=== PATIENT | male | born 1950 | race Caucasian/White ===

== ENCOUNTER 2024-12-06 09:29 | Outpatient (CLI) | payer OTHER, SELFPAY ==
--- NOTE | ~2024-12-06 | XR_ITS ---
XR abdomen/kub 1V Ordering provider: Anish Andrew MD History: . BI kidney stones, BACK/ABDOMEN PAIN X 3+ MONTHS . Comparison: November 10, 2024 FINDINGS: BOWEL: Nonobstructive bowel gas pattern. ORGANOMEGALY: None. SIGNIFICANT PATHOLOGIC CALCIFICATIONS: Left kidney stones. The largest measures 2.4 cm. Stone at the level of the right lumbosacral area is also highly suggestive measuring 2.7 cm. Faint calcification i n the right kidney area is not excluded. OTHER: No free air is seen under the diaphragm. Bilateral hip arthroplasty. Pubic symphysitis. Bilate ral sacroiliitis. IMPRESSION: NO ACUTE ABDOMINAL FINDINGS. Left kidney stones. Highly suggestive right kidney stones with possible stone in the ureter at the level of L5-S1. No change from previous examination. Reviewed, dictated and finalized at location A.
--- OUTSIDE RECORDS SUMMARY | 2024-12-06 10:16 | XMS_ITS | Clinical Summary ---
Author Organization [facility] Address [address] 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 This disclosure is being madepursuant to the Care Everywhere program and may not contain all information available regarding this patient. Last updated 18.[facility] Social History Tobacco Use Types Packs/Day Years Used Date Smoking Tobacco: Never Assessed Sex and Gender Information Value Date Recorded Sex Assigned at Not on file Legal Sex Male 4:56 PM CDT Gender Identity Not on file Sexual Orientation Not on file Plan of Treatment Health Maintenance Due Date Last Done Comments HEPATITIS C SCREENING 04/05/1966 DTAP/TDAP/TD VACCINES (1 - Tdap) 1967 PNEUMOCOCCAL VACCINE 50+ (1 of 1 - PCV) 1998 ZOSTER VACCINE (1 of 2) 1998 Respiratory Syncytial Virus (RSV) Vaccine Pt: or over 60 yrs (1 - 1-dose 75+ series) 2023 COVID-19 VACCINE ( - 2023-2 5 season) 2024 DEPRESSION SCREENING 08/09/2024 MEDICARE AWV CALENDAR YEAR 2024 INFLUENZA VACCINE (Season Ended) 2025 HEPATITIS B VACCINE Aged Out No longe r eligible based on patient's age to complete this topic HIB VACCINE Aged Out No longer eligi ble based on patient's age to complete this topic HPV VACCINE Aged Out No longer eligi ble based on patient's age to complete this topic MENINGOCOCCAL (Group B) VACC INE SHARED DECISION-MAKING Aged Out No longer eligibl e based on patient's age to complete this topic MENINGOCOCCAL GROUPS A/C/Y/W VACCINE Aged Out No longer eligible b ased on patient's age to complete this topic Insurance MEDICARE [employer] MEDICARE ADV
--- OUTSIDE RECORDS SUMMARY | 2024-12-06 10:16 | XMS_ITS | Clinical Summary ---
Author Organization [facility] Address [address] [place] [address] Care Team Providers Care Director Investment Banking Name Role Phone Neto Schaefer MD Unavailable Poncho Troy MD Unavailable Jose Kilgore PA-C Primary Care Provider [phone] Allergies No known active allergies Medications aspirin EC (ASPIRIN EC) 81 MG tablet Take 1 tablet (81 mg total) by mouth daily. 04/20/20 13 Active DAILY MULTIPLE VITAMINS Tab Take 1 tablet by mouth daily. 04/20/20 13 Active metFORMIN 500 MG tablet Take 2 tablets (1,000 mg total) by mouth 2 (two) times daily. 08/29/19 16 Active Cholecalciferol 50 MCG (2000 UT) Tab Take 1 tablet by mouth daily. 07/26/20 14 Active gabapentin 300 MG capsule Take 1 capsule (300 mg total) by mouth 3 (three) times daily. 04/03/20 16 Active Cyanocobalamin (VITAMIN B-12) 2000 MCG Tab Take 100 mcg by mouth daily. 04/03/20 16 Active [place]-3 Fatty Acids (OMEGA-3 FISH OIL) 1200 MG Cap Take 1,200 mg by mouth daily. 04/03/20 16 Active HYDROCHLOROTHIA ZIDE 12.5 MG tablet TAKE 1 TABLET BY MOUTH DAILY 90 tablet 1 11/05/19 19 Active Qdxq-Mcxzj-HUV- [place]wellia-Vit D (GLUCOSAMINE CHONDROITIN + D3 OR) Take 2 tablets by mouth daily. Active clindamycin 300 MG capsule For dentist appt.'s due to bilat hip replacements 11/07/19 Active fenofibrate 160 MG tablet Take 1 tablet (160 mg total) by mouth daily. 90 tablet 3 01/08/20 23 Active amLODIPine (NORVASC) 10 MG tablet Take 1 tablet (10 mg total) by mouth daily. 90 tablet 3 01/08/20 23 Active FARXIGA 10 MG tablet Take 1 tablet (10 mg total) by mouth daily. 08/23/19 25 Active lisinopril (PRINIVIL) 20 MG tabletIndicatio ns:Essential hypertension TAKE 1 TABLET DAILY 90 tablet 1 11/09/19 25 Active warfarin (COUMADIN) 5 MG tabletIndicatio ns:Paroxysmal atrial fibrillation (CMS/HCC HHS/HCC) NEW DOSE: Take 1/2 tablet (2.5mg total) by mouth on Tuesdays, then take 1 tablet (5mg total) all the rest. 90 tablet 11/09/19 25 Active metoprolol tartrate (LOPRESSOR) 50 MG tabletIndicatio ns:Essential hypertension Take 1 tablet (50 mg total) by mouth 2 (two) times daily. Take with 25mg tablet to equal 75mg twice a day 180 tablet 1 11/09/19 25 Active metoprolol tartrate (LOPRESSOR) 25 MG tabletIndicatio ns:Essential hypertension TAKE 1 TABLET TWICE A DAY. TAKE WITH 50 MG TO EQUAL 75 MG 180 tablet 1 11/09/19 25 Active lisinopril (PRINIVIL) 20 MG tabletIndicatio ns:Essential hypertension Take 1 tablet (20 mg total) by mouth daily. 90 tablet 08/31/19 25 2024 Discontinued metoprolol tartrate (LOPRESSOR) 25 MG tabletIndicatio ns:Essential hypertension Take 1 tablet (25 mg total) by mouth 2 (two) times daily. TAKE WITH 50MG TO EQUAL 75MG 180 tablet 08/31/19 25 2024 Discontinued metoprolol tartrate (LOPRESSOR) 50 MG tabletIndicatio ns:Essential hypertension Take 1 tablet (50 mg total) by mouth 2 (two) times daily. 180 tablet 08/31/19 25 2024 Discontinued warfarin (JANTOVEN) 5 MG tabletIndicatio ns:Paroxysmal atrial fibrillation ([facility]) Take 1 tablet (5 mg total) by mouth daily. 90 tablet 08/31/19 25 2024 Discontinued Active Problems Problem Noted Date Diagnosed Date Diverticulosis 01/15/2022 Rectal polyp 01/15/2022 Internal hemorrhoid 01/15/2022 Skin tags, anus or rectum 01/15/2022 Essential hypertension 09/09/2017 PVC (premature ventricular contraction) 09/03/19 17 Dyslipidemia 09/03/2016 Coronary artery calcification seen on CT scan Paroxysmal atrial fibrillation ([facility] HHS/HCC) Obstructive sleep apnea chandra stephenie with continuous positive airway pressure (CPAP) Diabetes mellitus ([facility]) Resolved Problems Problem Noted Date Diagnosed Date Resolved Date Coronary artery disease invo lving stebbins coronary artery of stebbins heart without angina pectoris 09/03/2016 09/07/2017 S/P ablation of atrial fibrillation 04/03/2016 09/07/2017 PAF (paroxysmal atrial fibri llation) ([facility] HHS/HCC) 01/22/2016 09/07/2017 CAD (coronary artery disease) 09/07/2017 Encounters Date Type Department Care Team Description 12/01/2024 11:05 AM CDT - 12/01/2024 11:59 PM CDT Hospital Encounter [facility] [address] [place] [address] Neto Schaefer MD Discharge Disposition: Home or Self Care (Routine Discharge) 12/01/2024 Anti-Coag Telephone Call [facility], [address] [address] Vibha Anna RN Anticoagulation (protime) 12/01/2024 Travel 11/10/2024 3:09 PM CDT - 11/10/2024 11:59 PM CDT Hospital [place] [address] [place] [address] Jose Kilgore PA-C Discharge Disposition: Home or Self Care (Routine Discharge) 11/10/2024 Travel 11/02/2024 8:35 AM CDT - 11/02/2024 11:59 PM CDT Hospital Encounter [facility] [address] [place] [address] Neto Schaefer MD Discharge Disposition: Home or Self Care (Routine Discharge) 11/02/2024 Anti-Coag Telephone Call [facility], [address] [address] [place] [address] Vibha Anna RN Anticoagulation (protime) 11/02/2024 Travel 10/13/2024 11:50 AM INTEGRATED PEST MANAGEMENT TECHNICIAN - 10/13/2024 11:59 PM INTEGRATED PEST MANAGEMENT TECHNICIAN Hospital Encounter [address] [address] Neto Schaefer MD Discharge Disposition: Home or Self Care (Routine Discharge) 10/13/2024 Anti-Coag Telephone Call [facility], [address] [address] Vibha Anna RN Anticoagulation (protime) 10/13/2024 Travel 09/28/2024 8:55 AM INTEGRATED PEST MANAGEMENT TECHNICIAN - 09/28/2024 11:59 PM INTEGRATED PEST MANAGEMENT TECHNICIAN Hospital Encounter [address] [address] Neto Schaefer MD Discharge Disposition: Home or Self Care (Routine Discharge) 09/28/2024 Anti-Coag Telephone Call [facility], [place] [address] [place] [address] Vibha Anna RN Anticoagulation (protime) 09/28/2024 Travel from Last 3 Months Immunizations Immunization Administration Dates Next Due PFIZER COVID-19 (ORIGINAL FORMULATION, PURPLE CAP) mRNA, LNP-S, PF, 30 MCG/0.3 ML DOSE 11/26/2021,06/28/2021,08/16/2020,2019 Family History Medical History Relation Comments No premature coronary artery disease. 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 Not on file Not on file Not on file Last Filed Vital Signs Vital Sign Reading Time Taken Comments Blood Pressure 130/76 08/31/2024 2:46 PM INTEGRATED PEST MANAGEMENT TECHNICIAN Pulse 85 08/31/2024 2:46 PM INTEGRATED PEST MANAGEMENT TECHNICIAN Temperature 36.7 C (98.1 F) 02/10/2022 3:31 PM CDT Respiratory Rate 16 01/15/2022 9:10 AM CDT Oxygen Saturation 98% 08/31/2024 2:46 PM INTEGRATED PEST MANAGEMENT TECHNICIAN Inhaled Oxygen Concentration - - Weight 117.9 kg (260 lb) 08/31/2024 2:46 PM INTEGRATED PEST MANAGEMENT TECHNICIAN Height 188 cm (6' 2 ) 08/31/2024 2:46 PM INTEGRATED PEST MANAGEMENT TECHNICIAN Body Mass Index 33.38 08/31/2024 2:46 PM INTEGRATED PEST MANAGEMENT TECHNICIAN Plan of Treatment Upcoming Encounters Date Type Department Care Team (Late st Contact Info) Description 03/08/2025 11:00 AM CDT Office Visit [facility]-[address] [phone] Michelle Knox, ANP-[facility]. [id number] [place], [place] [id number] Health Maintenance Due Date Last Done Comments ASCVD Statin 1950 Diabetes: Retinopathy Eye Exam 1966 Hepatitis C 1966 DTaP, Tdap and Td Vaccines (1 - Tdap) 1967 Annual Medicare Wellness Visit 2013 Zoster Vaccines (2 of 3) 09/04/2014 07/10/2014 RSV Immunization or 60+ Years (1 - 1-dose 75+ series) 2023 COVID-19 Vaccine ( season) 2024 11/26/2021, 06/28/2021, 08/16/2020, Additional history exists Hemoglobin A1C 01/18/2025 07/20/2024, 06/11, 08/20/2022, Additional history exists Kidney Health Evaluation 07/20/2025 07/20/2024 Lipid Panel 07/20/2025 07/20/2024, 06/11, 08/22/2021, Additional history exists Pneumococcal Vaccine: 50+ Years Completed 05/07/2020, 05/04/2013 Colorectal Cancer Screening Colonoscopy (10 Years) Discontinued 01/15/2022, 01/15/2022 AAA SCREENING Completed 11/10/2024, 07/10, 10/31/2018, Additional history exists Meningococcal B Vaccine Aged Out No l onger eligible based on patient's age to complete this topic Meningococcal Vaccine Aged Out No alber ton eligible based on patient's age to complete this topic RSV Immunizations Under 20 Months Aged Out No longer eligible based on patient's age to complete this topic Procedures Procedure Name Priority Date/Time Associated Diagnosis Comments PROTHROMBIN TIME, FINGERSTICK Routine 12/01/2024 11:09 AM CDT Paroxysmal atrial fibrillation ([facility]/HCC HHS/HCC) long term care phlebotomist (current) use of anticoagulants CT ABD+PEL WO CON Routine 11/10/2024 4:1 4 PM CDT Hematuria, unspecified PROTHROMBIN TIME, FINGERSTICK Routine 11/02/2024 8:41 AM CDT Paroxysmal atrial fibrillation (CMS/HCC HHS/HCC) long term care phlebotomist (current) use of anticoagulants PROTHROMBIN TIME, FINGERSTICK Routine 10/13/2024 11:51 AM INTEGRATED PEST MANAGEMENT TECHNICIAN Paroxysmal atrial fibrillation (CMS/HCC HHS/HCC) long term care phlebotomist (current) use of anticoagulants PROTHROMBIN TIME, FINGERSTICK Routine 09/28/2024 9:01 AM INTEGRATED PEST MANAGEMENT TECHNICIAN Paroxysmal atrial fibrillation (CMS/HCC HHS/HCC) skilled nursing (current) use of anticoagulants LIPID PANEL Routine 07/20/2024 9:06 AM INTEGRATED PEST MANAGEMENT TECHNICIAN Hyperlipemia Type 2 diabetes mellitus without complications (CMS/HCC HHS/HCC) Hypertension Encounter for screening for malignant neoplasm of prostate HEMOGLOBIN, GLYCOSYLATED Routine 07/20/2024 9:06 AM INTEGRATED PEST MANAGEMENT TECHNICIAN Hyperlipemia Type 2 diabetes mellitus without complications (CMS/HCC HHS/HCC) Hypertension Encounter for screening for malignant neoplasm of prostate COLONOSCOPY Routine 01/15/2022 6:27 AM CDT from Last 3 Months or Most Recently Relevant to Health Maintenance Results * (ABNORMAL) PROTIME/INR, FINGERSTICK (12/01/2024 11:09 AM CDT) Only the most recent of4 resultswithin the time period is included. PROTIME WHOLE BLOOD 29.9(H) 12.0 - 14.5 SEC 12/01/2024 11:11 AM CDT [facility] INR WHOLE BLOOD 2.5(H) 0.9 - 1.1 11:11 AM CDT [facility] Comment: Recommended INR Therapeutic Goals: 2.0-3.0 Routine Therapy 2.5-3.5 Mechanical Prosthetic Valves (High Risk) TESTING PERFORMED ON POINT OF CARE VALDEZ COAGUCHECK ANALYZER. NOTE: Heparin and Low molecular weight heparins can affect results at various INR levels. If patient is currently on these medications, an alternate method of coagulation testing is strongly recommended. 12/01/2024 11:0 9 AM CDT us Neto Schaefer MD LABORATORY Final Result [facility] [address] [place] [address], * CT ABD+PEL WO CON (11/10/2024 4:14 PM CDT) Anatomical Region Laterality Modality Abdomen Computed Tomogra phy 11/12/2024 12:2 0 PM CDT Addenda Addendum by Nick Nathan MD on 11/12/2024 12:47 PM CDT [facility] [address] [place] [address] Addendum: The renal cyst described in impression point #3 could be further characterized with a renal ultrasound. Referred By: JOSE KILGORE Interpreted By: Nick Nathan MD, 11/12/2024 12:41 PM Impressions 11/12/2024 12:32 PM CDT Impression: 1. A large 1.8 cm ovoid stone is seen within the mid right ureter resulting in mild to moderate hydronephrosis. 2. Multiple nonobstructing stones are seen within the left kidney, measuring up to 1.8 cm. 3. Bilateral renal cysts as described. 4. Other chronic and nonemergent findings as above. Referred By: JOSE KILGORE Interpreted By: Nick Nathan MD, 11/12/2024 12:20 PM Narrative 11/12/2024 12:32 PM CDT [facility] [address] [place] [address] Examination: CT abdomen and pelvis without IV contrast. Clinical Information: Hematuria. Back pain. Comparison: CT 08/04/2019. Technique: IV contrast: None Oral contrast: None. Technical comments: Standard technique. Dose reduction: This CT exam was performed using one or more of the following dose reduction techniques: Automated exposure control, adjustment of the mA and/or kV according to patient size, and/or use of iterative reconstruction technique. Findings: LOWER CHEST The visualized heart appears normal in size. Subpleural reticulation and small pleural calcifications are redemonstrated. No pleural effusion. UPPER ABDOMEN Liver and bile ducts: Normal in size and contour. No biliary dilatation. Gallbladder: Surgically absent. Pancreas: Negative. Spleen: Negative. RETROPERITONEUM Adrenals: Negative. Kidneys: A large 1.8 cm ovoid stone is present within the mid right ureter. There is associated mild to moderate hydronephrosis. No left ureteral stones identified. Multiple nonobstructing stones are seen within the mid to lower left kidney, measuring up to 1.8 cm. A prominent parapelvic left renal cyst is identified measuring 4.3 cm, increased from 2.8 cm. This is well circumscribed and water density and favored benign. A 1.6 cm exophytic water density cyst is seen involving the lower pole the right kidney, appearing new from prior although favored to represent a simple cyst. Additional ill-defined hypodense cortically based cysts are seen involving the right kidney, poorly characterized without contrast. Lymph nodes: No lymphadenopathy in the abdomen or pelvis. BOWEL AND PERITONEUM Bowel: Normal in caliber and wall thickness. Free air or fluid: None. VASCULATURE Atherosclerotic vascular calcification of the abdominal aorta without aneurysm. PELVIS Partially obscured by artifact related to the bilateral hip arthroplasties. Within limitations, no definite stones are seen within the unenhanced urinary bladder. BONES/SOFT TISSUES Moderate multilevel spondylosis. Bilateral hip arthroplasties. No acute osseous abnormality is identified. Procedure Note Nick Nathan MD - 11/12/2024 [facility] [address] [place] [address] Examination: CT abdomen and pelvis without IV contrast. Clinical Information: Hematuria. Back pain. Comparison: CT 08/04/2019. Technique: IV contrast: None Oral contrast: None. Technical comments: Standard technique. Dose reduction: This CT exam was performed using one or more of thefollowing dose reduction techniques: Automated exposure control,adjustment of the mA and/or kV according to patient size, and/or use ofiterative reconstruction technique. Findings: LOWER CHEST The visualized heart appears normal in size. Subpleural reticulation andsmall pleural calcifications are redemonstrated. No pleural effusion. UPPER ABDOMEN Liver and bile ducts: Normal in size and contour. No biliary dilatation. Gallbladder: Surgically absent. Pancreas: Negative. Spleen: Negative. RETROPERITONEUM Adrenals: Negative. Kidneys: A large 1.8 cm ovoid stone is present within the mid rightureter. There is associated mild to moderate hydronephrosis. No leftureteral stones identified. Multiple nonobstructing stones are seen withinthe mid to lower left kidney, measuring up to 1.8 cm. A prominentparapelvic left renal cyst is identified measuring 4.3 cm, increased from2.8 cm. This is well circumscribed and water density and favored benign. A1.6 cm exophytic water density cyst is seen involving the lower pole theright kidney, appearing new from prior although favored to represent asimple cyst. Additional ill-defined hypodense cortically based cysts areseen involving the right kidney, poorly characterized without contrast. Lymph nodes: No lymphadenopathy in the abdomen or pelvis. BOWEL AND PERITONEUM Bowel: Normal in caliber and wall thickness. Free air or fluid: None. VASCULATURE Atherosclerotic vascular calcification of the abdominal aorta withoutaneurysm. PELVIS Partially obscured by artifact related to the bilateral hiparthroplasties. Within limitations, no definite stones are seen within theunenhanced urinary bladder. BONES/SOFT TISSUES Moderate multilevel spondylosis. Bilateral hip arthroplasties. No acuteosseous abnormality is identified. Impression: 1. A large 1.8 cm ovoid stone is seen within the mid right ureterresulting in mild to moderate hydronephrosis. 2. Multiple nonobstructing stones are seen within the left kidney,measuring up to 1.8 cm. 3. Bilateral renal cysts as described. 4. Other chronic and nonemergent findings as above. Referred By: JOSE KILGORE Interpreted By: Nick Nathan MD, 11/12/2024 12:20 PM us Jose Kilgore PA-C CT Edited Res ult - Final * (ABNORMAL) HEMOGLOBIN, GLYCOSYLATED (07/20/2024 9:06 AM INTEGRATED PEST MANAGEMENT TECHNICIAN) HGB A1C 5.9(H) <5.7 % 07/20/2024 4:58 PM INTEGRATED PEST MANAGEMENT TECHNICIAN [facility] Comment: ADA GUIDELINES 2010 5.7 TO 6.4% INCREASED RISK OF DIABETES > OR = 6.5% CONSISTENT WITH DIABETES ESTIMATED AVG GLUCOSE 123 mg/dL 07/20/2024 4:58 PM INTEGRATED PEST MANAGEMENT TECHNICIAN [facility] 07/20/2024 9:06 AM INTEGRATED PEST MANAGEMENT TECHNICIAN us Yovani Mendoza MD LABORATORY Final Res ult [facility] [address] [place] [address], [place] [phone] * (ABNORMAL) LIPID PANEL (07/20/2024 9:06 AM INTEGRATED PEST MANAGEMENT TECHNICIAN) CHOLESTEROL 158 <200 MG/DL 07/20/2024 11:[address] [facility] TRIGLYCERIDES 223(H) <150 MG/DL 07/20/2024 11:[address] [facility] HDL 39(L) >40.0 MG/DL 07/20/2024 11:[address] [facility] LDL (CALCULATED) 74 <100 MG/DL 07/20/2024 11:[address] [facility] NON HDL CHOLESTEROL 119 <130 MG/DL 07/20/2024 11:[address] [facility] Comment: NOTE: WHEN THE TRIGLYCERIDES ARE >200 mg/dL, NON HDL C IS A SECONDARY TARGET OF THERAPY, WITH A GOAL 30 mg/dL HIGHER THAN THE IDENTIFIED LDL C GOAL. CHOL/HDL RATIO 4.1 0.0 - 4.5 07/20/2024 11:[address] [facility] VLDL CALCULATION 45 5 - 55 MG/DL 07/20/2024 11:[address] [facility] LIPID INTERPRETATION 07/20/2024 11:[address] [facility] Comment: NIH CONCENSUS REPORT RECOMMENDATIONS: ADULT CHILD LOW RISK: CHOLESTEROL <200 <170 TRIGLYCERIDE <150 --- HDL >=60 --- LDL <100 <110 BORDERLINE: CHOLESTEROL 200-239 170-199 TRIGLYCERIDE 150-199 --- HDL 40-59 --- LDL 100-159 110-129 HIGH RISK: CHOLESTEROL >=240 >=200 TRIGLYCERIDE >=200 --- HDL <40 --- LDL >=160 >=130 07/20/2024 9:06 AM [facility] Yovani Mendoza MD LABORATORY Final Res ult [facility] [address] [place] [address], from Last 3 Months or Most Recently Relevant to Health Maintenance Insurance [employer] Advance Directives Documents on File Type Date Recorded Patient Party Plan Selling Distributor Expl anation Advance Directives and Living Will 08/04/2019 4:12 PM 10/23/18 POWER OF PRESS ROOM SUPERVISOR Advance Directives and Living Will 09/19/2018 12:00 AM POWER OF PRESS ROOM SUPERVISOR FO R HEALTH CARE Advance Directives and Living Will 08/03/2018 12:00 AM POWER OF PRESS ROOM SUPERVISOR FO R HEALTH CARE Advance Directives and Living Will 06/21/2018 12:00 AM POWER OF PRESS ROOM SUPERVISOR FO R HEALTH CARE Advance Directives and Living Will 06/21/2018 12:00 AM POWER OF PRESS ROOM SUPERVISOR FO R HEALTH CARE Advance Directives and Living Will 04/08/2018 12:00 AM POWER OF PRESS ROOM SUPERVISOR FO R HEALTH CARE Advance Directives and Living Will 04/08/2018 12:00 AM POWER OF PRESS ROOM SUPERVISOR FO R HEALTH CARE Advance Directives and Living Will 03/22/2018 12:00 AM POWER OF PRESS ROOM SUPERVISOR FO R HEALTH CARE Advance Directives and Living Will 03/22/2018 12:00 AM POWER OF PRESS ROOM SUPERVISOR FO R HEALTH CARE Advance Directives and Living Will 02/01/2018 12:00 AM POWER OF PRESS ROOM SUPERVISOR FO R HEALTH CARE Advance Directives and Living Will 02/01/2018 12:00 AM POWER OF PRESS ROOM SUPERVISOR FO R HEALTH CARE Advance Directives and Living Will 12/14/2017 12:00 AM POWER OF PRESS ROOM SUPERVISOR FO R HEALTH CARE Advance Directives and Living Will 12/14/2017 12:00 AM POWER OF PRESS ROOM SUPERVISOR FO R HEALTH CARE Advance Directives and Living Will 09/13/2017 12:00 AM POWER OF PRESS ROOM SUPERVISOR FO R HEALTH CARE Advance Directives and Living Will 09/13/2017 12:00 AM POWER OF PRESS ROOM SUPERVISOR FO R HEALTH CARE Advance Directives and Living Will 08/03/2017 12:00 AM POWER OF PRESS ROOM SUPERVISOR FO R HEALTH CARE Advance Directives and Living Will 08/03/2017 12:00 AM POWER OF PRESS ROOM SUPERVISOR FO R HEALTH CARE Advance Directives and Living Will 06/22/2017 12:00 AM POWER OF PRESS ROOM SUPERVISOR FO R HEALTH CARE Advance Directives and Living Will 06/22/2017 12:00 AM POWER OF PRESS ROOM SUPERVISOR FO R HEALTH CARE Advance Directives and Living Will 03/23/2017 12:00 AM POWER OF PRESS ROOM SUPERVISOR FO R HEALTH CARE Advance Directives and Living Will 03/23/2017 12:00 AM POWER OF PRESS ROOM SUPERVISOR FO R HEALTH CARE Advance Directives and Living Will 02/02/2017 12:00 AM POWER OF PRESS ROOM SUPERVISOR FO R HEALTH CARE Advance Directives and Living Will 02/02/2017 12:00 AM POWER OF PRESS ROOM SUPERVISOR FO R HEALTH CARE Advance Directives and Living Will 12/14/2016 12:00 AM POWER OF PRESS ROOM SUPERVISOR FO R HEALTH CARE Advance Directives and Living Will 12/14/2016 12:00 AM POWER OF PRESS ROOM SUPERVISOR FO R HEALTH CARE Advance Directives and Living Will 09/08/2016 12:00 AM POWER OF PRESS ROOM SUPERVISOR FO R HEALTH CARE Advance Directives and Living Will 09/08/2016 12:00 AM POWER OF PRESS ROOM SUPERVISOR FO R HEALTH CARE Advance Directives and Living Will 07/27/2016 12:00 AM POWER OF PRESS ROOM SUPERVISOR FO R HEALTH CARE Advance Directives and Living Will 07/27/2016 12:00 AM POWER OF PRESS ROOM SUPERVISOR FO R HEALTH CARE Advance Directives and Living Will 07/27/2016 12:00 AM POWER OF PRESS ROOM SUPERVISOR FO R HEALTH CARE Advance Directives and Living Will 07/27/2016 12:00 AM POWER OF PRESS ROOM SUPERVISOR FO R HEALTH CARE Advance Directives and Living Will 06/15/2016 12:00 AM POWER OF PRESS ROOM SUPERVISOR FO R HEALTH CARE Advance Directives and Living Will 06/15/2016 12:00 AM POWER OF PRESS ROOM SUPERVISOR FO R HEALTH CARE Advance Directives and Living Will 06/05/2016 12:00 AM POWER OF PRESS ROOM SUPERVISOR FO R HEALTH CARE Advance Directives and Living Will 06/05/2016 12:00 AM POWER OF PRESS ROOM SUPERVISOR FO R HEALTH CARE Care Teams Director Investment Banking Relationship Specialty Start Date End Date Jose Kilgore, PAJlC [address] [place], [place] [id number] [place] [address] PCP - General 08/28/24 Neto Schaefer MD [facility]. [address] [address] [place] [employer] Applications Development Analyst CARDIOVASCULAR DISEASE 02/21/16 Poncho Troy MD [facility]. [address] [address] Applications Development Analyst CARDIOVASCULAR DISEASE 03/09/16
--- OUTSIDE RECORDS SUMMARY | 2024-12-06 10:16 | XMS_ITS | Encounter Summary ---
Author Organization [facility] Address [address] [facility] [address] Care Team Providers Care Shellfish Checker Name Role Phone Unavailable Primary Care Provider Unavailabl e Encounter Details Date Type Department Care Team (Late st Contact Info) Description 12/06/2020 Lab Requisition [facility] DermPath Lab [address] [facility] [place] [phone] Neo Tang MD [address] [address] Social History Tobacco Use Types Packs/Day Years Used Date Smoking Tobacco: Never Assessed Sex and Gender Information Value Date Recorded Sex Assigned at Not on file Legal Sex Male 4:56 PM CDT Gender Identity Not on file Sexual Orientation Not on file documented as of this encounter Plan of Treatment Not on file documented as of this encounter Procedures Procedure Name Priority Date/Time Associated Diagnosis Comments DERMATOPATHOLOGY Routine 12/05/2020 12:0 0 AM CDT documented in this encounter Results * DERMATOPATHOLOGY (12/05/2020 12:00 AM CDT) Case Report Dermatopathology Report Case: [id number] Authorizing Provider: Neo Tang MD Collected: 12/05/2020 12:00 AM Ordering Location: [facility] DermPath Lab Received: 12/06/2020 06:12 AM Pathologist: Debra De León MD Specimens: A) - Skin, left dorsal hand B) - Skin, left postauricular hairline 1:45 PM CDT DERMATOPATHOLOGY LABORATORY Final Diagnosis Specimen A. 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 Path# [id number]. B: SCCA vs AK. Path# [id number]. 1:45 PM T DERMATOPATHOLOGY LABORATORY Gross Description Specimen A: Received is one formalin filled container labeled with the patient's name and designated left dorsal hand. The specimen consists of a shave biopsy measuring [id number]. Jar 0. Specimen B: Received is one formalin filled container labeled with the patient's name and designated left postauricular hairline. The specimen consists of a shave biopsy measuring [id number]. Jar 0. 1:45 PM T DERMATOPATHOLOGY LABORATORY Microscopic Description Specimen A. SKIN, left dorsal hand: The epidermis shows parakeratosis, full thickness disorderly maturation of keratinocytes, mitoses at different levels, and dyskeratotic cells. Specimen B. SKIN, left postauricular hairline: Sections show skin with irregularly shaped nests of keratinocytes with evidence of cornification. In some nests, there is loss of cohesion between the neoplastic cells, as well as individual dyskeratotic cells that lack intercellular bridges. 1:45 PM T DERMATOPATHOLOGY LABORATORY Disclaimer An external and internal positive and negative controls are appropriate for the histochemical, immunohistochemical and immunofluorescence stain(s) in this case (if any), except where stated explicitly. The performance characteristics of the stain(s) cited in this report were developed and its performance characteristic determined by the Dermatopathology Laboratory at [facility], directed by Dr. Violetta Daniel. These tests need not be, and therefore are not, approved by the [place] Food and Drug Administration. The tests are used for clinical purposes. Billing Codes Specimen Charges Stain Charges 42279 90040 1 1 1 1:45 PM CDT DERMATOPATHOLOGY LABORATORY Embedded Images 1:45 PM CDT DERMATOPATHOLOGY LABORATORY Pathology/Cytology TISSUE SPECIMEN FROM SKIN / Unknown 12/05/2020 12/06/2020 6:12 AM CDT Miscellaneous samples (specimen) TISSUE SPECIMEN FROM SKIN / Unknown 12/05/2020 12/06/2020 6:12 AM CDT us Noe Tang MD LAB - PATHOLOGY/CYTOLOGY ORDER ESTRELLA Final Result DERMATOPATHOLOGY LABORATORY [facility] - Department of Dermatology [facility] Medicine [address] [place] [address], [address]rd [address] [phone] documented in this encounter Visit Diagnoses Not on filedocumented in this encounter
--- OUTSIDE RECORDS SUMMARY | 2024-12-06 10:16 | XMS_ITS | Encounter Summary ---
Author Organization [facility] Address [address] [place] [address] Care Team Providers Care Development Professional Name Role Phone Neto Schaefer MD Unavailable Goyo Beavers MD Primary Care Provider [phone] Poncho Troy MD Unavailable Yovani Mendoza MD Primary Care Provider + [phone] Janee NathC Primary Care Provider [phone] Encounter Details Date Type Department Care Team (Late st Contact Info) Description 08/23/[address] [facility] [address] [place] [phone] Michelle Knox, ANP-BC [id number] [place] [address] Test results ordered by primary Goyo Beavers MD Social History Tobacco Use Types Packs/Day Years Used Date Smoking Tobacco: Former Cigarettes Q uit: 2010 Smokeless Tobacco: Never Alcohol Use Standard Drinks/Week Comments No 0 (1 standard drink = 0.6 oz pur e alcohol) Sex and Gender Information Value Date Recorded Sex Assigned at Male 08/22/2024 10:32 AM LABORER WHARF Legal Sex Male 11:40 PM CDT Gender Identity Not on file Sexual Orientation Not on file 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 No / Unsure 08/22/2021 9:15 AM LABORER WHARF documented as of this encounter Plan of Treatment Upcoming Encounters Date Type Department Care Team (Late st Contact Info) Description 03/08/2025 11:00 AM CDT Office Visit [facility] [address] [place] [phone] Michelle Knox, ANP-BC [address] [address] documented as of this encounter Visit Diagnoses Not on filedocumented in this encounter Care Teams Development Professional Relationship Specialty Start Date End Date Goyo Beavers MD [address] [address] PCP - General INTERNAL MEDICINE 03/09/16 07/08/22 Yovani Mendoza MD [address] [place] [address] PCP - General FAMILY PRACTICE 07/09/22 08/27/24 Janee Nath PA-C [address] [place] [address] PCP - General 08/28/24 Neto Schaefer MD [facility] [address] [place], [place] [address] Will Extrusion Press Supervisor CARDIOVASCULAR DISEASE 02/21/16 Poncho Troy MD Three [facility]. [address] [address] EP Extrusion Press Supervisor CARDIOVASCULAR DISEASE 03/09/16 documented as of this encounter
--- OUTSIDE RECORDS SUMMARY | 2024-12-06 10:16 | XMS_ITS | Encounter Summary ---
Author Organization [facility] Address [address] [facility] [place] [address] Care Team Providers Care Body Shop Technician Name Role Phone Unavailable Primary Care Provider Unavailabl e Encounter Details Date Type Department Care Team (Late st Contact Info) Description 08/30/2020 Lab Requisition [facility] DermPath Lab [address] [facility] [place] [phone] Neo Tang MD [address] [place] [address] Social History Tobacco Use Types [...] Priority Date/Time Associated Diagnosis Comments DERMATOPATHOLOGY Routine 08/29/2020 3:27 AM LEATHER STRETCHER documented in this encounter Results * DERMATOPATHOLOGY (08/29/2020 3:27 AM LEATHER STRETCHER) Case Report Dermatopathology Report Case: [id number] Authorizing Provider: Neo Tang MD Collected: 08/29/2020 03:27 AM Ordering Location: [facility] DermPath Lab Received: 08/30/2020 07:26 AM Pathologist: Constanza Castro MD Specimens: A) - Skin, frontal scalp B) - Skin, crown 1:20 PM LEATHER STRETCHER DERMATOPATHOLOGY LABORATORY Final Diagnosis Specimen A. SKIN, frontal scalp: HYPERPLASTIC (HYPERTROPHIC) ACTINIC KERATOSIS, LICHENOID (L57.0)= OVERLYING CUTANEOUS HORN (L85.8) Specimen B. SKIN, crown: HYPERPLASTIC (HYPERTROPHIC) ACTINIC KERATOSIS, LICHENOID (L57.0) OVERLYING CUTANEOUS HORN (L85.8) 1:20 PM [facility] DERMATOPATHOLOGY LABORATORY Clinical History A: SCCA vs AK. Path# [id number]. B: SCCA vs AK. Path# [id number]. 1:20 PM [facility] DERMATOPATHOLOGY LABORATORY Gross Description Specimen A: Received is one formalin filled container labeled with the patient's name and designated frontal scalp. The specimen consists of a shave biopsy measuring [id number]. Jar 0+. Specimen B: Received is one formalin filled container labeled with the patient's name and designated crown. The specimen consists of a shave biopsy measuring 35m31l7sw, bisected. Jar 0+. 1:20 PM [facility] DERMATOPATHOLOGY LABORATORY Microscopic Description Specimen A. SKIN, frontal scalp: There is hyperkeratosis alternating with parakeratosis. There is epidermal hyperplasia with disorderly maturation of keratinocytes with nuclear pleomorphism confined to the lower half of the epidermis. The dermis shows a band-like, chronic inflammatory infiltrate with occasional apoptotic keratinocytes and some basal vacuolar alteration. There is a column of marked compact hyperkeratosis. Specimen B. SKIN, crown: There is hyperkeratosis alternating with parakeratosis. There is epidermal hyperplasia with disorderly maturation of keratinocytes with nuclear pleomorphism confined to the lower half of the epidermis. The dermis shows a band-like, chronic inflammatory infiltrate with occasional apoptotic keratinocytes and some basal vacuolar alteration. There is a column of marked compact hyperkeratosis. 1:20 PM [facility] DERMATOPATHOLOGY LABORATORY Disclaimer An external and internal positive and negative controls are appropriate for the histochemical, immunohistochemical and immunofluorescence stain(s) in this case (if any), except where stated explicitly. The performance characteristics of the stain(s) cited in this report were developed and its performance characteristic determined by the Dermatopathology Laboratory at [facility], directed by Dr. Violetta Daniel. These tests need not be, and therefore are not, approved by the [place] Food and Drug Administration. The tests are used for clinical purposes. Billing Codes Specimen Charges Stain Charges 08640 25910 1 1 1 1:20 PM [facility] DERMATOPATHOLOGY LABORATORY Embedded Images 1:20 PM [facility] DERMATOPATHOLOGY LABORATORY Pathology/Cytology TISSUE SPECIMEN FROM SKIN / Unknown 08/29/2020 3:27 AM LEATHER STRETCHER 08/30/2020 7:26 AM LEATHER STRETCHER Miscellaneous samples (specimen) TISSUE SPECIMEN FROM SKIN / Unknown 08/29/2020 3:27 AM LEATHER STRETCHER 08/30/2020 7:26 AM LEATHER STRETCHER us Neo Tang MD LAB - PATHOLOGY/CYTOLOGY ORDER ESTRELLA Final Result DERMATOPATHOLOGY LABORATORY [facility] - Department of Dermatology [facility] [address] [place] [address], [address] Floor [address] [phone] documented in this encounter Visit Diagnoses Not on filedocumented in this encounter
--- OUTSIDE RECORDS SUMMARY | 2024-12-06 10:16 | XMS_ITS | Encounter Summary ---
Author Organization [facility] Address [address] [place] [address] Care Team Providers Care Auto Parts Counter Person Name Role Phone Neto Schaefer MD Unavailable Goyo Beavers MD Primary Care Provider [phone] Poncho Troy MD Unavailable Bakari Olson MD Primary Care Provider [phone] Yovani Mendoza MD Primary Care Provider [phone] Janee Nath PA-C Primary Care Provider + [phone] Encounter Details Date Type Department Care Team (Late st Contact Info) Description 02/21/2016 Abstract [facility] AT [address] [address] Janeth Cook MA Social History Tobacco Use Types Packs/Day Years Used Date Smoking Tobacco: Former Sex and Gender Information Value Date Recorded Sex Assigned at Male 08/22/2024 10:32 AM DIGITAL MARKETING INTERN Legal Sex Male 11:40 PM CDT Gender Identity Not on file Sexual Orientation Not on file documented as of this encounter Plan of Treatment Upcoming Encounters Date Type Department Care Team (Late st Contact Info) Description 03/08/2025 11:00 AM CDT Office Visit [facility] [phone] Michelel Knox, ANP-BC Three [facility]. [facility] [address] [place], [place] [id number] documented as of this encounter Procedures Procedure Name Priority Date/Time Associated Diagnosis Comments PROTIME (OUTSIDE LAB) Routine 12/07/2017 CBC (OUTSIDE LAB) Routine 12/07/2017 COMPREHENSIVE METABOLIC PANEL Routine 12/07/2017 LIPID PANEL Routine 12/07/2017 HEMOGLOBIN, GLYCOSYLATED Routine 12/07/2017 PROTIME (OUTSIDE LAB) Routine 11/04/2017 PROTIME (OUTSIDE LAB) Routine 10/04/2017 PROTIME (OUTSIDE LAB) Routine 08/30/2017 PROTIME (OUTSIDE LAB) Routine 06/29/2017 PROTIME (OUTSIDE LAB) Routine 05/28/2017 PROTIME (OUTSIDE LAB) Routine 04/19/2017 PROTIME (OUTSIDE LAB) Routine 03/22/2017 PROTIME (OUTSIDE LAB) Routine 02/16/2017 PROTIME (OUTSIDE LAB) Routine 01/18/2017 PROTIME (OUTSIDE LAB) Routine 12/21/2016 CBC (OUTSIDE LAB) Routine 12/21/2016 PROTIME (OUTSIDE LAB) Routine 10/19/2016 PROTIME (OUTSIDE LAB) Routine 09/14/2016 CBC (OUTSIDE LAB) Routine 09/04/2016 BASIC METABOLIC PANEL Routine 09/04/2016 LIPID PANEL Routine 09/04/2016 PROTIME (OUTSIDE LAB) Routine 08/24/2016 PROTIME (OUTSIDE LAB) Routine 07/21/2016 PROTIME (OUTSIDE LAB) Routine 06/13/2016 PROTIME (OUTSIDE LAB) Routine 05/07/2016 PROTIME (OUTSIDE LAB) Routine 04/06/2016 PROTIME (OUTSIDE LAB) Routine 03/09/2016 PROTIME (OUTSIDE LAB) Routine 02/20/2016 documented in this encounter Results * HEMOGLOBIN, GLYCOSYLATED (12/07/2017) HGB A1C 6.4 12/07/2017 us Doc [facility] Abstract LABORATORY Final Result * LIPID PANEL (12/07/2017) CHOLESTEROL 188 HDL 33 TRIGLYCERIDES 421 12/07/2017 us Doc [facility] LABORATORY Final Result * COMPREHENSIVE METABOLIC PANEL (12/07/2017) SODIUM S/P/B 141 POTASSIUM S/P/B 4.5 CO2 24 CHLORIDE S/P/B 100 GLUCOSE 121 mg/dL CALCIUM S/P/B 10 BUN 21 CREATININE S/P/B 1.17 0.7 - 1.3 EGFR AFR. AMER. 73 EGFR NON-AFR. AMER. 63 <=90 ALKALINE PHOSPHATASE S/P/B 51 ALT 31 AST 31 BILIRUBIN TOTAL S/P/B 0.4 ALBUMIN S/P/B 4.6 3.5 - 5.0 TOTAL PROTEIN S/P/B 7.0 GLOBULIN 2.4 12/07/2017 us Doc [facility] LABORAT[facility] Edited Resul t - Final * CBC (OUTSIDE LAB) (12/07/2017) WBC 6.2 HGB 15.6 HCT 45.4 PLT 253 12/07/2017 us Doc [facility] Abstract LAB-OUTSIDE/ABSTRACTED Final Result * PROTIME (OUTSIDE LAB) (12/07/2017) PROTIME 21.6 INR 2.2 12/07/2017 us Doc [facility] Abstract LAB-OUTSIDE/ABSTRACTED Final Result * PROTIME (OUTSIDE LAB) (11/04/2017) PROTIME 21 INR 2.1 11/04/2017 us Doc [facility] Abstract LAB-OUTSIDE/ABSTRACTED Final Result * PROTIME (OUTSIDE LAB) (10/04/2017) PROTIME 30.5 INR 3.2 10/04/2017 us Doc [facility] Abstract LAB-OUTSIDE/ABSTRACTED Final Result * PROTIME (OUTSIDE LAB) (08/30/2017) PROTIME 29.8 INR 3.1 08/30/2017 us Doc [facility] Abstract LAB-OUTSIDE/ABSTRACTED Final Result * PROTIME (OUTSIDE LAB) (06/29/2017) PROTIME 22.6 INR 2.3 06/29/2017 us Doc [facility] Abstract LAB-OUTSIDE/ABSTRACTED Final Result * PROTIME (OUTSIDE LAB) (05/28/2017) PROTIME 25.9 INR 2.7 05/28/2017 us Doc [facility] Abstract LAB-OUTSIDE/ABSTRACTED Final Result * PROTIME (OUTSIDE LAB) (04/19/2017) PROTIME 23.7 INR 2.4 04/19/2017 us Doc [facility] Abstract LAB-OUTSIDE/ABSTRACTED Final Result * PROTIME (OUTSIDE LAB) (03/22/2017) PROTIME 28.5 INR 2.8 03/22/2017 us Doc [facility] Abstract LAB-OUTSIDE/ABSTRACTED Final Result * PROTIME (OUTSIDE LAB) (02/16/2017) PROTIME 34.3 INR 3.4 02/16/2017 us Doc [facility] Abstract LAB-OUTSIDE/ABSTRACTED Final Result * PROTIME (OUTSIDE LAB) (01/18/2017) PROTIME 32.2 INR 3.2 01/18/2017 us Doc [facility] Abstract LAB-OUTSIDE/ABSTRACTED Final Result * CBC (OUTSIDE LAB) (12/21/2016) WBC 5.8 HGB 14.9 HCT 45 PLT 235 12/21/2016 us Doc [facility] Abstract LAB-OUTSIDE/ABSTRACTED Final Result * PROTIME (OUTSIDE LAB) (12/21/2016) PROTIME 29.7 INR 2.9 12/21/2016 us Doc [facility] Abstract LAB-OUTSIDE/ABSTRACTED Final Result * PROTIME (OUTSIDE LAB) (10/19/2016) Pathologist [facility] PROTIME 29.4 INR 2.9 10/19/2016 us Doc [facility] Abstract LAB-OUTSIDE/ABSTRACTED Final Result * PROTIME (OUTSIDE LAB) (09/14/2016) Pathologist [facility] PROTIME 23.6 INR 2.3 09/14/2016 us Doc [facility] Abstract LAB-OUTSIDE/ABSTRACTED Final Result * LIPID PANEL (09/04/2016) Pathologist [facility] CHOLESTEROL 209 HDL 35 TRIGLYCERIDES 503 09/04/2016 us Doc [facility] LABORATORY Final Result * BASIC METABOLIC PANEL (09/04/2016) Pathologist [facility] SODIUM S/P/B 141 POTASSIUM S/P/B 4.6 CO2 22 CHLORIDE S/P/B 99 GLUCOSE 129 CALCIUM S/P/B 10 BUN 18 CREATININE S/P/B 1.22 EGFR AFR. AMER. 7- EGFR NON-AFR. AMER. 61 09/04/2016 us Doc [facility] LABORATORY Edited Resul t - Final * CBC (OUTSIDE LAB) (09/04/2016) Pathologist [facility] WBC 7.0 HGB 16.0 HCT 46.8 PLT 262 09/04/2016 us Doc [facility] Abstract LAB-OUTSIDE/ABSTRACTED Final Result * PROTIME (OUTSIDE LAB) (08/24/2016) PROTIME 32.4 INR 3.2 08/24/2016 Doc [facility] Abstract LAB-OUTSIDE/ABSTRACTED Final Result * PROTIME (OUTSIDE LAB) (07/21/2016) PROTIME 28.6 INR 2.8 07/21/2016 Doc [facility] Abstract LAB-OUTSIDE/ABSTRACTED Final Result * PROTIME (OUTSIDE LAB) (06/13/2016) PROTIME 20.0 INR 2.0 06/13/2016 Doc [facility] Abstract LAB-OUTSIDE/ABSTRACTED Final Result * PROTIME (OUTSIDE LAB) (05/07/2016) PROTIME 25.3 INR 2.5 05/07/2016 Doc [facility] Abstract LAB-OUTSIDE/ABSTRACTED Final Result * PROTIME (OUTSIDE LAB) (04/06/2016) PROTIME 23.5 INR 2.3 04/06/2016 Result Alfie Schaefer MD LAB-OUTSIDE/ABSTRACTED Final Res ult * PROTIME (OUTSIDE LAB) (03/09/2016) PROTIME 27.6 INR 2.7 03/09/2016 Result Alfie Schaefer MD LAB-OUTSIDE/ABSTRACTED Edited Re sult - Final * PROTIME (OUTSIDE LAB) (02/20/2016) PROTIME 37.6 INR 3.6 02/20/2016 Result Alfie Schaefer MD LAB-OUTSIDE/ABSTRACTED Final Res ult documented in this encounter Visit Diagnoses Not on filedocumented in this encounter Care Teams Auto Parts Counter Person Relationship Specialty Start Date End Date Goyo Beavers MD [place] [facility] [address] [place] [address] PCP - General INTERNAL MEDICINE 03/09/16 07/08/22 [place] [address] [address] [facility] [address] [place] [address] PCP - General 04/19/14 03/08/16 Yovani Mendoza MD [facility] [place] [address] PCP - General FAMILY PRACTICE 07/09/22 08/27/24 Janee Nath PA-C [address] [place] [address] [address] [place] [address] PCP - General 08/28/24 Neto Schaefer MD [address] [address] [place] [address] [place] [employer] Stone Quarry Supervisor CARDIOVASCULAR DISEASE 02/21/16 Poncho Troy MD [address] [place] [address] [place], [place] [address] EP Dimension Stone Quarry Supervisor CARDIOVASCULAR DISEASE 03/09/16 documented as of this encounter
--- OUTSIDE RECORDS SUMMARY | 2024-12-06 10:16 | XMS_ITS | Encounter Summary ---
Author Organization [facility] Address [address] [place] [address] Care Team Providers Care Bench Worker Hollow Handle Name Role Phone Neto Schaefer MD Unavailable Goyo Beavers MD Primary Care Provider [phone] Poncho Troy MD Unavailable Yovani Mendoza MD Primary Care Provider [phone] Janee Nath-C Primary Care Provider [phone] Encounter Details Date Type Department Care Team (Late st Contact Info) Description 09/03/2021 [employer] Sc[employer] Message [facility] [address] [place] [phone] Michelle Knox, ANP-BC [facility]. [address] [place] [address] Switched Pharmacy to [facility] [employer] [facility] Social History Tobacco Use Types Packs/Day Years Used Date Smoking Tobacco: Former Cigarettes Q uit: 2010 Smokeless Tobacco: Never Alcohol Use Standard Drinks/Week Comments No 0 (1 standard drink = 0.6 oz pur e alcohol) Sex and Gender Information Value Date Recorded Sex Assigned at Male 08/22/2024 10:32 AM SWEET GOODS MACHINE OPERATOR Legal Sex Male 11:40 PM CDT Gender [...] COVID-19? No / Unsure 08/22/2021 9:15 AM SWEET GOODS MACHINE OPERATOR documented as of this encounter Plan of Treatment Upcoming Encounters Date Type Department Care Team (Late st Contact Info) Description 03/08/2025 11:00 AM CDT Office Visit [facility] [address] [place] [phone] Michelle Knox, ANP-BC [address] [address] documented as of this encounter Visit Diagnoses Not on filedocumented in this encounter Care Teams Bench Worker Hollow Handle Relationship Specialty Start Date End Date Goyo Beavers MD [address] [address] PCP - General INTERNAL MEDICINE 03/09/16 07/08/22 Yovani Mendoza MD [address] [place] [address] PCP - General FAMILY PRACTICE 07/09/22 08/27/24 Janee Nath PA-C [address] [place] [address] PCP - General 08/28/24 Neto Schaefer MD [facility] [address] [place], [place] [address] Will Adult Daycare Coordinator CARDIOVASCULAR DISEASE 02/21/16 Poncho Troy MD Three [facility]. [address] [address] EP Adult Daycare Coordinator CARDIOVASCULAR DISEASE 03/09/16 documented as of this encounter
--- OUTSIDE RECORDS SUMMARY | 2024-12-06 10:16 | XMS_ITS | Encounter Summary ---
Author Organization [facility] Address [address] [place] [address] Care Team Providers Care Carpentry Professional Name Role Phone Neto Schaefer MD Unavailable Goyo Beavers MD Primary Care Provider [phone] Poncho Troy MD Unavailable Yovani Mendoza MD Primary Care Provider [phone] Janee Nath PA-C Primary Care Provider [phone] Encounter Details Date Type Department Care Team (Late st Contact Info) Description 04/22/2018 Abstract [facility] at [address] [address] Janeth Cook MA Social History Tobacco Use Types Packs/Day Years Used Date Smoking Tobacco: Former Cigarettes Q uit: 2010 Smokeless Tobacco: Never Alcohol Use Standard Drinks/Week Comments No 0 (1 standard drink = 0.6 oz pur e alcohol) Sex and Gender Information Value Date Recorded Sex Assigned at Male 08/22/2024 10:32 AM INSPECTOR HEATING AND REFRIGERATION Legal Sex Male 11:40 PM CDT Gender Identity Not on file Sexual Orientation Not on file 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 [place] [address] documented as of this encounter Procedures Procedure Name Priority Date/Time Associated Diagnosis Comments PROTIME (OUTSIDE LAB) Routine 10/04/2019 PROTIME (OUTSIDE LAB) Routine 03/21/2019 PROTIME (OUTSIDE LAB) Routine 12/20/2018 PROTIME (OUTSIDE LAB) Routine 10/18/2018 PROTIME (OUTSIDE LAB) Routine 09/20/2018 PROTIME (OUTSIDE LAB) Routine 08/16/2018 PROTHROMBIN TIME, VENOUS Routine 07/25/2018 PROTIME (OUTSIDE LAB) Routine 04/21/2018 documented in this encounter Results * PROTIME (OUTSIDE LAB) (10/04/2019) PROTIME 23.6 INR 2.4 10/04/2019 us Doc [facility] Abstract LAB-OUTSIDE/ABSTRACTED Final Result * PROTIME (OUTSIDE LAB) (03/21/2019) PROTIME 23.5 INR 2.3 03/21/2019 us [facility] Abstract LAB-OUTSIDE/ABSTRACTED Final Result * PROTIME (OUTSIDE LAB) (12/20/2018) PROTIME 26.3 INR 2.6 12/20/2018 us Doc [facility] Abstract LAB-OUTSIDE/ABSTRACTED Final Result * PROTIME (OUTSIDE LAB) (10/18/2018) PROTIME 23.8 INR 2.4 10/18/2018 us Doc [facility] LAB-OUTSIDE/ABSTRACTED Final Result * PROTIME (OUTSIDE LAB) (09/20/2018) PROTIME 22.2 INR 2.2 09/20/2018 us Doc [facility] LAB-OUTSIDE/ABSTRACTED Final Result * PROTIME (OUTSIDE LAB) (08/16/2018) PROTIME 25.8 INR 2.6 08/16/2018 us Doc [facility] LAB-OUTSIDE/ABSTRACTED Final Result * PROTIME/INR, VENOUS (07/25/2018) PROTIME WHOLE BLOOD 30.5 INR WHOLE BLOOD 3.10 07/25/2018 us [facility] Abstract LABORATORY Final Result * PROTIME (OUTSIDE LAB) (04/21/2018) PROTIME 24.9 INR 2.5 04/21/2018 us [facility] Abstract LAB-OUTSIDE/ABSTRACTED Final Result documented in this encounter Visit Diagnoses Not on filedocumented in this encounter Care Teams Carpentry Professional Relationship Specialty Start Date End Date Goyo Beavers MD [address] [address] PCP - General INTERNAL MEDICINE 03/09/16 07/08/22 Yovani Mendoza MD [address] [place] [address] [phone] PCP - General FAMILY PRACTICE 07/09/22 08/27/24 Janee Nath PA-C [address] [place] [address] [id number] PCP - General 08/28/24 Neto Schaef[facility] MD [facility] [address] [phone] [place] Bondactor Machine Operator CARDIOVASCULAR DISEASE 02/21/16 Poncho Troy MD [facility] [address] [id number] EP Bondactor Machine Operator CARDIOVASCULAR DISEASE 03/09/16 documented as of this encounter
--- OUTSIDE RECORDS SUMMARY | 2024-12-06 10:16 | XMS_ITS | Encounter Summary ---
Author Organization [facility] Address [address] [facility] [place] [address] Care Team Providers Care Java Scala Developer Name Role Phone Unavailable Primary Care Provider Unavailabl e Encounter Details Date Type Department Care Team (Late st Contact Info) Description 05/10/2023 Lab Requisition [facility] - DermPath Lab [address] [facility] [place] [phone] Neo Tang MD [address] [address] Social History Tobacco Use Types [...] Priority Date/Time Associated Diagnosis Comments DERMATOPATHOLOGY Routine 05/10/2023 12:0 0 AM CDT documented in this encounter Results * DERMATOPATHOLOGY (05/10/2023 12:00 AM CDT) Case Report Dermatopathology Report Case: [id number] Authorizing Provider: Neo Tang MD Collected: 05/10/2023 12:00 AM Ordering Location: [facility] DermPath Lab Received: 05/10/2023 04:27 PM Pathologist: Marian Dalal MD Specimen: Skin, left forearm 12:59 PM CDT DERMATOPATHOLOGY LABORATORY Final Diagnosis Specimen A. SKIN, left forearm: BENIGN VERRUCOUS KERATOSIS, INFLAMED (L82.1) 12:59 PM CDT DERMATOPATHOLOGY LABORATORY Clinical History SCCA vs AK. Path# [id number] 12:59 PM CDT DERMATOPATHOLOGY LABORATORY Gross Description Specimen A: Received is one formalin filled container labeled with the patient's name and designated left forearm. The specimen consists of a shave biopsy measuring 10x8x3 mm. Jar 0. 12:59 PM CDT DERMATOPATHOLOGY LABORATORY Microscopic Description Specimen A. SKIN, left forearm: Sections show hyperkeratosis, papillomatosis, hypergranulosis, and acanthosis. Inflammatory cells are present within the dermis. These histological findings can be seen in a verruca vulgaris or a seborrheic keratosis. 12:59 PM CDT DERMATOPATHOLOGY LABORATORY Disclaimer An external and internal positive and negative controls are appropriate for the histochemical, immunohistochemical and immunofluorescence stain(s) in this case (if any), except where stated explicitly. The performance characteristics of the stain(s) cited in this report were developed and its performance characteristic determined by the Dermatopathology Laboratory at [facility], directed by Dr. Violetta Daniel. These tests need not be, and therefore are not, approved by the [place] Food and Drug Administration. The tests are used for clinical purposes. Billing Codes Specimen Charges Stain Charges 34573 1 12:59 PM CDT DERMATOPATHOLOGY LABORATORY Embedded Images 12:59 PM CDT DERMATOPATHOLOGY LABORATORY Pathology/Cytolog y TISSUE SPECIMEN FROM SKIN / Unknown 05/10/2023 05/10/2023 4:27 PM CDT us Neo Tang MD LAB - PATHOLOGY/CYTOLOGY ORDER ESTRELLA Final Result DERMATOPATHOLOGY LABORATORY [facility] - Department of Dermatology [address] [place] [address], [facility] [phone] documented in this encounter Visit Diagnoses Not on filedocumented in this encounter
--- OUTSIDE RECORDS SUMMARY | 2024-12-06 10:16 | XMS_ITS | Encounter Summary ---
Author Organization [facility] Address [address] [place] [address] Care Team Providers Care Ornamental Ironworker Helper Name Role Phone Unavailable Primary Care Provider Unavailabl e Encounter Details Date Type Department Care Team (Late st Contact Info) Description 05/15/2021 Lab Requisition [facility] DermPath Lab [address] [facility] [place] [phone] Neo Tang MD [address] [place] [address] Social History Tobacco Use Types [...] Priority Date/Time Associated Diagnosis Comments DERMATOPATHOLOGY Routine 05/14/2021 12:0 0 AM CDT documented in this encounter Results * DERMATOPATHOLOGY (05/14/2021 12:00 AM CDT) Case Report Dermatopathology Report Case: [id number] Authorizing Provider: Neo Tang MD Collected: 05/14/2021 12:00 AM Ordering Location: [facility] DermPath Lab Received: 05/15/2021 08:04 AM Pathologist: Debra De León MD Specimen: Skin, ant neck 3:16 PM CDT DERMATOPATHOLOGY LABORATORY Final Diagnosis Specimen A. 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 Path # [id number]. 3:16 PM CDT DERMATOPATHOLOGY LABORATORY Gross Description Specimen A: Received is one formalin filled container labeled with the patient's name and designated ant neck. The specimen consists of a shave biopsy measuring 6v7y0bz. Jar 0. 3:16 PM CDT DERMATOPATHOLOGY LABORATORY Microscopic Description Specimen A. SKIN, ant neck: Within the dermis, there is a well-circumscribed aggregate of spindle shaped cells with hints of organization into fascicles and clefts between these fascicles . 3:16 PM CDT DERMATOPATHOLOGY LABORATORY Disclaimer An external and internal positive and negative controls are appropriate for the histochemical, immunohistochemical and immunofluorescence stain(s) in this case (if any), except where stated explicitly. The performance characteristics of the stain(s) cited in this report were developed and its performance characteristic determined by the Dermatopathology Laboratory at [facility], directed by Dr. Violetta Daniel. These tests need not be, and therefore are not, approved by the [place] Food and Drug Administration. The tests are used for clinical purposes. Billing Codes Specimen Charges Stain Charges 91024 1 3:16 PM CDT DERMATOPATHOLOGY LABORATORY Embedded Images 3:16 PM CDT DERMATOPATHOLOGY LABORATORY Pathology/Cytolog y TISSUE SPECIMEN FROM SKIN / Unknown 05/14/2021 05/15/2021 8:04 AM CDT Neo Tang MD LAB - PATHOLOGY/CYTOLOGY ORDER ESTRELLA Final Result DERMATOPATHOLOGY LABORATORY [facility] - Department of Dermatology [address]rd [place] [address], [facility] [phone] documented in this encounter Visit Diagnoses Not on filedocumented in this encounter
--- OUTSIDE RECORDS SUMMARY | 2024-12-06 10:16 | XMS_ITS | Encounter Summary ---
Author Organization [facility] Address [address] [facility] [place] [address] Care Team Providers Care Vacuum Truck Driver Name Role Phone Unavailable Primary Care Provider Unavailabl e Encounter Details Date Type Department Care Team (Late st Contact Info) Description 04/11/2020 Lab Requisition [facility] DermPath Lab [address] [facility], [place] [phone] Neo Tang MD [address] [place] [address] Social History Tobacco Use Types [...] Priority Date/Time Associated Diagnosis Comments DERMATOPATHOLOGY Routine 04/10/2020 12:0 0 AM CDT documented in this encounter Results * DERMATOPATHOLOGY (04/10/2020 12:00 AM CDT) Case Report Dermatopathology Report Case: [id number] Authorizing Provider: Neo Tang MD Collected: 04/10/2020 12:00 AM Ordering Location: [facility] DermPath Lab Received: 04/11/2020 06:52 AM Pathologist: Debra De León MD Specimen: Skin, right lower leg 0 1:18 PM CDT DERMATOPATHOLOGY LABORATORY Final Diagnosis Specimen A. 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 Path # [id number]. 0 1:18 PM CDT DERMATOPATHOLOGY LABORATORY Gross Description Specimen A: Received is one formalin filled container labeled with the patient's name and designated right lower leg. The specimen consists of a shave biopsy measuring 6u9x1hc. Jar 0. 0 1:18 PM CDT DERMATOPATHOLOGY LABORATORY Microscopic Description Specimen A. SKIN, right lower leg: The epidermis shows parakeratosis, full thickness disorderly maturation of keratinocytes, mitoses at different levels, and dyskeratotic cells. 0 1:18 PM CDT DERMATOPATHOLOGY LABORATORY Disclaimer An external and internal positive and negative controls are appropriate for the histochemical, immunohistochemical and immunofluorescence stain(s) in this case (if any), except where stated explicitly. The performance characteristics of the stain(s) cited in this report were developed and its performance characteristic determined by the Dermatopathology Laboratory at [facility], directed by Dr. Violetta Daniel. These tests need not be, and therefore are not, approved by the [place] Food and Drug Administration. The tests are used for clinical purposes. Billing Codes Specimen Charges Stain Charges 84113 1 0 1:18 PM CDT DERMATOPATHOLOGY LABORATORY Embedded Images 0 1:18 PM CDT DERMATOPATHOLOGY LABORATORY Pathology/Cytolog y TISSUE SPECIMEN FROM SKIN / Unknown 04/10/2020 04/11/2020 6:52 AM CDT Neo Tang MD LAB - PATHOLOGY/CYTOLOGY ORDER ESTRELLA Final Result DERMATOPATHOLOGY LABORATORY [facility] - Department of Dermatology [address] [phone] documented in this encounter Visit Diagnoses Not on filedocumented in this encounter
--- OUTSIDE RECORDS SUMMARY | 2024-12-06 10:16 | XMS_ITS | Encounter Summary ---
Author Organization [facility] Address [address] [place] [address] Care Team Providers Care Clerical Warehouse Worker Name Role Phone Neto Schaefer MD Unavailable Goyo Beavers MD Primary Care Provider [phone] Poncho Troy MD Unavailable Yovani Mendoza MD Primary Care Provider [phone] Janee Nath PA-C Primary Care Provider [phone] Encounter Details Date Type Department Care Team (Late st Contact Info) Description 11/23/2018 Abstract [facility] at [address] [address] Janeth Cook MA Social History Tobacco Use Types Packs/Day Years Used Date Smoking Tobacco: Former Cigarettes Q uit: 2010 Smokeless Tobacco: Never Alcohol Use Standard Drinks/Week Comments No 0 (1 standard drink = 0.6 oz pur e alcohol) Sex and Gender Information Value Date Recorded Sex Assigned at Male 08/22/2024 10:32 AM 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 [place] [address] documented as of this encounter Procedures Procedure Name Priority Date/Time Associated Diagnosis Comments PROTIME (OUTSIDE LAB) Routine 11/01/2019 PROTIME (OUTSIDE LAB) Routine 08/29/2019 COMPREHENSIVE METABOLIC PANEL Routine 07/27/2019 HEMOGLOBIN, GLYCOSYLATED Routine 07/27/2019 LIPID PANEL Routine 07/17/2019 PROTIME (OUTSIDE LAB) Routine 05/22/2019 PROTIME (OUTSIDE LAB) Routine 02/14/2019 PROTIME (OUTSIDE LAB) Routine 01/17/2019 PROTIME (OUTSIDE LAB) Routine 11/22/2018 documented in this encounter Results * PROTIME (OUTSIDE LAB) (11/01/2019) PROTIME 31.1 INR 3.3 11/01/2019 us Doc [facility] Abstract LAB-OUTSIDE/ABSTRACTED Final Result * PROTIME (OUTSIDE LAB) (08/29/2019) PROTIME 28.7 INR 3.0 08/29/2019 us Doc [facility] Abstract LAB-OUTSIDE/ABSTRACTED Final Result * HEMOGLOBIN, GLYCOSYLATED (07/27/2019) Pathologist [facility] HGB A1C 6.0 4.8 - 5.6 07/27/2019 us Doc [facility] Abstract LABORATORY Final Result * COMPREHENSIVE METABOLIC PANEL (07/27/2019) [facility] SODIUM S/P/B 141 134 - 144 POTASSIUM S/P/B 4.2 3.5 - 5.2 CO2 24 20 - 29 CHLORIDE S/P/B 101 96 - 106 GLUCOSE 119 65 - 99 mg/dL CALCIUM S/P/B 9.8 8.6 - 10.2 BUN 15 8 - 27 CREATININE S/P/B 1.15 0.7 - 1.3 EGFR AFR. AMER. 74 EGFR NON-AFR. AMER. 64 <=90 ALKALINE PHOSPHATASE S/P/B 44 39 - -117 ALT 29 0 - 44 AST 31 0 - 40 BILIRUBIN TOTAL S/P/B 0.6 0.0 - 1.2 ALBUMIN S/P/B 4.6 3.5 - 5.0 TOTAL PROTEIN S/P/B 6.9 6.0 - 8.5 GLOBULIN 2.3 1.5 - 4.5 07/27/2019 us Doc [facility] Abstract LABORATORY Final Result * LIPID PANEL (07/17/2019) [facility] CHOLESTEROL 190 100 - 199 HDL 35 >39 TRIGLYCERIDES 383 0 - 149 LDL (CALCULATED) 78 0 - 99 07/17/2019 us Doc [facility] Abstract LABORATORY Final Result * PROTIME (OUTSIDE LAB) (05/22/2019) Pathologist [facility] PROTIME 26.6 INR 2.8 05/22/2019 us Doc [facility] Abstract LAB-OUTSIDE/ABSTRACTED Final Result * PROTIME (OUTSIDE LAB) (02/14/2019) Pathologist [facility] PROTIME 20.9 INR 2.1 02/14/2019 us Doc [facility] Abstract LAB-OUTSIDE/ABSTRACTED Final Result * PROTIME (OUTSIDE LAB) (01/17/2019) PROTIME 30.5 INR 3.1 01/17/2019 us Doc [facility] Abstract LAB-OUTSIDE/ABSTRACTED Final Result * PROTIME (OUTSIDE LAB) (11/22/2018) PROTIME 21.4 INR 2.1 11/22/2018 us Doc [facility] Abstract LAB-OUTSIDE/ABSTRACTED Final Result documented in this encounter Visit Diagnoses Not on filedocumented in this encounter Care Teams Clerical Warehouse Worker Relationship Specialty Start Date End Date Goyo Beavers MD [facility]. [address] [address] PCP - General INTERNAL MEDICINE 03/09/16 07/08/22 Yovani Mendoza MD [address] [place] [address] PCP - General FAMILY PRACTICE 07/09/22 08/27/24 Janee Nath PA-C [address] [place] [address] PCP - General 08/28/24 Neto Schaefer MD [facility]. [address] [address] [place] Pharmaceutical Salesperson CARDIOVASCULAR DISEASE 02/21/16 Poncho Troy MD [facility]. [place] [id number] [place] [address] EP Pharmaceutical Salesperson CARDIOVASCULAR DISEASE 03/09/16 documented as of this encounter
== END 2024-12-06 09:30 | disposition home or self-care (01) ==
PROVIDERS: PCP Physician Assistant Medical; Visit Provider Urology
DX: N20.0 Calculus of kidney (principal)
CPT/HCPCS: 74018

== ENCOUNTER 2024-12-14 10:41 | Outpatient (CLI) | payer OTHER, SELFPAY ==
--- NOTE | 2024-12-14 10:49 | ECG_ITS ---
Test Date: 2024-12-14 11:02:50 Measurements Intervals [facility] Rate: 76 P: 0 WI: 0 QRS: -14 QRSD: 97 T: 26 QT: 371 QTc: 420 Interpretive Statements ATRIAL FIBRILLATION ABNORMAL RHYTHM ECG No previous ECG available for comparison Electronically Signed On 12-14-2024 14:11:32 CDT by Stacy Hollis
--- OUTSIDE RECORDS SUMMARY | 2024-12-14 10:55 | XMS_ITS | Encounter Summary ---
Author Organization [facility] Address [address] [facility] [place] [address] Care Team Providers Care Music Writer Name Role Phone Unavailable Primary Care Provider Unavailabl e Encounter Details Date Type Department Care Team (Late st Contact Info) Description 05/15/2021 Lab Requisition [facility] DermPath Lab [address] [facility], [place] [phone] Neo Tang MD [address] [place] [place] [address] Social History Tobacco Use Types [...] AM CDT) Case Report Dermatopathology Report Case: [id number] Authorizing Provider: Neo Tang MD Collected: 05/14/2021 12:00 AM Ordering Location: [facility] DermPath Lab Received: 05/15/2021 08:04 AM Pathologist: Debra De León MD Specimen: Skin, ant neck 3:16 PM CDT DERMATOPATHOLOGY LABORATORY Final Diagnosis Specimen A. 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 Path # [id number]. 3:16 PM CDT DERMATOPATHOLOGY LABORATORY Gross Description Specimen A: Received is one formalin filled container labeled with the patient's name and designated ant neck. The specimen consists of a shave biopsy measuring [id number]. Jar 0. 3:16 PM CDT DERMATOPATHOLOGY LABORATORY [...] characteristic determined by the Dermatopathology Laboratory at [facility], directed by Dr. Violetta Daniel. These tests need not be, and therefore are not, approved by the [place] Food and Drug Administration. The tests are used for clinical purposes. Billing Codes Specimen Charges Stain Charges 97142 1 3:16 PM CDT DERMATOPATHOLOGY LABORATORY Embedded Images 3:16 PM CDT DERMATOPATHOLOGY LABORATORY Pathology/Cytolog y TISSUE SPECIMEN FROM SKIN / Unknown 05/14/2021 05/15/2021 8:04 AM CDT Neo Tang MD LAB - PATHOLOGY/CYTOLOGY ORDER ESTRELLA Final Result DERMATOPATHOLOGY LABORATORY [facility] - Department of Dermatology [address] [place] [address], [facility] [phone] documented in this encounter Visit Diagnoses Not on filedocumented in this encounter
--- OUTSIDE RECORDS SUMMARY | 2024-12-14 10:55 | XMS_ITS | Encounter Summary ---
Author Organization [facility] Address [address] [facility] [place] [address] Care Team Providers Care Bakery Supervisor Name Role Phone Unavailable Primary Care Provider Unavailabl e Encounter Details Date Type Department Care Team (Late st Contact Info) Description 04/11/2020 Lab Requisition [facility] D[facility] Lab [address] [facility] [place] [id number] Neo Tang MD [address] [facility] [place] [address] Social History Tobacco Use Types [...] AM CDT) Case Report Dermatopathology Report Case: [id number] Authorizing Provider: Neo Tang MD Collected: 04/10/2020 12:00 AM Ordering Location: [facility] DermPath Lab Received: 04/11/2020 06:52 AM Pathologist: Debra De León MD Specimen: Skin, right lower leg 0 1:18 PM CDT DERMATOPATHOLOGY LABORATORY Final Diagnosis Specimen A. 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 Path # [id number]. 0 1:18 PM CDT DERMATOPATHOLOGY LABORATORY Gross Description Specimen A: Received is one formalin filled container labeled with the patient's name and designated right lower leg. The specimen consists of a shave biopsy measuring [id number]. Jar 0. 0 1:18 PM CDT DERMATOPATHOLOGY [...] characteristic determined by the Dermatopathology Laboratory at [facility], directed by Dr. Violetta Daniel. These tests need not be, and therefore are not, approved by the [place] Food and Drug Administration. The tests are used for clinical purposes. Billing Codes Specimen Charges Stain Charges 66790 1 0 1:18 PM CDT DERMATOPATHOLOGY LABORATORY Embedded Images 0 1:18 PM CDT DERMATOPATHOLOGY LABORATORY Pathology/Cytolog y TISSUE SPECIMEN FROM SKIN / Unknown 04/10/2020 04/11/2020 6:52 AM CDT Neo Tang MD LAB - PATHOLOGY/CYTOLOGY ORDER ESTRELLA Final Result DERMATOPATHOLOGY LABORATORY [facility] - Department of Dermatology [address], [address] [phone] documented in this encounter Visit Diagnoses Not on filedocumented in this encounter
--- OUTSIDE RECORDS SUMMARY | 2024-12-14 10:55 | XMS_ITS | Clinical Summary ---
Author Organization [facility] Address [address] [place] [address] Care Team Providers Care Linoleum Installer Name Role Phone Neto Schaefer MD Unavailable Poncho Troy MD Unavailable Jose Kilgore PA-C Primary Care Provider [phone] Allergies No known active allergies Medications aspirin EC (ASPIRIN EC) 81 MG tablet Take 1 tablet (81 mg total) by mouth daily. 3 Active DAILY MULTIPLE VITAMINS Tab Take 1 tablet by mouth daily. 3 Active metFORMIN 500 MG tablet Take 2 tablets (1,000 mg total) by mouth 2 (two) times daily. 6 Active Cholecalciferol 50 MCG (2000 UT) Tab Take 1 tablet by mouth daily. 4 Active gabapentin 300 MG capsule Take 1 capsule (300 mg total) by mouth 3 (three) times daily. 6 Active Cyanocobalamin (VITAMIN B-12) 2000 MCG Tab Take 100 mcg by mouth daily. 6 Active Revere-3 Fatty Acids (OMEGA-3 FISH OIL) 1200 MG Cap Take 1,200 mg by mouth daily. 6 Active HYDROCHLOROTHIAZ MICHAEL 12.5 MG tablet TAKE 1 TABLET BY MOUTH DAILY 90 tablet 1 9 Active Cvek-Ytyip-WXQ-B oswellia-Vit D (GLUCOSAMINE CHONDROITIN + D3 OR) Take 2 tablets by mouth daily. Active clindamycin 300 MG capsule For dentist appt.'s due to bilat hip replacements 2 Active fenofibrate 160 MG tablet Take 1 tablet (160 mg total) by mouth daily. 90 tablet 3 3 Active amLODIPine (NORVASC) 10 MG tablet Take 1 tablet (10 mg total) by mouth daily. 90 tablet 3 3 Active FARXIGA 10 MG tablet Take 1 tablet (10 mg total) by mouth daily. 5 Active lisinopril (PRINIVIL) 20 MG tabletIndication s:Essential hypertension TAKE 1 TABLET DAILY 90 tablet 1 5 Active warfarin (COUMADIN) 5 MG tabletIndication s:Paroxysmal atrial fibrillation ([facility] HHS/HCC) NEW DOSE: Take 1/2 tablet (2.5mg total) by mouth on Tuesdays, then take 1 tablet (5mg total) all the rest. 90 tablet 5 Active metoprolol tartrate (LOPRESSOR) 50 MG tabletIndication s:Essential hypertension Take 1 tablet (50 mg total) by mouth 2 (two) times daily. Take with 25mg tablet to equal 75mg twice a day 180 tablet 1 5 Active metoprolol tartrate (LOPRESSOR) 25 MG tabletIndication s:Essential hypertension TAKE 1 TABLET TWICE A DAY. TAKE WITH 50 MG TO EQUAL 75 MG 180 tablet 1 5 Active Active Problems Problem Noted Date Diagnosed Date Diverticulosis 01/15/2022 Rectal polyp 01/15/2022 Internal hemorrhoid 01/15/2022 Skin tags, anus or rectum 01/15/2022 Essential hypertension 09/09/2017 PVC (premature ventricular contraction) 09/03/19 17 Dyslipidemia 09/03/2016 Coronary artery calcification seen on CT scan Paroxysmal atrial fibrillation ([facility]/HCC HHS/HCC) Obstructive sleep apnea chandra stephenie with continuous positive airway pressure (CPAP) Diabetes mellitus ([facility] HHS/HCC) Resolved Problems Problem Noted Date Diagnosed Date Resolved Date Coronary artery disease invo lving [place] coronary artery of [place] heart without angina pectoris 09/03/2016 09/07/2017 S/P ablation of atrial fibrillation 04/03/2016 09/07/2017 PAF (paroxysmal atrial fibri llation) ([facility]) 01/22/2016 09/07/2017 CAD (coronary artery disease) 09/07/2017 Encounters Date Type Department Care Team Description 12/01/2024 11:05 AM CDT - 12/01/2024 11:59 PM CDT Hospital Encounter [address] [address] Neto Schaefer MD Discharge Disposition: Home or Self Care (Routine Discharge) 12/01/2024 Anti-Coag Telephone Call [facility], [facility] [address] [place] [address] Vibha Anna, RN Anticoagulation (protime) 12/01/2024 Travel 11/10/2024 3:09 PM CDT - 11/10/2024 11:59 PM CDT Hospital Encounter [facility] [address] [place] [address] Jose Kilgore PA-C Discharge Disposition: Home or Self Care (Routine Discharge) 11/10/2024 Travel 11/02/2024 8:35 AM CDT - 11/02/2024 11:59 PM CDT Hospital Encounter [address] [address] Neto Schaefer MD Discharge Disposition: Home or Self Care (Routine Discharge) 11/02/2024 Anti-Coag Telephone Call [facility], [facility] [address] [place] [address] Vibha Anna RN Anticoagulation (protime) 11/02/2024 Travel 10/13/2024 11:50 AM DIRECTOR OF DEVELOPMENT - 10/13/2024 11:59 PM DIRECTOR OF DEVELOPMENT Hospital Encounter [facility] [address] [place] [address] Neto Schaefer MD Discharge Disposition: Home or Self Care (Routine Discharge) 10/13/2024 Anti-Coag Telephone Call [facility], [facility] [address] [place] [address] Vibha Anna RN Anticoagulation (protime) 10/13/2024 Travel 09/28/2024 8:55 AM DIRECTOR OF DEVELOPMENT - 09/28/2024 11:59 PM DIRECTOR OF DEVELOPMENT Hospital Encounter [facility] [address] [place] [address] Neto Schaefer MD Discharge Disposition: Home or Self Care (Routine Discharge) 09/28/2024 Anti-Coag Telephone Call [facility], [facility] [address] [place] [address] Vibha Anna RN Anticoagulation (protime) 09/28/2024 Travel from Last 3 Months Immunizations Immunization Administration Dates Next Due PFIZER COVID-19 (ORIGINAL FORMULATION, PURPLE CAP) mRNA, LNP-S, PF, 30 MCG/0.3 ML DOSE 11/26/2021,06/28/2021,08/16/2020,2019 Family History Medical History Relation Comments No premature coronary artery disease. Other Relation Status Comments Other Social History Tobacco Use Types Packs/Day Years Used Date Smoking Tobacco: Former Cigarettes Q uit: 2011 Smokeless Tobacco: Never Tobacco Cessation:Counseling Given: Not Answered Alcohol Use Standard Drinks/Week Comments No 0 (1 standard drink = 0.6 oz pur e alcohol) Sex and Gender Information Value Date Recorded Sex Assigned at Male 08/22/2024 10:32 AM DIRECTOR OF DEVELOPMENT Legal Sex Male 11:40 PM CDT Gender Identity Not on file Sexual Orientation Not on file Occupation Industry Job Start Date Job End Date Worked in a [employer] Not on file Not on file Not on file Last Filed Vital Signs Vital Sign Reading Time Taken Comments Blood Pressure 130/76 08/31/2024 2:46 PM DIRECTOR OF DEVELOPMENT Pulse 85 08/31/2024 2:46 PM DIRECTOR OF DEVELOPMENT Temperature 36.7 C (98.1 F) 02/10/2022 3:31 PM CDT Respiratory Rate 16 01/15/2022 9:10 AM CDT Oxygen Saturation 98% 08/31/2024 2:46 PM DIRECTOR OF DEVELOPMENT Inhaled Oxygen Concentration - - Weight 117.9 kg (260 lb) 08/31/2024 2:46 PM DIRECTOR OF DEVELOPMENT Height 188 cm (6' 2 ) 08/31/2024 2:46 PM DIRECTOR OF DEVELOPMENT Body Mass Index 33.38 08/31/2024 2:46 PM DIRECTOR OF DEVELOPMENT Plan of Treatment Upcoming Encounters Date Type Department Care Team (Late st Contact Info) Description 03/08/2025 11:00 AM CDT Office Visit [facility] [address] [place] [address] Michelle Knox, ANP- [address] [place] [place] [address] Health Maintenance Due Date Last Done Comments [...] 12/01/2024 11:09 AM CDT Paroxysmal atrial fibrillation (CMS/HCC HHS/HCC) long-term (current) use of anticoagulants CT ABD+PEL WO CON Routine 11/10/2024 4:1 4 PM CDT Hematuria, unspecified PROTHROMBIN TIME, FINGERSTICK Routine 11/02/2024 8:41 AM CDT Paroxysmal atrial fibrillation (CMS/HCC HHS/HCC) long-term (current) use of anticoagulants PROTHROMBIN TIME, FINGERSTICK Routine 10/13/2024 11:51 AM DIRECTOR OF DEVELOPMENT Paroxysmal atrial fibrillation (CMS/HCC HHS/HCC) long-term (current) use of anticoagulants PROTHROMBIN TIME, FINGERSTICK Routine 09/28/2024 9:01 AM DIRECTOR OF DEVELOPMENT Paroxysmal atrial fibrillation (CMS/HCC HHS/HCC) long-term (current) use of anticoagulants LIPID PANEL Routine 07/20/2024 9:06 AM DIRECTOR OF DEVELOPMENT Hyperlipemia Type 2 diabetes mellitus without complications (CMS/HCC HHS/HCC) Hypertension Encounter for screening for malignant neoplasm of prostate HEMOGLOBIN, GLYCOSYLATED Routine 07/20/2024 9:06 AM DIRECTOR OF DEVELOPMENT Hyperlipemia Type 2 diabetes mellitus without complications [...] - 14.5 SEC 12/01/2024 11:11 AM CDT [facility] INR WHOLE BLOOD 2.5(H) 0.9 - 1.1 11:11 AM CDT [facility] Comment: Recommended INR Therapeutic Goals: [...] us Neto Schaefer MD LABORATORY Final Result [facility] [address] [place] [address], * CT ABD+PEL WO CON (11/10/2024 4:14 PM CDT) Anatomical Region Laterality Modality Abdomen Computed Tomogra phy 11/12/2024 12:2 0 PM CDT Addenda Addendum by Nick Nathan MD on 11/12/2024 12:47 PM CDT [facility] [address] [facility] [place] [address] Addendum: The renal cyst described in impression [...] 12:20 PM Narrative 11/12/2024 12:32 PM CDT [facility] [address] [address] [place] [id number] Examination: CT abdomen and pelvis without IV [...] Procedure Note Nick Nathan MD - 11/12/2024 [facility] [address] [place] [address] Examination: CT abdomen and pelvis without IV [...] * (ABNORMAL) HEMOGLOBIN, GLYCOSYLATED (07/20/2024 9:06 AM DIRECTOR OF DEVELOPMENT) HGB A1C 5.9(H) <5.7 % 07/20/2024 4:58 PM DIRECTOR OF DEVELOPMENT [facility] Comment: ADA GUIDELINES 2010 5.7 TO 6.4% INCREASED RISK OF DIABETES > OR = 6.5% CONSISTENT WITH DIABETES ESTIMATED AVG GLUCOSE 123 mg/dL 07/20/2024 4:58 PM DIRECTOR OF DEVELOPMENT [facility] 07/20/2024 9:06 AM DIRECTOR OF DEVELOPMENT us Yovani Mendoza MD LABORATORY Final Res ult [facility] [address] [place] [address], * (ABNORMAL) LIPID PANEL (07/20/2024 9:06 AM DIRECTOR OF DEVELOPMENT) CHOLESTEROL 158 <200 MG/DL 07/20/2024 11:21 AM DIRECTOR OF DEVELOPMENT [facility] TRIGLYCERIDES 223(H) <150 MG/DL 07/20/2024 11:21 AM [facility] HDL 39(L) >40.0 MG/DL 07/20/2024 11:21 AM [facility] LDL (CALCULATED) 74 <100 MG/DL 07/20/2024 11:21 AM DIRECTOR OF DEVELOPMENT [facility] NON HDL CHOLESTEROL 119 <130 MG/DL 07/20/2024 11:21 AM [facility] Comment: NOTE: WHEN THE TRIGLYCERIDES ARE >200 mg/dL, NON HDL C IS A SECONDARY TARGET OF THERAPY, WITH A GOAL 30 mg/dL HIGHER THAN THE IDENTIFIED LDL C GOAL. CHOL/HDL RATIO 4.1 0.0 - 4.5 07/20/2024 11:21 AM [facility] VLDL CALCULATION 45 5 - 55 MG/DL 07/20/2024 11:21 AM [facility] LIPID INTERPRETATION 07/20/2024 11:21 AM [facility] Comment: NIH CONCENSUS REPORT RECOMMENDATIONS: ADULT CHILD LOW RISK: CHOLESTEROL <200 <170 TRIGLYCERIDE <150 --- HDL >=60 --- LDL <100 <110 BORDERLINE: CHOLESTEROL 200-239 170-199 TRIGLYCERIDE 150-199 --- HDL 40-59 --- LDL 100-159 110-129 HIGH RISK: CHOLESTEROL >=240 >=200 TRIGLYCERIDE >=200 --- HDL <40 --- LDL >=160 >=130 07/20/2024 9:06 AM DIRECTOR OF DEVELOPMENT Yovani Mendoza MD LABORATORY Final Res ult [facility] [address] [place] [address], [place] [phone] from Last 3 Months or Most Recently Relevant to Health Maintenance Insurance [employer] Advance Directives Documents on File Type Date Recorded Patient Digital Archivist Expl anation Advance Directives and Living Will 08/04/2019 4:12 PM 10/23/18 POWER OF EXHAUST EQUIPMENT OPERATOR Advance Directives and Living Will 09/19/2018 12:00 AM POWER OF EXHAUST EQUIPMENT OPERATOR FO R HEALTH CARE Advance Directives and Living Will 08/03/2018 12:00 AM POWER OF EXHAUST EQUIPMENT OPERATOR FO R HEALTH CARE Advance Directives and Living Will 06/21/2018 12:00 AM POWER OF EXHAUST EQUIPMENT OPERATOR FO R HEALTH CARE Advance Directives and Living Will 06/21/2018 12:00 AM POWER OF EXHAUST EQUIPMENT OPERATOR FO R HEALTH CARE Advance Directives and Living Will 04/08/2018 12:00 AM POWER OF EXHAUST EQUIPMENT OPERATOR FO R HEALTH CARE Advance Directives and Living Will 04/08/2018 12:00 AM POWER OF EXHAUST EQUIPMENT OPERATOR FO R HEALTH CARE Advance Directives and Living Will 03/22/2018 12:00 AM POWER OF EXHAUST EQUIPMENT OPERATOR FO R HEALTH CARE Advance Directives and Living Will 03/22/2018 12:00 AM POWER OF EXHAUST EQUIPMENT OPERATOR FO R HEALTH CARE Advance Directives and Living Will 02/01/2018 12:00 AM POWER OF EXHAUST EQUIPMENT OPERATOR FO R HEALTH CARE Advance Directives and Living Will 02/01/2018 12:00 AM POWER OF EXHAUST EQUIPMENT OPERATOR FO R HEALTH CARE Advance Directives and Living Will 12/14/2017 12:00 AM POWER OF EXHAUST EQUIPMENT OPERATOR FO R HEALTH CARE Advance Directives and Living Will 12/14/2017 12:00 AM POWER OF EXHAUST EQUIPMENT OPERATOR FO R HEALTH CARE Advance Directives and Living Will 09/13/2017 12:00 AM POWER OF EXHAUST EQUIPMENT OPERATOR FO R HEALTH CARE Advance Directives and Living Will 09/13/2017 12:00 AM POWER OF EXHAUST EQUIPMENT OPERATOR FO R HEALTH CARE Advance Directives and Living Will 08/03/2017 12:00 AM POWER OF EXHAUST EQUIPMENT OPERATOR FO R HEALTH CARE Advance Directives and Living Will 08/03/2017 12:00 AM POWER OF EXHAUST EQUIPMENT OPERATOR FO R HEALTH CARE Advance Directives and Living Will 06/22/2017 12:00 AM POWER OF EXHAUST EQUIPMENT OPERATOR FO R HEALTH CARE Advance Directives and Living Will 06/22/2017 12:00 AM POWER OF EXHAUST EQUIPMENT OPERATOR FO R HEALTH CARE Advance Directives and Living Will 03/23/2017 12:00 AM POWER OF EXHAUST EQUIPMENT OPERATOR FO R HEALTH CARE Advance Directives and Living Will 03/23/2017 12:00 AM POWER OF EXHAUST EQUIPMENT OPERATOR FO R HEALTH CARE Advance Directives and Living Will 02/02/2017 12:00 AM POWER OF EXHAUST EQUIPMENT OPERATOR FO R HEALTH CARE Advance Directives and Living Will 02/02/2017 12:00 AM POWER OF EXHAUST EQUIPMENT OPERATOR FO R HEALTH CARE Advance Directives and Living Will 12/14/2016 12:00 AM POWER OF EXHAUST EQUIPMENT OPERATOR FO R HEALTH CARE Advance Directives and Living Will 12/14/2016 12:00 AM POWER OF EXHAUST EQUIPMENT OPERATOR FO R HEALTH CARE Advance Directives and Living Will 09/08/2016 12:00 AM POWER OF EXHAUST EQUIPMENT OPERATOR FO R HEALTH CARE Advance Directives and Living Will 09/08/2016 12:00 AM POWER OF EXHAUST EQUIPMENT OPERATOR FO R HEALTH CARE Advance Directives and Living Will 07/27/2016 12:00 AM POWER OF EXHAUST EQUIPMENT OPERATOR FO R HEALTH CARE Advance Directives and Living Will 07/27/2016 12:00 AM POWER OF EXHAUST EQUIPMENT OPERATOR FO R HEALTH CARE Advance Directives and Living Will 07/27/2016 12:00 AM POWER OF EXHAUST EQUIPMENT OPERATOR FO R HEALTH CARE Advance Directives and Living Will 07/27/2016 12:00 AM POWER OF EXHAUST EQUIPMENT OPERATOR FO R HEALTH CARE Advance Directives and Living Will 06/15/2016 12:00 AM POWER OF EXHAUST EQUIPMENT OPERATOR FO R HEALTH CARE Advance Directives and Living Will 06/15/2016 12:00 AM POWER OF EXHAUST EQUIPMENT OPERATOR FO R HEALTH CARE Advance Directives and Living Will 06/05/2016 12:00 AM POWER OF EXHAUST EQUIPMENT OPERATOR FO R HEALTH CARE Advance Directives and Living Will 06/05/2016 12:00 AM POWER OF EXHAUST EQUIPMENT OPERATOR FO R HEALTH CARE Care Teams Linoleum Installer Relationship Specialty Start Date End Date Jose Kilgore PA-C [address] [place], [place] [address] [place] [address] PCP - General 08/28/24 Neto Schaefer MD [id number] [place] [address] [place] Revenue Specialist CARDIOVASCULAR DISEASE 02/21/16 Poncho Troy MD [facility]. [facility] [address] [place], [place] [id number] Revenue Specialist CARDIOVASCULAR DISEASE 03/09/16
--- OUTSIDE RECORDS SUMMARY | 2024-12-14 10:55 | XMS_ITS | Encounter Summary ---
Author Organization [facility] Address [address] [place] [address] Care Team Providers Care Milking Worker Name Role Phone Neto Schaefer MD Unavailable Goyo Beavers MD Primary Care Provider [phone] Poncho Troy MD Unavailable Bakari Olson MD Primary Care Provider [phone] Yovani Mendoza MD Primary Care Provider [phone] Janee Nath PA-C Primary Care Provider + [phone] Encounter Details Date Type Department Care Team (Late st Contact Info) Description 02/21/2016 Abstract [facility] AT [address] [address] Janeth Cook MA Social History Tobacco Use Types Packs/Day Years Used Date Smoking Tobacco: Former Sex and Gender Information Value Date Recorded Sex Assigned at Male 08/22/2024 10:32 AM DIRECTOR AUTOMOTIVE Legal Sex Male 11:40 PM CDT Gender Identity Not on file Sexual Orientation Not on file documented as of this encounter Plan of Treatment Upcoming Encounters Date Type Department Care Team (Late st Contact Info) Description 03/08/2025 11:00 AM CDT Office Visit [facility] [phone] Michelle Knox, ANP-BC Three [facility]. [facility] [address] [place], [place] [phone] documented as of this encounter Procedures Procedure [...] Result * PROTIME (OUTSIDE LAB) (10/19/2016) Pathologist [facility] PROTIME 29.4 INR 2.9 10/19/2016 us Doc [facility] Abstract LAB-OUTSIDE/ABSTRACTED Final Result * PROTIME (OUTSIDE LAB) (09/14/2016) Pathologist [facility] PROTIME 23.6 INR 2.3 09/14/2016 us Doc [facility] Abstract LAB-OUTSIDE/ABSTRACTED Final Result * LIPID PANEL (09/04/2016) Pathologist [facility] CHOLESTEROL 209 HDL 35 TRIGLYCERIDES 503 09/04/2016 us Doc [facility] Abstract LABORATORY Final Result * BASIC METABOLIC PANEL (09/04/2016) Pathologist [facility] SODIUM S/P/B 141 POTASSIUM S/P/B 4.6 CO2 22 CHLORIDE S/P/B 99 GLUCOSE 129 CALCIUM S/P/B 10 BUN 18 CREATININE S/P/B 1.22 EGFR AFR. AMER. 7- EGFR NON-AFR. AMER. 61 09/04/2016 us Doc [facility] LABORATORY Edited Resul t - Final * CBC (OUTSIDE LAB) (09/04/2016) Pathologist [facility] WBC 7.0 HGB 16.0 HCT 46.8 PLT [...] on filedocumented in this encounter Care Teams Milking Worker Relationship Specialty Start Date End Date Goyo Beavers MD [facility] [address] [place] [address] PCP - General INTERNAL MEDICINE 03/09/16 07/08/22 [place] [address] [address] [facility] [address] [place] [address] PCP - General 04/19/14 03/08/16 Yovani Mendoza MD [facility] [place] [address] PCP - General FAMILY PRACTICE 07/09/22 08/27/24 Janee Nath PA-C [address] [place] [address] [address] [place] [address] PCP - General 08/28/24 Neto Schaefer MD [address] [place] [address] [place] [address] [place] Water Purifier Operator CARDIOVASCULAR DISEASE 02/21/16 Poncho Troy MD [address] [place] [address] [place], [place] [phone] [place] Water Purifier Operator CARDIOVASCULAR DISEASE 03/09/16 documented as of this encounter
--- OUTSIDE RECORDS SUMMARY | 2024-12-14 10:55 | XMS_ITS | Encounter Summary ---
Author Organization [facility] Address [address] [place] [address] Care Team Providers Care Internet Application Developer Name Role Phone Neto Schaefer MD Unavailable Goyo Beavers MD Primary Care Provider [phone] Poncho Troy MD Unavailable Yovani Mendoza MD Primary Care Provider [phone] Janee Nath PA-C Primary Care Provider [phone] Encounter Details Date Type Department Care Team (Late st Contact Info) Description 04/22/2018 Abstract [facility] at [address] [address] Janeth Cook MA Social History Tobacco Use Types Packs/Day Years Used Date Smoking Tobacco: Former Cigarettes Q uit: 2010 Smokeless Tobacco: Never Alcohol Use Standard Drinks/Week Comments No 0 (1 standard drink = 0.6 oz pur e alcohol) Sex and Gender Information Value Date Recorded Sex Assigned at Male 08/22/2024 10:32 AM SPINNERET PERSON Legal Sex Male 11:40 PM CDT Gender Identity Not on file Sexual Orientation Not on file 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 [place] [address] [place] [address] documented as of this encounter Procedures Procedure [...] on filedocumented in this encounter Care Teams Internet Application Developer Relationship Specialty Start Date End Date Goyo Beavers MD [address] [address] PCP - General INTERNAL MEDICINE 03/09/16 07/08/22 Yovani Mendoza MD [address] [place] [phone] PCP - General FAMILY PRACTICE 07/09/22 08/27/24 Janee Nath PA-C [address] [place] [phone] PCP - General 08/28/24 [facility] [address] [id number] [place] Department Clinician CARDIOVASCULAR DISEASE 02/21/16 [facility] [address] [id number] [place] Department Clinician CARDIOVASCULAR DISEASE 03/09/16 documented as of this encounter
--- OUTSIDE RECORDS SUMMARY | 2024-12-14 10:55 | XMS_ITS | Encounter Summary ---
Author Organization [facility] Address [address] [place] [address] Care Team Providers Care Form Raiser Name Role Phone Unavailable Primary Care Provider Unavailabl e Encounter Details Date Type Department Care Team (Late st Contact Info) Description 12/07/2024 Lab Requisition [facility] - DermPath Lab [address] [place] [phone] Pineda Chavez MD [facility] DERMATOLOGY [address] [place] [phone] Neoplasm of uncertain behavior of skin Social History Tobacco Use Types Packs/Day Years [...] Priority Date/Time Associated Diagnosis Comments DERMATOPATHOLOGY Routine 12/07/2024 12:0 0 AM CDT Neoplasm of uncertain behavior of skin documented in this encounter Results * DERMATOPATHOLOGY (12/07/2024 12:00 AM CDT) Case Report Dermatopathology Report Case: [id number] Authorizing Provider: Pineda Chavez MD Collected: 12/07/2024 12:00 AM Ordering Location: [facility] Physician [facility] - Received: 12/11/2024 11:32 AM DermPath Lab Pathologist: Debra De León MD Specimen: Skin, left scalp 12:55 PM CDT DERMATOPATHOLOGY LABORATORY Final Diagnosis Specimen A. 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 The specimen consists of a shave biopsy measuring 02d28e2 mm. Jar 0. 12:55 PM CDT DERMATOPATHOLOGY LABORATORY Microscopic Description Specimen A. SKIN, left scalp: The epidermis shows parakeratosis, full thickness disorderly maturation of keratinocytes, mitoses at different levels, and dyskeratotic cells. The lesion extends to the base of the biopsy. COMMENT: An invasive squamous cell carcinoma cannot be ruled out. 12:55 PM CDT DERMATOPATHOLOGY LABORATORY Disclaimer An external and internal positive and negative controls are appropriate for the histochemical, immunohistochemical and immunofluorescence stain(s) in this case (if any), except where stated explicitly. The performance characteristics of the stain(s) cited in this report were developed and its performance characteristic determined by the Dermatopathology Laboratory at [facility], directed by Dr. Violetta Daniel. These tests need not be, and therefore are not, approved by the [place] Food and Drug Administration. The tests are used for clinical purposes. Billing Codes Specimen Charges Stain Charges 63484 1 12:55 PM CDT DERMATOPATHOLOGY LABORATORY Embedded Images 12:55 PM CDT DERMATOPATHOLOGY LABORATORY Pathology/Cytolog y TISSUE SPECIMEN FROM SKIN / Unknown 12/07/2024 12/11/2024 11:32 AM CDT us Pineda Chavez MD LAB - PATHOLOGY/CYTOLOGY YAJAIRA NEGRON Final Result DERMATOPATHOLOGY LABORATORY [facility] - Department of Dermatology [address], [address] [phone] documented in this encounter Visit Diagnoses Diagnosis Neoplasm of uncertain behavior of skin documented in this encounter
--- OUTSIDE RECORDS SUMMARY | 2024-12-14 10:55 | XMS_ITS | Encounter Summary ---
Author Organization [facility] Address [address] [place] [address] Care Team Providers Care High Rigger Name Role Phone Neto Schaefer MD Unavailable Goyo Beavers MD Primary Care Provider [phone] Poncho Troy MD Unavailable Yovani Mendoza MD Primary Care Provider + [phone] Janee Nath-C Primary Care Provider [phone] Encounter Details Date Type Department Care Team (Late st Contact Info) Description 09/03/2021 MyChart Message [facility] [address] [place] [phone] Michelle Knox, ANP-BC [facility]. 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 No / Unsure 08/22/2021 9:15 AM SOCIAL WORKER DELINQUENCY PREVENTION documented as of this encounter Plan of Treatment Upcoming Encounters Date Type Department Care Team (Late st Contact Info) Description 03/08/2025 11:00 AM CDT Office Visit [facility] [address] [place] [phone] Michelle Knox, ANP-BC [address] [address] documented as of this encounter Visit Diagnoses Not on filedocumented in this encounter Care Teams High Rigger Relationship Specialty Start Date End Date Goyo Beavers MD [address] [address] PCP - General INTERNAL MEDICINE 03/09/16 07/08/22 Yovani Mendoza MD [address] [place] [address] PCP - General FAMILY PRACTICE 07/09/22 08/27/24 Janee Nath PA-C [address] [place] [address] PCP - General 08/28/24 Neto Schaefer MD [facility] [address] [place], [place] [address] Will Journalism Professor CARDIOVASCULAR DISEASE 02/21/16 Poncho Troy MD [facility]. [address] [address] EP Journalism Professor CARDIOVASCULAR DISEASE 03/09/16 documented as of this encounter
--- OUTSIDE RECORDS SUMMARY | 2024-12-14 10:55 | XMS_ITS | Encounter Summary ---
Author Organization [facility] Address [address] [facility] [place] [address] Care Team Providers Care Customer Marketing Assistant Name Role Phone Unavailable Primary Care Provider Unavailabl e Encounter Details Date Type Department Care Team (Late st Contact Info) Description 08/30/2020 Lab Requisition [facility] DermPath Lab [address] [facility] [place] [phone] Neo Tang MD [address] [facility] [place] [address] Social History Tobacco Use Types [...] Diagnosis Comments DERMATOPATHOLOGY Routine 08/29/2020 3:27 AM SENIOR PRINCIPAL documented in this encounter Results * DERMATOPATHOLOGY (08/29/2020 3:27 AM SENIOR PRINCIPAL) Case Report Dermatopathology Report Case: [id number] Authorizing Provider: Neo Tang MD Collected: 08/29/2020 03:27 AM Ordering Location: [facility] DermPath Lab Received: 08/30/2020 07:26 AM Pathologist: Constanza Castro MD Specimens: A) - Skin, frontal scalp B) - Skin, crown 1:20 PM SENIOR PRINCIPAL DERMATOPATHOLOGY LABORATORY Final Diagnosis Specimen A. SKIN, frontal scalp: HYPERPLASTIC (HYPERTROPHIC) ACTINIC KERATOSIS, LICHENOID (L57.0)= OVERLYING CUTANEOUS HORN (L85.8) Specimen B. SKIN, crown: HYPERPLASTIC (HYPERTROPHIC) ACTINIC KERATOSIS, LICHENOID (L57.0) OVERLYING CUTANEOUS HORN (L85.8) 1:20 PM [facility] DERMATOPATHOLOGY LABORATORY Clinical History A: SCCA vs AK. Path# [id number]. B: SCCA vs AK. Path# [id number]. 1:20 PM [facility] DERMATOPATHOLOGY LABORATORY Gross Description Specimen A: Received is one formalin filled container labeled with the patient's name and designated frontal scalp. The specimen consists of a shave biopsy measuring 22b45g6de. Jar 0+. Specimen B: Received is one formalin filled container labeled with the patient's name and designated crown. The specimen consists of a shave biopsy measuring 88l47g9xv, bisected. Jar 0+. 1:20 PM [facility] DERMATOPATHOLOGY LABORATORY Microscopic Description Specimen A. SKIN, [...] column of marked compact hyperkeratosis. 1:20 PM [facility] DERMATOPATHOLOGY LABORATORY Disclaimer An external and internal positive and negative controls are appropriate for the histochemical, immunohistochemical and immunofluorescence stain(s) in this case (if any), except where stated explicitly. The performance characteristics of the stain(s) cited in this report were developed and its performance characteristic determined by the Dermatopathology Laboratory at [facility], directed by Dr. Violetta Daniel. These tests need not be, and therefore are not, approved by the [place] Food and Drug Administration. The tests are used for clinical purposes. Billing Codes Specimen Charges Stain Charges 73837 02409 1 1 1 1:20 PM [facility] DERMATOPATHOLOGY LABORATORY Embedded Images 1:20 PM [facility] DERMATOPATHOLOGY LABORATORY Pathology/Cytology TISSUE SPECIMEN FROM SKIN / Unknown 08/29/2020 3:27 AM SENIOR PRINCIPAL 08/30/2020 7:26 AM SENIOR PRINCIPAL Miscellaneous samples (specimen) TISSUE SPECIMEN FROM SKIN / Unknown 08/29/2020 3:27 AM SENIOR PRINCIPAL 08/30/2020 7:26 AM SENIOR PRINCIPAL us Neo Tang MD LAB - PATHOLOGY/CYTOLOGY ORDER ESTRELLA Final Result DERMATOPATHOLOGY LABORATORY [facility] - Department of Dermatology [facility] Specialized Medicine [address] [place] [address], [address] [phone] documented in this encounter Visit Diagnoses Not on filedocumented in this encounter
--- OUTSIDE RECORDS SUMMARY | 2024-12-14 10:55 | XMS_ITS | Encounter Summary ---
Author Organization [facility] Address [address] [place] [address] Care Team Providers Care Non Morse Intercept Technician Name Role Phone Neto Schaefer MD Unavailable Goyo Beavers MD Primary Care Provider [phone] Poncho Troy MD Unavailable Yovani Mendoza MD Primary Care Provider [phone] Janee Nath PA-C Primary Care Provider [phone] Encounter Details Date Type Department Care Team (Late st Contact Info) Description 11/23/2018 Abstract [facility] at [address] [address] Janeth Cook MA Social History Tobacco Use Types Packs/Day Years Used Date Smoking Tobacco: Former Cigarettes Q uit: 2010 Smokeless Tobacco: Never Alcohol Use Standard Drinks/Week Comments No 0 (1 standard drink = 0.6 oz pur e alcohol) Sex and Gender Information Value Date Recorded Sex Assigned at Male 08/22/2024 10:32 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 [place] [address] [place] [address] documented as of this encounter Procedures Procedure [...] Final Result * HEMOGLOBIN, GLYCOSYLATED (07/27/2019) Pathologist [facility] HGB A1C 6.0 4.8 - 5.6 07/27/2019 us Doc [facility] Abstract LABORATORY Final Result * COMPREHENSIVE METABOLIC PANEL (07/27/2019) [facility] SODIUM S/P/B 141 134 - 144 POTASSIUM [...] LABORATORY Final Result * LIPID PANEL (07/17/2019) [facility] CHOLESTEROL 190 100 - 199 HDL 35 >39 TRIGLYCERIDES 383 0 - 149 LDL (CALCULATED) 78 0 - 99 07/17/2019 us Doc [facility] Abstract LABORATORY Final Result * PROTIME (OUTSIDE LAB) (05/22/2019) Pathologist [facility] PROTIME 26.6 INR 2.8 05/22/2019 us Doc [facility] Abstract LAB-OUTSIDE/ABSTRACTED Final Result * PROTIME (OUTSIDE LAB) (02/14/2019) Pathologist [facility] PROTIME 20.9 INR 2.1 02/14/2019 us Doc [facility] Abstract LAB-OUTSIDE/ABSTRACTED Final Result * PROTIME (OUTSIDE LAB) (01/17/2019) PROTIME 30.5 INR 3.1 01/17/2019 us Doc [facility] Abstract LAB-OUTSIDE/ABSTRACTED Final Result * PROTIME (OUTSIDE LAB) (11/22/2018) PROTIME 21.4 INR 2.1 11/22/2018 us Doc [facility] Abstract LAB-OUTSIDE/ABSTRACTED Final Result documented in this encounter Visit Diagnoses Not on filedocumented in this encounter Care Teams Non Morse Intercept Technician Relationship Specialty Start Date End Date Goyo Beavers MD [facility]. [address] [address] PCP - General INTERNAL MEDICINE 03/09/16 07/08/22 Yovani Mendoza MD [address] [place] [address] PCP - General FAMILY PRACTICE 07/09/22 08/27/24 Janee Nath PA-C [address] [place] [address] PCP - General 08/28/24 Neto Schaefer MD [facility]. [address] [address] [place] Battery Container Inspector CARDIOVASCULAR DISEASE 02/21/16 Poncho Troy MD [facility]. [address] [place] [address] EP Battery Container Inspector CARDIOVASCULAR DISEASE 03/09/16 documented as of this encounter
--- OUTSIDE RECORDS SUMMARY | 2024-12-14 10:55 | XMS_ITS | Encounter Summary ---
Author Organization [facility] Address [address] [facility] [place] [address] Care Team Providers Care Kitchen Mechanic Name Role Phone Unavailable Primary Care Provider Unavailabl e Encounter Details Date Type Department Care Team (Late st Contact Info) Description 12/06/2020 Lab Requisition [facility] DermPath Lab [address] [facility] [place] [phone] Neo Tang MD [address] [facility] [place] [address] Social History Tobacco Use Types [...] AM CDT) Case Report Dermatopathology Report Case: [id number] Authorizing Provider: Neo Tang MD Collected: 12/05/2020 12:00 AM Ordering Location: [facility] DermPath Lab Received: 12/06/2020 06:12 AM [...] Clinical History A: SCCA vs AK. Path# [id number]. B: SCCA vs AK. Path# [id number]. 1:45 PM T DERMATOPATHOLOGY LABORATORY Gross Description Specimen A: Received is one formalin filled container labeled with the patient's name and designated left dorsal hand. The specimen consists of a shave biopsy measuring 7d8h5kz. Jar 0. Specimen B: Received is one formalin filled container labeled with the patient's name and designated left postauricular hairline. The specimen consists of a shave biopsy measuring 8z1t6ce. Jar 0. 1:45 PM T DERMATOPATHOLOGY LABORATORY [...] characteristic determined by the Dermatopathology Laboratory at [facility], directed by Dr. Violetta Daniel. These tests need not be, and therefore are not, approved by the [place] Food and Drug Administration. The tests are used for clinical purposes. Billing Codes Specimen Charges Stain Charges 05941 60082 1 1 1 1:45 PM CDT DERMATOPATHOLOGY LABORATORY Embedded Images 1:45 PM CDT DERMATOPATHOLOGY LABORATORY Pathology/Cytology TISSUE SPECIMEN FROM SKIN / Unknown 12/05/2020 12/06/2020 6:12 AM CDT Miscellaneous samples (specimen) TISSUE SPECIMEN FROM SKIN / Unknown 12/05/2020 12/06/2020 6:12 AM CDT us Neo Tang MD LAB - PATHOLOGY/CYTOLOGY ORDER ESTRELLA Final Result DERMATOPATHOLOGY LABORATORY [facility] - Department of Dermatology [facility] [address] [place] [address], [address] [phone] documented in this encounter Visit Diagnoses Not on filedocumented in this encounter
--- OUTSIDE RECORDS SUMMARY | 2024-12-14 10:55 | XMS_ITS | Encounter Summary ---
Author Organization [facility] Address [address] [place] [address] Care Team Providers Care Recharger Name Role Phone Unavailable Primary Care Provider Unavailabl e Encounter Details Date Type Department Care Team (Late st Contact Info) Description 05/10/2023 Lab Requisition [facility] - DermPath Lab [address] [facility] [place] [phone] Neo Tang MD [address] [place] [address] Social History Tobacco Use Types [...] AM CDT) Case Report Dermatopathology Report Case: [id number] Authorizing Provider: Neo Tang MD Collected: 05/10/2023 12:00 AM Ordering Location: [facility] DermPath Lab Received: 05/10/2023 04:27 PM Pathologist: Marian Dalal MD Specimen: Skin, left forearm 12:59 PM CDT DERMATOPATHOLOGY LABORATORY Final Diagnosis Specimen A. SKIN, left forearm: BENIGN VERRUCOUS KERATOSIS, INFLAMED (L82.1) 12:59 PM CDT DERMATOPATHOLOGY LABORATORY Clinical History SCCA vs AK. Path# [id number] 12:59 PM CDT DERMATOPATHOLOGY LABORATORY Gross Description [...] characteristic determined by the Dermatopathology Laboratory at [facility], directed by Dr. Violetta Daniel. These tests need not be, and therefore are not, approved by the [place] Food and Drug Administration. The tests are used for clinical purposes. Billing Codes Specimen Charges Stain Charges 68283 1 12:59 PM CDT DERMATOPATHOLOGY LABORATORY Embedded Images 12:59 PM CDT DERMATOPATHOLOGY LABORATORY Pathology/Cytolog y TISSUE SPECIMEN FROM SKIN / Unknown 05/10/2023 05/10/2023 4:27 PM CDT us Neo Tang MD LAB - PATHOLOGY/CYTOLOGY ORDER ESTRELLA Final Result DERMATOPATHOLOGY LABORATORY [facility] - Department of Dermatology [address] [place] [address], [facility] [phone] documented in this encounter Visit Diagnoses Not on filedocumented in this encounter
--- OUTSIDE RECORDS SUMMARY | 2024-12-14 10:55 | XMS_ITS | Clinical Summary ---
Author Organization [facility] Address [address] [place] [address] Care Team Providers Care Jewelry Maker Name Role Phone Unavailable Primary Care Provider Unavailabl e Source Comments [facility],non-owned Affiliates and Associated Physician Practices is amultiple site organization consisting of ambulatory clinics and hospital sitesin [place]. This disclosure is being madepursuant to the Care Everywhere program and may not contain all information available regarding this patient. Last updated 18.[facility] [employer] Encounters Date Type Department Care Team Description 12/07/2024 Lab Requisition [facility] - DermPath Lab [address] [facility] [place] [phone] Pineda Chavez MD Neoplasm of uncertain behavior of skin from Last 3 Months Social History Tobacco Use Types Packs/Day Years [...] CDT Neoplasm of uncertain behavior of skin from Last 3 Months Results * DERMATOPATHOLOGY (12/07/2024 12:00 AM CDT) Case Report Dermatopathology Report Case: [id number] Authorizing Provider: Pineda Chavez MD Collected: 12/07/2024 12:00 AM Ordering Location: [facility] - Received: 12/11/2024 11:32 AM DermPath Lab [...] specimen consists of a shave biopsy measuring 81z19n3 mm. Jar 0. 12:55 PM CDT DERMATOPATHOLOGY [...] characteristic determined by the Dermatopathology Laboratory at [facility], directed by Dr. Violetta Daniel. These tests need not be, and therefore are not, approved by the [place] Food and Drug Administration. The tests are used for clinical purposes. Billing Codes Specimen Charges Stain Charges 57120 1 12:55 PM CDT DERMATOPATHOLOGY LABORATORY Embedded Images 12:55 PM CDT DERMATOPATHOLOGY LABORATORY Pathology/Cytolog y TISSUE SPECIMEN FROM SKIN / Unknown 12/07/2024 12/11/2024 11:32 AM CDT Pineda Chavez MD LAB - PATHOLOGY/CYTOLOGY POOJAE JAMIL Final Result DERMATOPATHOLOGY LABORATORY [facility] - Department of Dermatology [address] [phone] from Last 3 Months Insurance MEDICARE AETNA MEDICARE ADV [facility] MEDICARE Member Subscriber Plan / Payer (Ef fective 2024-Present) Name:Pedro Viramontes Relation to Subscriber:Self Name:Pedro Viramontes Payer ID:[id number] (NAIC) Group ID:Not on file Type:Medicare-Managed Care Address: [address] [place] [address]
--- OUTSIDE RECORDS SUMMARY | 2024-12-14 10:55 | XMS_ITS | Encounter Summary ---
Author Organization [facility] Address [address] [place] [address] Care Team Providers Care Roll Inspector Name Role Phone Neto Schaefer MD Unavailable Goyo Beavers MD Primary Care Provider [phone] Poncho Troy MD Unavailable Yovani Mendoza MD Primary Care Provider [phone] Janee NathC Primary Care Provider [phone] Encounter Details Date Type Department Care Team (Late st Contact Info) Description 08/23/2021 [employer] [place] Message [facility] [address] [place] [address] Michelle Knox, ANP-BC [address] [place] [address] Test results ordered by primary Goyo Beavers MD Social History Tobacco Use Types Packs/Day Years Used Date Smoking Tobacco: Former Cigarettes Q uit: 2010 Smokeless Tobacco: Never Alcohol Use Standard Drinks/Week Comments No 0 (1 standard drink = 0.6 oz pur e alcohol) Sex and Gender Information Value Date Recorded Sex Assigned at Male 08/22/2024 10:32 AM 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 No / Unsure 08/22/2021 9:15 AM METAL SPRAY OPERATOR documented as of this encounter Plan of Treatment Upcoming Encounters Date Type Department Care Team (Late st Contact Info) Description 03/08/2025 11:00 AM CDT Office Visit [facility] [place] [address] [place] [phone] Michelle Knox, ANP-BC [address] [address] documented as of this encounter Visit Diagnoses Not on filedocumented in this encounter Care Teams Roll Inspector Relationship Specialty Start Date End Date Goyo Beavers MD [address] [address] PCP - General INTERNAL MEDICINE 03/09/16 07/08/22 Yovani Mendoza MD [address] [place] [address] PCP - General FAMILY PRACTICE 07/09/22 08/27/24 Janee Nath PA-C [address] [place] [address] PCP - General 08/28/24 Neto Schaefer MD [facility] [address] [place], [place] [address] Will Automatic Nailing Machine Operator CARDIOVASCULAR DISEASE 02/21/16 Poncho Troy MD Three [facility]. [address] [address] EP Automatic Nailing Machine Operator CARDIOVASCULAR DISEASE 03/09/16 documented as of this encounter
[2024-12-14 11:26] LABS: INR 2.2; Prothrombin Time 24.7 Seconds (11.1-14.7)
[2024-12-14 11:27] LABS: Partial Thromboplastin Time 41.7 Seconds (22.3-36.8)
[2024-12-14 11:31] LABS: Anion Gap 10 mmol/L (4-12); Blood Urea Nitrogen 23 mg/dL (9-20); Carbon Dioxide 30 mmol/L (22-30); Chloride 101 mmol/L (98-107); Estimated Glomerular Filt Rate 43; Glucose 113 mg/dL (65-110); Potassium 4.8 mmol/L (3.4-5.0); Sodium 141 mmol/L (137-145)
== END 2024-12-14 10:42 | disposition home or self-care (01) ==
LOC: ANHSURGERY 10:45
PROVIDERS: Anesthesiology; PCP Physician Assistant Medical; Visit Provider Urology
DX: I48.91 Unspecified atrial fibrillation (principal); N20.0 Calculus of kidney; E11.9 Type 2 diabetes mellitus without complications; I10 Essential (primary) hypertension
CPT/HCPCS: 36415; 80048; 85610; 85730; 87086; 93005

== ENCOUNTER 2024-12-27 00:11 | Day surgery (SDC) | payer OTHER, SELFPAY ==
[2024-12-13 15:50] VITALS: BMI 34.0
--- NOTE | 2024-12-13 16:14 | PC.NURSE ---
Report to the Outpatient Waiting Room, entrance under the green pavilion located off [facility], at time ___1:00PM____ on date ___12/27/24____. Planned Procedure Time: ____3:00PM____.? Time changes happen often and if your time is changed the preop area will call you the afternoon before. - You and your visitor will be asked to self-screen and do not enter if you have any COVID symptoms. Please call surgeon if you need to reschedule. - A mask is optional within the hospital at this time. Patients may have clear liquids (water, carbonated beverages, clear teas, apple juice) until 3 hours prior to surgery (12:00PM) with a maximum of 20 ounces. - No food from midnight until time of surgery and no smoking, or chewing tobacco (or any form of nicotine). No chewing gum, candy or mints. Take only the following medications with a SIP of water on the morning of surgery: ____AMLODIPINE, GABAPENTIN, METOPROLOL DO NOT STOP ANY OF YOUR OTHER PRESCRIPTION MEDICATIONS PRIOR TO SURGERY EXCEPT THE FOLLOWING Medications to discontinue per physician __HOLD COUMADIN, ASPIRIN & ALL VITAMINS/SUPPLEMENTS 7 DAYS PRE-OP PER DR HADDAD Date to take last dose 12/19/24. Please no make-up, nail italian, hairspray, perfume, deodorant, or body powder the day of surgery.? No jewelry (including any body piercings) or valuables the day of surgery, leave them at home.? Please take a shower or bath the night before, or the morning of, surgery with an antibacterial soap.? Wear comfortable, loose fitting clothing.? - Jewelry must be removed prior to entering the operating room.? Rings and piercings that are not removed may be cut off. - The hospital will not accept responsibility for valuables.? - Please leave all valuables, including medications, at home the day of surgery. If you are going home after surgery, a licensed swing driver must drive you home.? - NO public transportation without another adult if you receive anesthesia. - We recommend that an adult stay with you for 24 hours following discharge. - We also recommend that you do not drive, make important decision, drink alcoholic beverages, or take any drugs that were not prescribed by your health care provider for at least 24 hours after your discharge time. Follow any additional instructions given to you from your surgeon. Telephone instructions given to ____PATIENT and asked if any additional questions and then verbalized understanding. Patient advised to call surgeon office or pre surgery nurse liaison [phone] if any additional questions.
[2024-12-27] VITALS (8 sets, daily range): BP systolic 112–142; BP diastolic 67–92; PULSE 55–96; RESP 14–16; TEMP 36.4; O2SAT 93–100; BMI 33.4
--- NOTE | ~2024-12-27 | XR_ITS ---
EXAMINATION: XR abdomen/kub 1V DATE: 12/27/2024 13:13 INDICATION: Nephrolithiasis for planned extracorporeal shockwave lithotripsy. TECHNIQUE: A supine view of the abdomen on 2 radiographs was obtained. COMPARISON: 12/06/2024 FINDINGS: No interval change in a cluster of small to large stones at the lower pole of the left kidney measuri ng from 2 mm to 2.3 cm in maximal diameters. Also unchanged is a 2.7 x 1.3 cm stone in the mid right ureter project over the cephalad margin of the right sacral ala. Cholecystectomy clips in right upper quadrant. Partially visualized bilateral total hip arthroplasties. Normal bowel gas pattern. At leas t moderate lower lumbar spondylosis with severe facet osteoarthritis. IMPRESSION: 1. Stable appearance of multiple stones in the lower pole the left kidney and 2.7 x 1.3 similar stone in the mid right ureter. Reviewed, dictated and finalized at location A. IMPRESSION: 1. Stable appearance of multiple stones in the lower pole the left kidney and 2 .7 x 1.3 similar stone in the mid right ureter.
--- OUTSIDE RECORDS SUMMARY | 2024-12-27 00:14 | XMS_ITS | Encounter Summary ---
Author Organization [facility] Address [address] [place] [address] Care Team Providers Care Sportspersons Name Role Phone Unavailable Primary Care Provider Unavailabl e Encounter Details Date Type Department Care Team (Late st Contact Info) Description 12/07/2024 Lab Requisition [facility] - DermPath Lab [address] [place] [phone] Pineda Chavez MD [facility] DERMATOLOGY [address] [place] [phone] Neoplasm of uncertain behavior of skin [...] AM CDT) Case Report Dermatopathology Report Case: [id number] Authorizing Provider: Pineda Chavez MD Collected: 12/07/2024 12:00 AM Ordering Location: [facility] Physician [facility] - Received: 12/11/2024 11:32 AM DermPath Lab [...] specimen consists of a shave biopsy measuring 75x27e1 mm. Jar 0. 12:55 PM CDT DERMATOPATHOLOGY [...] purposes. Billing Codes Specimen Charges Stain Charges 72269 1 12:55 PM CDT DERMATOPATHOLOGY LABORATORY Embedded Images 12:55 PM CDT DERMATOPATHOLOGY LABORATORY Pathology/Cytolog y TISSUE SPECIMEN FROM SKIN / Unknown 12/07/2024 12/11/2024 11:32 AM CDT us Pineda Chavez MD LAB - PATHOLOGY/CYTOLOGY YAJAIRA NEGRON Final Result DERMATOPATHOLOGY LABORATORY [facility] - Department of Dermatology [address], [address] [phone] documented in this encounter Visit Diagnoses Diagnosis Neoplasm of uncertain behavior of skin documented in this encounter
--- OUTSIDE RECORDS SUMMARY | 2024-12-27 00:14 | XMS_ITS | Clinical Summary ---
Author Organization [facility] Address [address] [place] [address] Care Team Providers Care Reverse Logistics Analyst Name Role Phone Unavailable Primary Care Provider Unavailabl e Source Comments [facility],non-owned Affiliates and Associated Physician Practices is amultiple site organization consisting of ambulatory clinics and hospital sitesin [place], [place], [place] and [place]. This disclosure is being madepursuant to the Care Everywhere program and may not contain all information available regarding this patient. Last updated 18.[facility] Tactile Encounters Date Type Department Care Team Description 12/07/2024 Lab Requisition [facility] - DermPath Lab [address] [facility] [place] [phone] Pineda Chavez MD Neoplasm of uncertain behavior [...] AM CDT) Case Report Dermatopathology Report Case: [id number] Authorizing Provider: Pineda Chavez MD Collected: 12/07/2024 12:00 AM Ordering Location: [facility] - Received: 12/11/2024 11:32 AM [...] specimen consists of a shave biopsy measuring 77n23h0 mm. Jar 0. 12:55 PM CDT DERMATOPATHOLOGY [...] characteristic determined by the Dermatopathology Laboratory at [facility], directed by Dr. Violetta Daniel. These tests need not be, and therefore are not, approved by the [place] Food and Drug Administration. The tests are used for clinical purposes. Billing Codes Specimen Charges Stain Charges 57795 1 12:55 PM CDT DERMATOPATHOLOGY LABORATORY Embedded Images 12:55 PM CDT DERMATOPATHOLOGY LABORATORY Pathology/Cytolog y TISSUE SPECIMEN FROM SKIN / Unknown 12/07/2024 12/11/2024 11:32 AM CDT Pineda Chavez MD LAB - PATHOLOGY/CYTOLOGY YAJAIRA NEGRON Final Result DERMATOPATHOLOGY LABORATORY [facility] - Department of Dermatology [address] [phone] from Last 3 Months Insurance MEDICARE ADV PPO
--- OUTSIDE RECORDS SUMMARY | 2024-12-27 00:14 | XMS_ITS | Encounter Summary ---
Author Organization [facility] Address [address] [facility] [place] [address] Care Team Providers Care Tenant Selector Name Role Phone Unavailable Primary Care Provider Unavailabl e Encounter Details Date Type Department Care Team (Late st Contact Info) Description 04/11/2020 Lab Requisition [facility] DermPath Lab [address] [facility] [place] [phone] Neo Tang MD [address] [place] [address] Social History Tobacco Use Types [...] AM CDT) Case Report Dermatopathology Report Case: [id number] Authorizing Provider: Neo Tang MD Collected: 04/10/2020 12:00 AM Ordering Location: [facility] DermPath Lab Received: 04/11/2020 06:52 AM Pathologist: Debra De León MD Specimen: Skin, right lower leg 0 1:18 PM CDT DERMATOPATHOLOGY LABORATORY Final Diagnosis Specimen A. 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 Path # [id number]. 0 1:18 PM CDT DERMATOPATHOLOGY LABORATORY Gross Description Specimen A: Received is one formalin filled container labeled with the patient's name and designated right lower leg. The specimen consists of a shave biopsy measuring 3x8u6it. Jar 0. 0 1:18 PM CDT DERMATOPATHOLOGY [...] characteristic determined by the Dermatopathology Laboratory at [facility], directed by Dr. Violetta Daniel. These tests need not be, and therefore are not, approved by the [place] Food and Drug Administration. The tests are used for clinical purposes. Billing Codes Specimen Charges Stain Charges 09219 1 0 1:18 PM CDT DERMATOPATHOLOGY LABORATORY Embedded Images 0 1:18 PM CDT DERMATOPATHOLOGY LABORATORY Pathology/Cytolog y TISSUE SPECIMEN FROM SKIN / Unknown 04/10/2020 04/11/2020 6:52 AM CDT Neo Tang MD LAB - PATHOLOGY/CYTOLOGY ORDER ESTRELLA Final Result DERMATOPATHOLOGY LABORATORY [facility] - Department of Dermatology [address], [address] [phone] documented in this encounter Visit Diagnoses Not on filedocumented in this encounter
--- OUTSIDE RECORDS SUMMARY | 2024-12-27 00:14 | XMS_ITS | Encounter Summary ---
Author Organization [facility] Address [address] [place] [address] Care Team Providers Care Phonograph Cartridge Assembler Name Role Phone Unavailable Primary Care Provider Unavailabl e Encounter Details Date Type Department Care Team (Late st Contact Info) Description 05/15/2021 Lab Requisition [facility] DermPath Lab [address] [facility], [place] [phone] Neo Tang MD [address] [place] [address] Social History Tobacco Use Types [...] AM CDT) Case Report Dermatopathology Report Case: [id number] Authorizing Provider: Neo Tang MD Collected: 05/14/2021 12:00 AM Ordering Location: [facility] DermPath Lab Received: 05/15/2021 08:04 AM Pathologist: Debra De León MD Specimen: Skin, ant neck 3:16 PM CDT DERMATOPATHOLOGY LABORATORY Final Diagnosis Specimen A. 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 Path # [id number]. 3:16 PM CDT DERMATOPATHOLOGY LABORATORY Gross Description Specimen A: Received is one formalin filled container labeled with the patient's name and designated ant neck. The specimen consists of a shave biopsy measuring 1g5g7qn. Jar 0. 3:16 PM CDT DERMATOPATHOLOGY LABORATORY [...] characteristic determined by the Dermatopathology Laboratory at [facility], directed by Dr. Violetta Daniel. These tests need not be, and therefore are not, approved by the [place] Food and Drug Administration. The tests are used for clinical purposes. Billing Codes Specimen Charges Stain Charges 07025 1 3:16 PM CDT DERMATOPATHOLOGY LABORATORY Embedded Images 3:16 PM CDT DERMATOPATHOLOGY LABORATORY Pathology/Cytolog y TISSUE SPECIMEN FROM SKIN / Unknown 05/14/2021 05/15/2021 8:04 AM CDT Neo Tang MD LAB - PATHOLOGY/CYTOLOGY ORDER ESTRELLA Final Result DERMATOPATHOLOGY LABORATORY [facility] - Department of Dermatology [address] [place] [address], [facility] [phone] documented in this encounter Visit Diagnoses Not on filedocumented in this encounter
--- OUTSIDE RECORDS SUMMARY | 2024-12-27 00:14 | XMS_ITS | Encounter Summary ---
Author Organization [facility] Address [address] [place] [address] Care Team Providers Care Government Affairs Researcher Name Role Phone Unavailable Primary Care Provider Unavailabl e Encounter Details Date Type Department Care Team (Late st Contact Info) Description 12/06/2020 Lab Requisition [facility] DermPath Lab [address] [facility], [place] [phone] Neo Tang MD [address] [place] [address] Social History Tobacco Use Types [...] AM CDT) Case Report Dermatopathology Report Case: [id number] Authorizing Provider: Neo Tang MD Collected: 12/05/2020 12:00 AM Ordering Location: [facility] DermPath Lab Received: 12/06/2020 06:12 AM Pathologist: Debra De León MD Specimens: A) - Skin, left dorsal hand B) - Skin, left postauricular hairline 1:45 PM CDT DERMATOPATHOLOGY LABORATORY Final Diagnosis Specimen A. 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 SKIN, left postauricular hairline: SQUAMOUS CELL CARCINOMA, ACANTHOLYTIC TYPE (C44.42) 1:45 PM CDT DERMATOPATHOLOGY LABORATORY at 1345 CDT Clinical History A: SCCA vs AK. Path# [id number]. B: SCCA vs AK. Path# [id number]. 1:45 PM CDT DERMATOPATHOLOGY LABORATORY Gross Description Specimen A: Received is one formalin filled container labeled with the patient's name and designated left dorsal hand. The specimen consists of a shave biopsy measuring 5a5m9ac. Jar 0. Specimen B: Received is one formalin filled container labeled with the patient's name and designated left postauricular hairline. The specimen consists of a shave biopsy measuring 8f9d3ov. Jar 0. 1:45 PM CDT DERMATOPATHOLOGY LABORATORY Microscopic Description Specimen [...] cells that lack intercellular bridges. 1:45 PM CDT DERMATOPATHOLOGY LABORATORY Disclaimer An external and internal positive and negative controls are appropriate for the histochemical, immunohistochemical and immunofluorescence stain(s) in this case (if any), except where stated explicitly. The performance characteristics of the stain(s) cited in this report were developed and its performance characteristic determined by the Dermatopathology Laboratory at [facility], directed by Dr. Violetta Dainel. These tests need not be, and therefore are not, approved by the [place] Food and Drug Administration. The tests are used for clinical purposes. Billing Codes Specimen Charges Stain Charges 04881 95029 1 1 1 1:45 PM CDT DERMATOPATHOLOGY LABORATORY Embedded Images 1:45 PM CDT DERMATOPATHOLOGY LABORATORY Pathology/Cytology TISSUE SPECIMEN FROM SKIN / Unknown 12/05/2020 12/06/2020 6:12 AM CDT Miscellaneous samples (specimen) TISSUE SPECIMEN FROM SKIN / Unknown 12/05/2020 12/06/2020 6:12 AM CDT us Neo Tang MD LAB - PATHOLOGY/CYTOLOGY ORDER ESTRELLA Final Result DERMATOPATHOLOGY LABORATORY [facility] - Department of Dermatology [facility] [address] [place] [address], [address] [phone] documented in this encounter Visit Diagnoses Not on filedocumented in this encounter
--- OUTSIDE RECORDS SUMMARY | 2024-12-27 00:14 | XMS_ITS | Encounter Summary ---
Author Organization [facility] Address [address] [facility] [place] [address] Care Team Providers Care Brand Protection Manager Name Role Phone Unavailable Primary Care Provider Unavailabl e Encounter Details Date Type Department Care Team (Late st Contact Info) Description 05/10/2023 Lab Requisition [facility] - DermPath Lab [address] [facility] [place] [phone] Neo Tang MD [address] [place] [address] Social History Tobacco Use Types [...] AM CDT) Case Report Dermatopathology Report Case: [id number] Authorizing Provider: Neo Tang MD Collected: 05/10/2023 12:00 AM Ordering Location: [facility] DermPath Lab Received: 05/10/2023 04:27 PM Pathologist: Marian Dalal MD Specimen: Skin, left forearm 12:59 PM CDT DERMATOPATHOLOGY LABORATORY Final Diagnosis Specimen A. SKIN, left forearm: BENIGN VERRUCOUS KERATOSIS, INFLAMED (L82.1) 12:59 PM CDT DERMATOPATHOLOGY LABORATORY at 1259 CDT Clinical History SCCA vs AK. Path# [id number] 12:59 PM CDT DERMATOPATHOLOGY LABORATORY Gross Description [...] characteristic determined by the Dermatopathology Laboratory at [facility], directed by Dr. Violetta Daniel. These tests need not be, and therefore are not, approved by the [place] Food and Drug Administration. The tests are used for clinical purposes. Billing Codes Specimen Charges Stain Charges 23867 1 12:59 PM CDT DERMATOPATHOLOGY LABORATORY Embedded Images 12:59 PM CDT DERMATOPATHOLOGY LABORATORY Pathology/Cytolog y TISSUE SPECIMEN FROM SKIN / Unknown 05/10/2023 05/10/2023 4:27 PM CDT us Neo Tang MD LAB - PATHOLOGY/CYTOLOGY ORDER ESTRELLA Final Result DERMATOPATHOLOGY LABORATORY [facility] - Department of Dermatology [address] [place] [address], [facility] [phone] documented in this encounter Visit Diagnoses Not on filedocumented in this encounter
--- OUTSIDE RECORDS SUMMARY | 2024-12-27 00:14 | XMS_ITS | Encounter Summary ---
Author Organization [facility] Address [address] [facility] [place] [address] Care Team Providers Care Screen Printing Machine Operator Name Role Phone Unavailable Primary Care Provider Unavailabl e Encounter Details Date Type Department Care Team (Late st Contact Info) Description 08/30/2020 Lab Requisition [facility] DermPath Lab [address] [facility] [place] [phone] Neo Tang MD [address] [address] Social History Tobacco Use Types [...] Diagnosis Comments DERMATOPATHOLOGY Routine 08/29/2020 3:27 AM SLOT ROUTER documented in this encounter Results * DERMATOPATHOLOGY (08/29/2020 3:27 AM SLOT ROUTER) Case Report Dermatopathology Report Case: [id number] Authorizing Provider: Neo Tang MD Collected: 08/29/2020 03:27 AM Ordering Location: [facility] DermPath Lab Received: 08/30/2020 07:26 AM Pathologist: Constanza Castro MD Specimens: A) - Skin, frontal scalp B) - Skin, crown 1:20 PM SLOT ROUTER DERMATOPATHOLOGY LABORATORY Final Diagnosis Specimen A. SKIN, frontal scalp: HYPERPLASTIC (HYPERTROPHIC) ACTINIC KERATOSIS, LICHENOID (L57.0)= OVERLYING CUTANEOUS HORN (L85.8) Specimen B. SKIN, crown: HYPERPLASTIC (HYPERTROPHIC) ACTINIC KERATOSIS, LICHENOID (L57.0) OVERLYING CUTANEOUS HORN (L85.8) 1 1:20 PM [facility] DERMATOPATHOLOGY LABORATORY at 1320 SLOT ROUTER Clinical History A: SCCA vs AK. Path# [id number]. B: SCCA vs AK. Path# [id number]. 1 1:20 PM [facility] DERMATOPATHOLOGY LABORATORY Gross Description Specimen A: Received is one formalin filled container labeled with the patient's name and designated frontal scalp. The specimen consists of a shave biopsy measuring 71x27k0dh. Jar 0+. Specimen B: Received is one formalin filled container labeled with the patient's name and designated crown. The specimen consists of a shave biopsy measuring 87i30q5qq, bisected. Jar 0+. 1:20 PM [facility] DERMATOPATHOLOGY LABORATORY Microscopic Description Specimen A. [...] column of marked compact hyperkeratosis. 1:20 PM [facility] DERMATOPATHOLOGY LABORATORY Disclaimer An external and internal positive and negative controls are appropriate for the histochemical, immunohistochemical and immunofluorescence stain(s) in this case (if any), except where stated explicitly. The performance characteristics of the stain(s) cited in this report were developed and its performance characteristic determined by the Dermatopathology Laboratory at [facility], directed by Dr. Violetta Daniel. These tests need not be, and therefore are not, approved by the [place] Food and Drug Administration. The tests are used for clinical purposes. Billing Codes Specimen Charges Stain Charges 46734 87596 1 1 1 1:20 PM [facility] DERMATOPATHOLOGY LABORATORY Embedded Images 1:20 PM [facility] DERMATOPATHOLOGY LABORATORY Pathology/Cytology TISSUE SPECIMEN FROM SKIN / Unknown 08/29/2020 3:27 AM SLOT ROUTER 08/30/2020 7:26 AM SLOT ROUTER Miscellaneous samples (specimen) TISSUE SPECIMEN FROM SKIN / Unknown 08/29/2020 3:27 AM SLOT ROUTER 08/30/2020 7:26 AM SLOT ROUTER us Neo Tang MD LAB - PATHOLOGY/CYTOLOGY ORDER ESTRELLA Final Result DERMATOPATHOLOGY LABORATORY [facility] - Department of Dermatology [facility] [address] [place] [address], [address] [phone] documented in this encounter Visit Diagnoses Not on filedocumented in this encounter
--- NOTE | 2024-12-27 06:52 | WPDHPUPDATE1 ---
History and Physical Update Update Date/Time: 12/27/24 06:52 History and Physical has been reviewed, including an updated exam of the patient. There are NO changes in the patient's condition. Risks, benefits, and alternatives have been discussed and questions answered. Patient agrees to proceed with procedure.
[2024-12-27] MEDS: LACTATED RINGERS 1,000 ML 30 ML IV CONT (13:55)
[2024-12-27 14:15] LABS: Glucose Point of Care 113 mg/dl (65-105)
[2024-12-27 14:48] LABS: Partial Thromboplastin Time 30.2 Seconds (22.3-36.8)
[2024-12-27 14:57] LABS: INR 1.2; Prothrombin Time 15.3 Seconds (11.1-14.7)
--- NOTE | 2024-12-27 15:16 | P.PNAN_ITS ---
Anes - Initial Pre Proc Eval Procedure: Operation Date: 12/27/24 15:00 Proposed Procedures p Right Extracorporeal Shock Wave Lithotripsy, - Anish Andrew MD s Cystoscopy, Right Stent Placement - Anish Andrew MD Date/Time: 12/27/24 15:16 Surgeon: Anish Andrew MD Pre Op Diagnosis: right kidney stone Patient Data Age: 74 Gender: M Height: 1.88 m Weight: 118 kg Allergies Allergy/AdvReac Type Severity Reaction Status Date / Time No Known Allergies Allergy Unknown Verified 12/27/24 14:36 Home Medications ?Medication ?Instructions ?Recorded ?Confirmed ?Type aspirin 81 mg tablet,delayed 81 mg PO DAILY 07/07/22 12/27/24 History release (Adult Low Dose Aspirin) cholecalciferol (vitamin D3) 50 50 mcg PO DAILY 07/07/22 12/27/24 History mcg (2,000 unit) capsule mecobalamin (vitamin B12) 1,000 2,000 mcg sublingual DAILY 07/07/22 12/27/24 Hi story mcg disintegrating tablet,sublingual multivitamin (Daily Multi-Vitamin 1 tablet PO DAILY 07/07/22 12/27/24 History tablet) omega-3 fatty acids-fish oil 360 1 cap PO DAILY 07/07/22 12/27/24 History mg-1,200 mg capsule (Fish Oil) lisinopril 20 mg tablet 20 mg PO DAILY 07/28/23 12/27/24 History warfarin 5 mg tablet 5 mg PO DAILY 07/28/23 12/27/24 History amlodipine 10 mg tablet 10 mg PO DAILY #90 tabs 08/21/24 12/27/24 Rx dapagliflozin propanediol 10 mg 10 mg PO QAM #90 tabs 08/21/24 12/27/24 Rx tablet (Farxiga) fenofibrate 160 mg tablet 160 mg PO DAILY #90 tabs 08/21/24 12/27/24 Rx gabapentin 300 mg capsule 300 mg PO TID #270 caps 08/21/24 12/27/24 Rx hydrochlorothiazide 12.5 mg tablet 12.5 mg PO DAILY #90 tabs 08/21/24 12/27/24 Rx metoprolol tartrate 50 mg tablet 75 mg PO BID 08/21/24 12/27/24 History hydrocodone 5 mg-acetaminophen 325 1 tablet PO Q8H PRN pain #20 tabs 11/10/24 12/13/24 Rx mg tablet metformin 500 mg tablet,extended 500 mg PO BID 12/13/24 12/27/24 History release 24 hr metoprolol tartrate 25 mg tablet 25 mg PO Q12H 12/13/24 12/27/24 History Laboratory Tests 12/27/24 12/27/24 14:03 14:26 PT 15.3 H Seconds (11.1-14.7) INR 1.2 APTT 30.2 Seconds (22.3-36.8) POC Capillary Glucose 113 H mg/dl (65-105) Patient hx anesthesia problems: none Family hx anesthesia problems: none Results Review: All pre-operative results and documents have been reviewed as part of the pre- operative evaluation. ON LICENSE OF [facility] Past Medical History Medical History Chronic kidney disease Gout Screening for prostate cancer Hypothyroidism PVC (premature ventricular contraction) Paroxysmal atrial flutter Paroxysmal A-fib Colon cancer SHELL (obstructive sleep apnea) Uses CPAP machine follows with ENT- [place] sinus sleep an allergy Diabetes Dyslipidemia Arthritis Hypertension Surgical History Surgical History Total knee replacement status left 08/28/2022 Status post catheter ablation of atrial fibrillation H/O colonoscopy 01/15/22 H/O colectomy History of cholecystectomy History of hip replacement bilateral Social History Social History Social History: 11/08/24 very confident with medical forms. Smoking packs per day: 0.5 Smoking cigarettes per day: 10.0 Years smoked: 10 Smoking pack-years: 5.00 Smoking status: Former smoker Tobacco type: cigarettes Smoking end date: 02/06/10 Alcohol intake: never Substance use: never Do You Feel Safe in your Home?: Yes Lack of Transportation: No Lack of Food: Never True Current Housing: I Have Housing Concerned About Future Housing: No Difficulty Paying Gas/Electric Bills: No Difficulty Paying for Meds: No Currently Unemployed: No Education: Associate Degree Difficulty w/ Childcare or Family Care: No Living arrangements: with family Additional living arrangements comments: [place] Occupation/Education: retired Spiritual care concerns: No Agree to blood products: Yes Anes - Eval Final PreProcedure Day of Procedure 12/27/24 15:16 Patient weight: obese Heart: regular rate and rhythm Lungs: decreased breath sounds Airway: Mallampati scale class II Neurological: alert and oriented Last oral intake: >/= 8 hours ASA classification: III Emergent: no Anesthetic plan: proceed Anesthesia type and monitoring: general LMA and standard monitoring Results Review: All pre-operative results and documents have been reviewed as part of the pre- operative evaluation. Informed Consent: The patient's anesthetic plan and its attendant risks and benefits were discussed with the patient/family/POA. Questions were solicited and answers provided to the satisfaction of the patient/family/POA.
[2024-12-27] MEDS: ceFAZolin 2 GM/D5W 50 ML 2 GM/50 ML BAG IVPB (15:21)
--- NOTE | 2024-12-27 15:52 | P.OP_ITS ---
Procedure Note - Detailed Date of Procedure 12/27/24 Pre-op Diagnosis Right ureteral stone / left kidney stones Post-op Diagnosis Same Procedure Performed Cystoscopy, right ureteral stent placement, right ESWL Surgeon Anish Andrew MD Anesthesia General Description of Procedure The patient was brought to the operative suite where he was placed in the supine position on the Dornier lithotripter table. Flexible cystoscopy was undertaken with a 16F flexible cystoscopy. There were no urethral strictures. The prostatic urethra estimated length was 2.0cm. There was mild obstruction of the prostatic urethra with small median lobe enlargement. The bladder mucosa was normal and there was a single, orthotopic ureteral orifice bilaterally. A 0.035 glidewire was advanced into the right renal pelvis under fluoroscopy. A 4.8F J-J ureteral stent was positioned with the proximal coil in the renal pelv is and the distal coil in the bladder. The patient was then repositioned in the supine position with the focal point of the lithotriptor on a18mm right mid- ureteral calculus. A total of 3000 shocks were delivered at a power setting of 6. There appeared to be good fragmentation of the stone. The patient tolerated the procedure well and was taken to the recovery room in good condition.
[2024-12-27 16:44] LABS: Glucose Point of Care 108 mg/dl (65-105)
== END 2024-12-27 18:27 | disposition home or self-care (01) ==
PROVIDERS: PCP Physician Assistant Medical; Visit Provider Urology
PROC: (CPT 50590; principal; 2024-12-27 15:00)
PROC: (CPT 52352; 2024-12-27 15:00)
DX: N20.2 Calculus of kidney with calculus of ureter (principal); E03.9 Hypothyroidism, unspecified; E11.22 Type 2 diabetes mellitus with diabetic chronic kidney disease; I12.9 Hypertensive chronic kidney disease with stage 1 through stage 4 chronic kidney disease, or unspecified chronic kidney disease; N18.9 Chronic kidney disease, unspecified; E78.00 Pure hypercholesterolemia, unspecified; I48.0 Paroxysmal atrial fibrillation; I48.92 Unspecified atrial flutter; I49.3 Ventricular premature depolarization; R31.0 Gross hematuria; M19.90 Unspecified osteoarthritis, unspecified site; G47.33 Obstructive sleep apnea (adult) (pediatric); E66.9 Obesity, unspecified; Z68.33 Body mass index [BMI] 33.0-33.9, adult; Z99.89 Dependence on other enabling machines and devices; Z79.84 Long term (current) use of oral hypoglycemic drugs; Z79.82 Long term (current) use of aspirin; Z79.891 Long term (current) use of opiate analgesic; Z79.01 Long term (current) use of anticoagulants; Z98.890 Other specified postprocedural states; Z90.49 Acquired absence of other specified parts of digestive tract; Z87.891 Personal history of nicotine dependence; Z85.038 Personal history of other malignant neoplasm of large intestine; Z82.49 Family history of ischemic heart disease and other diseases of the circulatory system
CPT/HCPCS: 52332; 50590; 36415; 74018; 82948; 85610; 85730; C1758; C1769; C2617; J0690; J1100; J2405; J2704; J3010; J7120

== ENCOUNTER 2025-01-16 10:43 | Outpatient (CLI) | payer OTHER, SELFPAY ==
--- NOTE | ~2025-01-16 | XR_ITS ---
XR abdomen/kub 1V Ordering provider: Anish Andrew MD History: . N20.1 - Calculus of ureter . Comparison: None. FINDINGS: BOWEL: Nonobstructive bowel gas pattern. ORGANOMEGALY: None. SIGNIFICANT PATHOLOGIC CALCIFICATIONS: Stones are seen in the left kidney lower pole measuring 2.4 an d 2.1 cm. Right double-J stent is noted. OTHER: No free air is seen under the diaphragm. Bilateral sacroiliitis. Degenerative changes of the s pine. Bilateral hip arthroplasty. Pubic symphysitis. IMPRESSION: NO ACUTE ABDOMINAL FINDINGS. Left kidney lower pole stones. Reviewed, dictated and finalized at location A.
--- OUTSIDE RECORDS SUMMARY | 2025-01-16 11:59 | XMS_ITS | Encounter Summary ---
Author Organization [facility] Address [address] [facility] [place] [address] Care Team Providers Care Medical Record Administrator Name Role Phone Unavailable Primary Care Provider Unavailabl e Encounter Details Date Type Department Care Team (Late st Contact Info) Description 08/30/2020 Lab Requisition [facility] DermPath Lab [address] [facility], [place] [phone] Neo Tang MD [address] [facility] [address] [place] [address] Social History Tobacco Use Types [...] Diagnosis Comments DERMATOPATHOLOGY Routine 08/29/2020 3:27 AM WRAPPER OPERATOR documented in this encounter Results * DERMATOPATHOLOGY (08/29/2020 3:27 AM WRAPPER OPERATOR) Case Report Dermatopathology Report Case: [id number] Authorizing Provider: Neo Tang MD Collected: 08/29/2020 03:27 AM Ordering Location: [facility] DermPath Lab Received: 08/30/2020 07:26 AM Pathologist: Constanza Castro MD Specimens: A) - Skin, frontal scalp B) - Skin, crown 1:20 PM WRAPPER OPERATOR DERMATOPATHOLOGY LABORATORY Final Diagnosis Specimen A. SKIN, frontal scalp: HYPERPLASTIC (HYPERTROPHIC) ACTINIC KERATOSIS, LICHENOID (L57.0)= OVERLYING CUTANEOUS HORN (L85.8) Specimen B. SKIN, crown: HYPERPLASTIC (HYPERTROPHIC) ACTINIC KERATOSIS, LICHENOID (L57.0) OVERLYING CUTANEOUS HORN (L85.8) 1 1:20 PM [facility] DERMATOPATHOLOGY LABORATORY at 1320 WRAPPER OPERATOR Clinical History A: SCCA vs AK. Path# [id number]. B: SCCA vs AK. Path# [id number]. 1 1:20 PM [facility] DERMATOPATHOLOGY LABORATORY Gross Description Specimen A: Received is one formalin filled container labeled with the patient's name and designated frontal scalp. The specimen consists of a shave biopsy measuring 20h48i4ae. Jar 0+. Specimen B: Received is one formalin filled container labeled with the patient's name and designated crown. The specimen consists of a shave biopsy measuring 73c65q3xh, bisected. Jar 0+. 1:20 PM [facility] DERMATOPATHOLOGY LABORATORY Microscopic Description Specimen A. [...] column of marked compact hyperkeratosis. 1:20 PM [facility] DERMATOPATHOLOGY LABORATORY Disclaimer An external and [...] purposes. Billing Codes Specimen Charges Stain Charges 49700 10027 1 1 1 1:20 PM [facility] DERMATOPATHOLOGY LABORATORY Embedded Images 1:20 PM [facility] DERMATOPATHOLOGY LABORATORY Pathology/Cytology TISSUE SPECIMEN FROM SKIN / Unknown 08/29/2020 3:27 AM WRAPPER OPERATOR 08/30/2020 7:26 AM WRAPPER OPERATOR Miscellaneous samples (specimen) TISSUE SPECIMEN FROM SKIN / Unknown 08/29/2020 3:27 AM WRAPPER OPERATOR 08/30/2020 7:26 AM WRAPPER OPERATOR us Neo Tang MD LAB - PATHOLOGY/CYTOLOGY ORDER ESTRELLA Final Result DERMATOPATHOLOGY LABORATORY [facility] - Department of Dermatology [facility] Special[facility] Medicine [address] [place] [address], [address] [phone] documented in this encounter Visit Diagnoses Not on filedocumented in this encounter
--- OUTSIDE RECORDS SUMMARY | 2025-01-16 11:59 | XMS_ITS | Encounter Summary ---
Author Organization [facility] Address [address] [facility] [place] [address] Care Team Providers Care Buzzsaw Operator Helper Name Role Phone Unavailable Primary Care Provider Unavailabl e Encounter Details Date Type Department Care Team (Late st Contact Info) Description 05/15/2021 Lab Requisition [facility] DermPath Lab [address] [facility], [place] [phone] Neo Tang MD [address] [place] [address] Social History Tobacco Use Types [...] AM CDT) Case Report Dermatopathology Report Case: [id number] Authorizing Provider: Neo Tang MD Collected: 05/14/2021 12:00 AM Ordering Location: [facility] DermPath Lab Received: 05/15/2021 08:04 AM Pathologist: Debra De León MD Specimen: Skin, ant neck 3:16 PM CDT DERMATOPATHOLOGY LABORATORY Final Diagnosis Specimen A. 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 Path # [id number]. 3:16 PM CDT DERMATOPATHOLOGY LABORATORY Gross Description Specimen A: Received is one formalin filled container labeled with the patient's name and designated ant neck. The specimen consists of a shave biopsy measuring 6a4p9yb. Jar 0. 3:16 PM CDT DERMATOPATHOLOGY LABORATORY Microscopic Description Specimen A. SKIN, ant neck: Within the dermis, there is a well-circumscribed aggregate of spindle shaped cells with hints of organization into fascicles and clefts between these fascicles. 3:16 PM CDT DERMATOPATHOLOGY LABORATORY Disclaimer An external and internal positive and negative controls are appropriate for the histochemical, immunohistochemical and immunofluorescence stain(s) in this case (if any), except where stated explicitly. The performance characteristics of the stain(s) cited in this report were developed and its performance characteristic determined by the Dermatopathology Laboratory at [facility], directed by Dr. Violetta Daniel. These tests need not be, and therefore are not, approved by the [place] Food and Drug Administration. The tests are used for clinical purposes. Billing Codes Specimen Charges Stain Charges 91814 1 3:16 PM CDT DERMATOPATHOLOGY LABORATORY Embedded Images 3:16 PM CDT DERMATOPATHOLOGY LABORATORY Pathology/Cytolog y TISSUE SPECIMEN FROM SKIN / Unknown 05/14/2021 05/15/2021 8:04 AM CDT Neo Tang MD LAB - PATHOLOGY/CYTOLOGY ORDER ESTRELLA Final Result DERMATOPATHOLOGY LABORATORY [facility] - Department of Dermatology [address], [address] [place] [address], [facility] [phone] documented in this encounter Visit Diagnoses Not on filedocumented in this encounter
--- OUTSIDE RECORDS SUMMARY | 2025-01-16 11:59 | XMS_ITS | Encounter Summary ---
Author Organization [facility] Address [address] [facility] [place] [address] Care Team Providers Care Bird Keeper Name Role Phone Unavailable Primary Care Provider Unavailabl e Encounter Details Date Type Department Care Team (Late st Contact Info) Description 04/11/[address] [facility] DermPath Lab [address] [facility] [place] [phone] Neo Tang MD [address] [place] [address] Social History Tobacco Use Types [...] AM CDT) Case Report Dermatopathology Report Case: [id number] Authorizing Provider: Neo Tang MD Collected: 04/10/2020 12:00 AM Ordering Location: [facility] DermPath Lab Received: 04/11/2020 06:52 AM Pathologist: Debra De León MD Specimen: Skin, right lower leg 0 1:18 PM CDT DERMATOPATHOLOGY LABORATORY Final Diagnosis Specimen A. 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 Path # [id number]. 0 1:18 PM CDT DERMATOPATHOLOGY LABORATORY Gross Description Specimen A: Received is one formalin filled container labeled with the patient's name and designated right lower leg. The specimen consists of a shave biopsy measuring 2s7k2bu. Jar 0. 0 1:18 PM CDT DERMATOPATHOLOGY [...] characteristic determined by the Dermatopathology Laboratory at [facility], directed by Dr. Violetta Daniel. These tests need not be, and therefore are not, approved by the [place] Food and Drug Administration. The tests are used for clinical purposes. Billing Codes Specimen Charges Stain Charges 97412 1 0 1:18 PM CDT DERMATOPATHOLOGY LABORATORY Embedded Images 0 1:18 PM CDT DERMATOPATHOLOGY LABORATORY Pathology/Cytolog y TISSUE SPECIMEN FROM SKIN / Unknown 04/10/2020 04/11/2020 6:52 AM CDT Neo Tang MD LAB - PATHOLOGY/CYTOLOGY ORDER ESTRELLA Final Result DERMATOPATHOLOGY LABORATORY [facility] - Department of Dermatology [address], [address] [phone] documented in this encounter Visit Diagnoses Not on filedocumented in this encounter
--- OUTSIDE RECORDS SUMMARY | 2025-01-16 11:59 | XMS_ITS | Encounter Summary ---
Author Organization [facility] Address [address] [place] [address] Care Team Providers Care Belt Picker Name Role Phone Unavailable Primary Care Provider Unavailabl e Encounter Details Date Type Department Care Team (Late st Contact Info) Description 12/07/2024 Lab Requisition [facility] - DermPath Lab [address] [place] [phone] Pineda Chavez MD [facility] DERMATOLOGY [address] [place] [phone] Neoplasm of uncertain behavior of skin [...] AM CDT) Case Report Dermatopathology Report Case: [id number] Authorizing Provider: Pineda Chavez MD Collected: 12/07/2024 12:00 AM Ordering Location: [facility] - Received: 12/11/2024 11:32 AM DermPath Lab [...] specimen consists of a shave biopsy measuring 86o10q8 mm. Jar 0. 12:55 PM CDT DERMATOPATHOLOGY [...] characteristic determined by the Dermatopathology Laboratory at [facility], directed by Dr. Violetta Daniel. These tests need not be, and therefore are not, approved by the [place] Food and Drug Administration. The tests are used for clinical purposes. Billing Codes Specimen Charges Stain Charges 03746 1 12:55 PM CDT DERMATOPATHOLOGY LABORATORY Embedded Images 12:55 PM CDT DERMATOPATHOLOGY LABORATORY Pathology/Cytolog y TISSUE SPECIMEN FROM SKIN / Unknown 12/07/2024 12/11/2024 11:32 AM CDT us Pineda Chavez MD LAB - PATHOLOGY/CYTOLOGY YAJAIRA NEGRON Final Result DERMATOPATHOLOGY LABORATORY [facility] - Department of Dermatology [address], [address] [phone] documented in this encounter Visit Diagnoses Diagnosis Neoplasm of uncertain behavior of skin documented in this encounter
--- OUTSIDE RECORDS SUMMARY | 2025-01-16 11:59 | XMS_ITS | Encounter Summary ---
Author Organization [facility] Address [address] [place] [address] Care Team Providers Care Manager Clinical Research Name Role Phone Unavailable Primary Care Provider Unavailabl e Encounter Details Date Type Department Care Team (Late st Contact Info) Description 05/10/2023 Lab Requisition [facility] - DermPath Lab [address] [facility] [place] [phone] Neo Tang MD [address] [place] [address] Social History Tobacco Use Types [...] AM CDT) Case Report Dermatopathology Report Case: [id number] Authorizing Provider: Neo Tang MD Collected: 05/10/2023 12:00 AM Ordering Location: [facility] Received: 05/10/2023 04:27 PM Pathologist: Marian Dalal MD Specimen: Skin, left forearm 12:59 PM CDT DERMATOPATHOLOGY LABORATORY Final Diagnosis Specimen A. SKIN, left forearm: BENIGN VERRUCOUS KERATOSIS, INFLAMED (L82.1) 12:59 PM CDT DERMATOPATHOLOGY LABORATORY at 1259 CDT Clinical History SCCA vs AK. Path# [id number] 12:59 PM CDT DERMATOPATHOLOGY LABORATORY Gross Description [...] characteristic determined by the Dermatopathology Laboratory at [facility], directed by Dr. Violetta Daniel. These tests need not be, and therefore are not, approved by the [place] Food and Drug Administration. The tests are used for clinical purposes. Billing Codes Specimen Charges Stain Charges 83486 1 12:59 PM CDT DERMATOPATHOLOGY LABORATORY Embedded Images 12:59 PM CDT DERMATOPATHOLOGY LABORATORY Pathology/Cytolog y TISSUE SPECIMEN FROM SKIN / Unknown 05/10/2023 05/10/2023 4:27 PM CDT us Neo Tang MD LAB - PATHOLOGY/CYTOLOGY ORDER ESTRELLA Final Result DERMATOPATHOLOGY LABORATORY [facility] - Department of Dermatology [address] [place] [address], [facility] [phone] documented in this encounter Visit Diagnoses Not on filedocumented in this encounter
--- OUTSIDE RECORDS SUMMARY | 2025-01-16 11:59 | XMS_ITS | Encounter Summary ---
Author Organization [facility] Address [address] [facility] [place] [address] Care Team Providers Care Second Baker Name Role Phone Unavailable Primary Care Provider Unavailabl e Encounter Details Date Type Department Care Team (Late st Contact Info) Description 12/06/2020 Lab Requisition [facility] DermPath Lab [address] [facility], [place] [phone] Neo Tang MD [address] [address] Social History Tobacco Use Types [...] AM CDT) Case Report Dermatopathology Report Case: [id number] Authorizing Provider: Neo Tang MD Collected: 12/05/2020 12:00 AM Ordering Location: [facility] DermPath Lab Received: 12/06/2020 06:12 AM [...] Clinical History A: SCCA vs AK. Path# [id number]. B: SCCA vs AK. Path# [id number]. 1:45 PM CDT DERMATOPATHOLOGY LABORATORY Gross Description Specimen A: Received is one formalin filled container labeled with the patient's name and designated left dorsal hand. The specimen consists of a shave biopsy measuring 0g7e8mn. Jar 0. Specimen B: Received is one formalin filled container labeled with the patient's name and designated left postauricular hairline. The specimen consists of a shave biopsy measuring 4k5k4yt. Jar 0. 1:45 PM CDT DERMATOPATHOLOGY LABORATORY [...] characteristic determined by the Dermatopathology Laboratory at [facility], directed by Dr. Violetta Daniel. These tests need not be, and therefore are not, approved by the [place] Food and Drug Administration. The tests are used for clinical purposes. Billing Codes Specimen Charges Stain Charges 96653 23523 1 1 1 1:45 PM CDT DERMATOPATHOLOGY LABORATORY Embedded Images 1:45 PM CDT DERMATOPATHOLOGY LABORATORY Pathology/Cytology TISSUE SPECIMEN FROM SKIN / Unknown 12/05/2020 12/06/2020 6:12 AM CDT Miscellaneous samples (specimen) TISSUE SPECIMEN FROM SKIN / Unknown 12/05/2020 12/06/2020 6:12 AM CDT us Neo Tang MD LAB - PATHOLOGY/CYTOLOGY ORDER ESTRELLA Final Result DERMATOPATHOLOGY LABORATORY [facility] - Department of Dermatology [facility] Medicine [address] [place] [address], [address] Floor [address] [phone] documented in this encounter Visit Diagnoses Not on filedocumented in this encounter
--- OUTSIDE RECORDS SUMMARY | 2025-01-16 11:59 | XMS_ITS | Clinical Summary ---
Author Organization [facility] Address [address] [place] [address] Care Team Providers Care Office Nurse Practitioner Name Role Phone Unavailable Primary Care Provider Unavailabl e Source Comments [facility],non-owned Affiliates and Associated Physician Practices is amultiple site organization consisting of ambulatory clinics and hospital sitesin [place], [place], [place] and [place]. This disclosure is being madepursuant to the Care Everywhere program and may not contain all information available regarding this patient. Last updated 18.[facility] Encounters Date Type Department Care Team Description 12/07/2024 Lab Requisition [facility] - DermPath Lab [address] [facility] [place] [phone] Pineda Chavez MD Neoplasm of uncertain behavior [...] Health Maintenance Due Date Last Done Comments MEDICARE AWV 12 MONTHS 1950 HEPATITIS C SCREENING 04/05/1966 DTAP/TDAP/TD VACCINES (1 - Tdap) 1967 PNEUMOCOCCAL VACCINE 50+ (1 of 1 - PCV) 1998 ZOSTER VACCINE (1 of 2) 1998 Respiratory Syncytial Virus (RSV) Vaccine Pt: or over 60 yrs (1 - 1-dose 75+ series) 2023 COVID-19 VACCINE (1 - 2023-2 5 season) 2024 DEPRESSION SCREENING 08/09/2024 INFLUENZA VACCINE (Season Ended) 2025 HEPATITIS B [...] AM CDT) Case Report Dermatopathology Report Case: [id number] Authorizing Provider: Pineda Chavez MD Collected: 12/07/2024 12:00 AM Ordering Location: [facility] - Received: 12/11/2024 11:32 AM [...] specimen consists of a shave biopsy measuring 36o11f5 mm. Jar 0. 12:55 PM CDT DERMATOPATHOLOGY [...] characteristic determined by the Dermatopathology Laboratory at [facility], directed by Dr. Violetta Daniel. These tests need not be, and therefore are not, approved by the [place] Food and Drug Administration. The tests are used for clinical purposes. Billing Codes Specimen Charges Stain Charges 97795 1 12:55 PM CDT DERMATOPATHOLOGY LABORATORY Embedded Images 12:55 PM CDT DERMATOPATHOLOGY LABORATORY Pathology/Cytolog y TISSUE SPECIMEN FROM SKIN / Unknown 12/07/2024 12/11/2024 11:32 AM CDT Pineda Chavez MD LAB - PATHOLOGY/CYTOLOGY YAJAIRA NEGRON Final Result DERMATOPATHOLOGY LABORATORY [facility] - Department of Dermatology [address] [phone] from Last 3 Months Insurance MEDICARE ADV PPO
== END 2025-01-16 10:44 | disposition home or self-care (01) ==
PROVIDERS: PCP Physician Assistant Medical; Visit Provider Urology
DX: N20.0 Calculus of kidney (principal)
CPT/HCPCS: 74018

== ENCOUNTER 2025-01-23 09:48 | Outpatient (CLI) | payer OTHER, SELFPAY ==
[2025-01-23 10:39] LABS: Anion Gap 10 mmol/L (4-12); Blood Urea Nitrogen 22 mg/dL (9-20); Calcium 9.8 mg/dL (8.4-10.2); Carbon Dioxide 25 mmol/L (22-30); Chloride 102 mmol/L (98-107); Estimated Glomerular Filt Rate 51; Glucose 125 mg/dL (65-110); Potassium 4.2 mmol/L (3.4-5.0); Sodium 137 mmol/L (137-145)
--- OUTSIDE RECORDS SUMMARY | 2025-01-23 10:50 | XMS_ITS | Encounter Summary ---
Author Organization [facility] Address [address] [facility] [place] [address] Care Team Providers Care Vacuum Drier Operator Name Role Phone Unavailable Primary Care Provider Unavailabl e Encounter Details Date Type Department Care Team (Late st Contact Info) Description 04/11/2020 Lab Requisition [facility] DermPath Lab [address] [facility], [place] [phone] Neo Tang MD [address] [facility] [address] [place] [address] Social History Tobacco Use Types [...] AM CDT) Case Report Dermatopathology Report Case: [id number] Authorizing Provider: Neo Tang MD Collected: 04/10/2020 12:00 AM Ordering Location: [facility] DermPath Lab Received: 04/11/2020 06:52 AM Pathologist: Debra D eLeón MD Specimen: Skin, right lower leg 0 1:18 PM CDT DERMATOPATHOLOGY LABORATORY Final Diagnosis Specimen A. 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 Path # [id number]. 0 1:18 PM CDT DERMATOPATHOLOGY LABORATORY Gross Description Specimen A: Received is one formalin filled container labeled with the patient's name and designated right lower leg. The specimen consists of a shave biopsy measuring 4l1p6dh. Jar 0. 0 1:18 PM CDT DERMATOPATHOLOGY [...] determined by the Dermatopathology Laboratory at [facility], directed by Dr. Violetta Daniel. These tests need not be, and therefore are not, approved by the [place] Food and Drug Administration. The tests are used for clinical purposes. Billing Codes Specimen Charges Stain Charges 53455 1 0 1:18 PM CDT DERMATOPATHOLOGY LABORATORY Embedded Images 0 1:18 PM CDT DERMATOPATHOLOGY LABORATORY Pathology/Cytolog y TISSUE SPECIMEN FROM SKIN / Unknown 04/10/2020 04/11/2020 6:52 AM CDT Neo Tang MD LAB - PATHOLOGY/CYTOLOGY ORDER ESTRELLA Final Result DERMATOPATHOLOGY LABORATORY [facility] - Department of Dermatology [address], [address] [phone] documented in this encounter Visit Diagnoses Not on filedocumented in this encounter
--- OUTSIDE RECORDS SUMMARY | 2025-01-23 10:50 | XMS_ITS | Encounter Summary ---
Author Organization [facility] Address [address] [facility] [address] Care Team Providers Care Motion Picture Scene Builder Name Role Phone Unavailable Primary Care Provider Unavailabl e Encounter Details Date Type Department Care Team (Late st Contact Info) Description 05/15/2021 Lab Requisition [facility] DermPath Lab [address] [facility] [place] [phone] Neo Tang MD [address] [place] [address] Social History Tobacco Use Types [...] AM CDT) Case Report Dermatopathology Report Case: [id number] Authorizing Provider: Neo Tang MD Collected: 05/14/2021 12:00 AM Ordering Location: [facility] DermPath Lab Received: 05/15/2021 08:04 AM Pathologist: Debra De León MD Specimen: Skin, ant neck 3:16 PM CDT DERMATOPATHOLOGY LABORATORY Final Diagnosis Specimen A. 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 Path # [id number]. 3:16 PM CDT DERMATOPATHOLOGY LABORATORY Gross Description Specimen A: Received is one formalin filled container labeled with the patient's name and designated ant neck. The specimen consists of a shave biopsy measuring [id number]. Jar 0. 3:16 PM CDT DERMATOPATHOLOGY LABORATORY [...] characteristic determined by the Dermatopathology Laboratory at [facility], directed by Dr. Violetta Daniel. These tests need not be, and therefore are not, approved by the [place] Food and Drug Administration. The tests are used for clinical purposes. Billing Codes Specimen Charges Stain Charges 92785 1 3:16 PM CDT DERMATOPATHOLOGY LABORATORY Embedded Images 3:16 PM CDT DERMATOPATHOLOGY LABORATORY Pathology/Cytolog y TISSUE SPECIMEN FROM SKIN / Unknown 05/14/2021 05/15/2021 8:04 AM CDT Neo Tang MD LAB - PATHOLOGY/CYTOLOGY ORDER ESTRELLA Final Result DERMATOPATHOLOGY LABORATORY [facility] - Department of Dermatology [address], [address]rd [place] [address], [facility] [phone] documented in this encounter Visit Diagnoses Not on filedocumented in this encounter
--- OUTSIDE RECORDS SUMMARY | 2025-01-23 10:50 | XMS_ITS | Clinical Summary ---
Author Organization [facility] Address [address] [place] [address] Care Team Providers Care Asphalt Surface Heater Operator Name Role Phone Unavailable Primary Care Provider Unavailabl e Source Comments [facility],non-owned Affiliates and Associated Physician Practices is amultiple site organization consisting of ambulatory clinics and hospital sitesin [place], [place], [place]. This disclosure is being madepursuant to the Care Everywhere program and may not contain all information available regarding this patient. Last updated 18.[facility] Encounters Date Type Department Care Team Description 12/07/2024 Lab Requisition [facility] - DermPath Lab [address] [facility] [place] [phone] Pineda Chavez MD Neoplasm of uncertain behavior [...] AM CDT) Case Report Dermatopathology Report Case: [id number] Authorizing Provider: Pineda Chavez MD Collected: 12/07/2024 12:00 AM Ordering Location: [facility] - Received: 12/11/2024 11:32 [...] specimen consists of a shave biopsy measuring 18r49j2 mm. Jar 0. 12:55 PM CDT DERMATOPATHOLOGY [...] determined by the Dermatopathology Laboratory at [facility], directed by Dr. Violetta Daniel. These tests need not be, and therefore are not, approved by the [place] Food and Drug Administration. The tests are used for clinical purposes. Billing Codes Specimen Charges Stain Charges 64486 1 12:55 PM CDT DERMATOPATHOLOGY LABORATORY Embedded Images 12:55 PM CDT DERMATOPATHOLOGY LABORATORY Pathology/Cytolog y TISSUE SPECIMEN FROM SKIN / Unknown 12/07/2024 12/11/2024 11:32 AM CDT Pineda Chavez MD LAB - PATHOLOGY/CYTOLOGY YAJAIRA NEGRON Final Result DERMATOPATHOLOGY LABORATORY [facility] - Department of Dermatology [address] [phone] from Last 3 Months Insurance MEDICARE ADV PPO
--- OUTSIDE RECORDS SUMMARY | 2025-01-23 10:50 | XMS_ITS | Encounter Summary ---
Author Organization [facility] Address [address] [facility] [place] [address] Care Team Providers Care Cargo Inspector Name Role Phone Unavailable Primary Care Provider Unavailabl e Encounter Details Date Type Department Care Team (Late st Contact Info) Description 08/30/2020 Lab Requisition [facility] DermPath Lab [address] [facility] [place] [phone] Neo Tang MD [address] [place] [address] Social History Tobacco Use Types [...] Diagnosis Comments DERMATOPATHOLOGY Routine 08/29/2020 3:27 AM PSYCHOLOGIST EXPERIMENTAL documented in this encounter Results * DERMATOPATHOLOGY (08/29/2020 3:27 AM PSYCHOLOGIST EXPERIMENTAL) Case Report Dermatopathology Report Case: [id number] Authorizing Provider: Noe Tang MD Collected: 08/29/2020 03:27 AM Ordering Location: [facility] DermPath Lab Received: 08/30/2020 07:26 AM Pathologist: Constanza Castro MD Specimens: A) - Skin, frontal scalp B) - Skin, crown 1:20 PM PSYCHOLOGIST EXPERIMENTAL DERMATOPATHOLOGY LABORATORY Final Diagnosis Specimen A. SKIN, frontal scalp: HYPERPLASTIC (HYPERTROPHIC) ACTINIC KERATOSIS, LICHENOID (L57.0)= OVERLYING CUTANEOUS HORN (L85.8) Specimen B. SKIN, crown: HYPERPLASTIC (HYPERTROPHIC) ACTINIC KERATOSIS, LICHENOID (L57.0) OVERLYING CUTANEOUS HORN (L85.8) 1 1:20 PM [facility] DERMATOPATHOLOGY LABORATORY at 1320 PSYCHOLOGIST EXPERIMENTAL Clinical History A: SCCA vs AK. Path# [id number]. B: SCCA vs AK. Path# [id number]. 1 1:20 PM [facility] DERMATOPATHOLOGY LABORATORY Gross Description Specimen A: Received is one formalin filled container labeled with the patient's name and designated frontal scalp. The specimen consists of a shave biopsy measuring 37i69l3im. Jar 0+. Specimen B: Received is one formalin filled container labeled with the patient's name and designated crown. The specimen consists of a shave biopsy measuring 82h53p0if, bisected. Jar 0+. 1:20 PM [facility] DERMATOPATHOLOGY LABORATORY Microscopic Description Specimen [...] column of marked compact hyperkeratosis. 1:20 PM [facility] DERMATOPATHOLOGY LABORATORY Disclaimer An external [...] purposes. Billing Codes Specimen Charges Stain Charges 14329 11433 1 1 1 1:20 PM [facility] DERMATOPATHOLOGY LABORATORY Embedded Images 1:20 PM [facility] DERMATOPATHOLOGY LABORATORY Pathology/Cytology TISSUE SPECIMEN FROM SKIN / Unknown 08/29/2020 3:27 AM PSYCHOLOGIST EXPERIMENTAL 08/30/2020 7:26 AM PSYCHOLOGIST EXPERIMENTAL Miscellaneous samples (specimen) TISSUE SPECIMEN FROM SKIN / Unknown 08/29/2020 3:27 AM PSYCHOLOGIST EXPERIMENTAL 08/30/2020 7:26 AM PSYCHOLOGIST EXPERIMENTAL us Neo Tang MD LAB - PATHOLOGY/CYTOLOGY ORDER ESTRELLA Final Result DERMATOPATHOLOGY LABORATORY [facility] - Department of Dermatology [facility] Specialized Medicine [address] [place] [address], [address] [phone] documented in this encounter Visit Diagnoses Not on filedocumented in this encounter
--- OUTSIDE RECORDS SUMMARY | 2025-01-23 10:50 | XMS_ITS | Encounter Summary ---
Author Organization [facility] Address [address] [place] [address] Care Team Providers Care Crystal Slicer Name Role Phone Unavailable Primary Care Provider Unavailabl e Encounter Details Date Type Department Care Team (Late st Contact Info) Description 12/06/[address] [facility] DermPath Lab [address] [facility] [place] [phone] Neo Tang MD [address] [place] [address] Social History Tobacco Use Types [...] AM CDT) Case Report Dermatopathology Report Case: [id number] Authorizing Provider: Neo Tang MD Collected: 12/05/2020 12:00 AM Ordering Location: [facility] DermPath Lab Received: 12/06/2020 06:12 AM [...] Clinical History A: SCCA vs AK. Path# [id number]. B: SCCA vs AK. Path# [id number]. 1:45 PM CDT DERMATOPATHOLOGY LABORATORY Gross Description Specimen A: Received is one formalin filled container labeled with the patient's name and designated left dorsal hand. The specimen consists of a shave biopsy measuring [id number]. Jar 0. Specimen B: Received is one formalin filled container labeled with the patient's name and designated left postauricular hairline. The specimen consists of a shave biopsy measuring 4b2j5rh. Jar 0. 1:45 PM CDT DERMATOPATHOLOGY LABORATORY [...] characteristic determined by the Dermatopathology Laboratory at [facility], directed by Dr. Violetta Daniel. These tests need not be, and therefore are not, approved by the [place] Food and Drug Administration. The tests are used for clinical purposes. Billing Codes Specimen Charges Stain Charges 57356 45177 1 1 1 1:45 PM CDT DERMATOPATHOLOGY LABORATORY Embedded Images 1:45 PM CDT DERMATOPATHOLOGY LABORATORY Pathology/Cytology TISSUE SPECIMEN FROM SKIN / Unknown 12/05/2020 12/06/2020 6:12 AM CDT Miscellaneous samples (specimen) TISSUE SPECIMEN FROM SKIN / Unknown 12/05/2020 12/06/2020 6:12 AM CDT us Neo Tang MD LAB - PATHOLOGY/CYTOLOGY ORDER ESTRELLA Final Result DERMATOPATHOLOGY LABORATORY [facility] - Department of Dermatology [facility] Medicine [address] [place] [address], [address] [phone] documented in this encounter Visit Diagnoses Not on filedocumented in this encounter
--- OUTSIDE RECORDS SUMMARY | 2025-01-23 10:50 | XMS_ITS | Encounter Summary ---
Author Organization [facility] Address [address] [place] [address] Care Team Providers Care Ear Nose And Throat Specialist Name Role Phone Unavailable Primary Care Provider Unavailabl e Encounter Details Date Type Department Care Team (Late st Contact Info) Description 12/07/2024 Lab Requisition [facility] - DermPath Lab [address] [place] [phone] Pineda Chavez MD [facility] DERMATOLOGY [address] [place] [phone] Neoplasm of uncertain behavior of skin [...] AM CDT) Case Report Dermatopathology Report Case: [id number] Authorizing Provider: Pineda Chavez MD Collected: 12/07/2024 12:00 AM Ordering Location: [facility] - Received: 12/11/2024 11:32 AM DermPath Lab [...] specimen consists of a shave biopsy measuring 05o10f8 mm. Jar 0. 12:55 PM CDT DERMATOPATHOLOGY [...] characteristic determined by the Dermatopathology Laboratory at [facility], directed by Dr. Violetta Daniel. These tests need not be, and therefore are not, approved by the [place] Food and Drug Administration. The tests are used for clinical purposes. Billing Codes Specimen Charges Stain Charges 11652 1 12:55 PM CDT DERMATOPATHOLOGY LABORATORY Embedded Images 12:55 PM CDT DERMATOPATHOLOGY LABORATORY Pathology/Cytolog y TISSUE SPECIMEN FROM SKIN / Unknown 12/07/2024 12/11/2024 11:32 AM CDT us Pineda Chavez MD LAB - PATHOLOGY/CYTOLOGY YAJAIRA NEGRON Final Result DERMATOPATHOLOGY LABORATORY [facility] - Department of Dermatology [address], [address] [phone] documented in this encounter Visit Diagnoses Diagnosis Neoplasm of uncertain behavior of skin documented in this encounter
--- OUTSIDE RECORDS SUMMARY | 2025-01-23 10:50 | XMS_ITS | Encounter Summary ---
Author Organization [facility] Address [address] [facility] [place] [address] Care Team Providers Care Glass Cutter Hand Name Role Phone Unavailable Primary Care Provider Unavailabl e Encounter Details Date Type Department Care Team (Late st Contact Info) Description 05/10/2023 Lab Requisition [facility] - DermPath Lab [address] [facility] [place] [place] [phone] Neo Tang MD [address] [address] Social History Tobacco Use Types [...] AM CDT) Case Report Dermatopathology Report Case: [id number] Authorizing Provider: Neo Tang MD Collected: 05/10/2023 12:00 AM Ordering Location: [facility] DermPath Lab Received: 05/10/2023 04:27 PM Pathologist: Marian Dalal MD Specimen: Skin, left forearm 12:59 PM CDT DERMATOPATHOLOGY LABORATORY Final Diagnosis Specimen A. SKIN, left forearm: BENIGN VERRUCOUS KERATOSIS, INFLAMED (L82.1) 12:59 PM CDT DERMATOPATHOLOGY LABORATORY at 1259 CDT Clinical History SCCA vs AK. Path# [id number] 12:59 PM CDT DERMATOPATHOLOGY LABORATORY Gross Description [...] characteristic determined by the Dermatopathology Laboratory at [facility], directed by Dr. Violetta Daniel. These tests need not be, and therefore are not, approved by the [place] Food and Drug Administration. The tests are used for clinical purposes. Billing Codes Specimen Charges Stain Charges 55040 1 12:59 PM CDT DERMATOPATHOLOGY LABORATORY Embedded Images 12:59 PM CDT DERMATOPATHOLOGY LABORATORY Pathology/Cytolog y TISSUE SPECIMEN FROM SKIN / Unknown 05/10/2023 05/10/2023 4:27 PM CDT us Neo Tang MD LAB - PATHOLOGY/CYTOLOGY ORDER ESTRELLA Final Result DERMATOPATHOLOGY LABORATORY [facility] - Department of Dermatology [address] [place] [address], [facility] [phone] documented in this encounter Visit Diagnoses Not on filedocumented in this encounter
[2025-01-23 11:09] LABS: INR 3.3; Prothrombin Time 32.8 Seconds (11.1-14.7)
[2025-01-23 11:10] LABS: Partial Thromboplastin Time 57.6 Seconds (22.3-36.8)
== END 2025-01-23 09:49 | disposition home or self-care (01) ==
LOC: ANHSURGERY 09:52
PROVIDERS: Anesthesiology; PCP Physician Assistant Medical; Visit Provider Urology
DX: N20.0 Calculus of kidney (principal); N18.9 Chronic kidney disease, unspecified; E11.9 Type 2 diabetes mellitus without complications
CPT/HCPCS: 36415; 80048; 85610; 85730; 87086

== ENCOUNTER 2025-02-02 00:36 | Day surgery (SDC) | payer OTHER, SELFPAY ==
[2025-01-22 15:10] VITALS: BMI 33.6
--- NOTE | 2025-01-22 15:23 | PC.NURSE ---
Report to the Outpatient Waiting Room, entrance under the green pavilion located off [facility], at time ___1000am____ on date __02/01/25 . Planned Procedure Time: 12:00pm .? Time changes happen often and if your time is changed the preop area will call you the afternoon before. - You and your visitor will be asked to self-screen and do not enter if you have any COVID symptoms. Please call surgeon if you need to reschedule. - A mask is optional within the hospital at this time. Patients may have clear liquids (water, carbonated beverages, clear teas, apple juice) until 3 hours prior to surgery with a maximum of 20 ounces. - No food from midnight until time of surgery and no smoking, or chewing tobacco (or any form of nicotine). No chewing gum, candy or mints. (0900am) Take only the following medications with a SIP of water on the morning of surgery: ____Amlodipine, Gabapentin and Metoprolol. DO NOT STOP ANY OF YOUR OTHER PRESCRIPTION MEDICATIONS PRIOR TO SURGERY EXCEPT THE FOLLOWING Hold all Coumadin, Aspirin, vitamins and supplements for [address] Andrew Date to take last dose__01/23/25 Please no make-up, nail setswana, hairspray, perfume, deodorant, or body powder the day of surgery.? No jewelry (including any body piercings) or valuables the day of surgery, leave them at home.? Please take a shower or bath the night before, or the morning of, surgery with an antibacterial soap.?( Gold Dial) Wear comfortable, loose fitting clothing.? - Jewelry must be removed prior to entering the operating room.? Rings and piercings that are not removed may be cut off. - The hospital will not accept responsibility for valuables.? - Please leave all valuables, including medications, at home the day of surgery. If you are going home after surgery, a licensed local flatbed driver must drive you home.? - NO public transportation without another adult if you receive anesthesia. - We recommend that an adult stay with you for 24 hours following discharge. - We also recommend that you do not drive, make important decision, drink alcoholic beverages, or take any drugs that were not prescribed by your health care provider for at least 24 hours after your discharge time. Follow any additional instructions given to you from your surgeon. Telephone instructions given to __Patient and asked if any additional questions and then verbalized understanding. Patient advised to call surgeon office or pre surgery nurse liaison [phone] if any additional questions.
--- NOTE | 2025-01-26 15:44 | PC.NURSE ---
SURGERY RESCHEDULED FROM 02/01/25 TO 02/02/25 R/T EQUIPMENT AVAILABILITY. NO CHANGE IN PATIENT ASSESSMENT. PRE-OP INSTRUCTIONS WITH NEW DATE/TIME GIVEN. PT RELAYS UNDERSTANDING. Report to the Outpatient Waiting Room, entrance under the green pavilion located off [facility], at time __12:00PM on date ___02/02/25____. Planned Procedure Time: ___2:00PM .? Time changes happen often and if your time is changed the preop area will call you the afternoon before. - You and your visitor will be asked to self-screen and do not enter if you have any COVID symptoms. Please call surgeon if you need to reschedule. - A mask is optional within the hospital at this time. Patients may have clear liquids (water, carbonated beverages, clear teas, apple juice) until 3 hours prior to surgery (11:00AM) with a maximum of 20 ounces. - No food from midnight until time of surgery and no smoking, or chewing tobacco (or any form of nicotine). No chewing gum, candy or mints. Take only the following medications with a SIP of water on the morning of surgery: AMLODIPINE, GABAPENTIN, METOPROLOL DO NOT STOP ANY OF YOUR OTHER PRESCRIPTION MEDICATIONS PRIOR TO SURGERY EXCEPT THE FOLLOWING Medications to discontinue per physician ___HOLD COUMADIN, ASPIRIN AND VITAMINS/SUPPLEMENTS 7 DAYS PRE-OP PER DR HADDAD Date to take last dose 01/25/25 Please no make-up, nail indonesian, hairspray, perfume, deodorant, or body powder the day of surgery.? No jewelry (including any body piercings) or valuables the day of surgery, leave them at home.? Please take a shower or bath the night before, or the morning of, surgery with an antibacterial soap.? Wear comfortable, loose fitting clothing.? - Jewelry must be removed prior to entering the operating room.? Rings and piercings that are not removed may be cut off. - The hospital will not accept responsibility for valuables.? - Please leave all valuables, including medications, at home the day of surgery. If you are going home after surgery, a licensed truck driver flatbed must drive you home.? - NO public transportation without another adult if you receive anesthesia. - We recommend that an adult stay with you for 24 hours following discharge. - We also recommend that you do not drive, make important decision, drink alcoholic beverages, or take any drugs that were not prescribed by your health care provider for at least 24 hours after your discharge time. Follow any additional instructions given to you from your surgeon. Telephone instructions given to ___PATIENT and asked if any additional questions and then verbalized understanding. Patient advised to call surgeon office or pre surgery nurse liaison [phone] if any additional questions.
[2025-02-02] VITALS (9 sets, daily range): BP systolic 105–140; BP diastolic 72–88; PULSE 65–94; RESP 12–18; TEMP 36–36.2; O2SAT 94–100
--- NOTE | ~2025-02-02 | XR_ITS ---
Supine and upright views of the abdomen Clinical history: Lithotripsy COMPARISON: 01/16/2025 Findings: Bowel gas pattern is nonspecific. No evidence for obstruction or free air. Stable large lef t renal stones are present. Right ureteral stent in place. Possible stones the distal right ureteral stent. Cholecystectomy clips are present. Bilateral hip arthroplasties are present. Impression: Stable large left renal stones. Right ureteral stent in place. Possible stones at the distal right ureter along the stent. Bilateral hip arthroplasties. Reviewed, dictated and finalized at location . Impression: Stable large left renal stones. Right ureteral stent in place. Possible stones at the distal right ureter along the stent. Bilateral hip arthroplasties.
--- NOTE | 2025-02-02 06:21 | WPDHPUPDATE1 ---
History and Physical Update Update Date/Time: 02/02/25 06:21 History and Physical has been reviewed, including an updated exam of the patient. There are NO changes in the patient's condition. Risks, benefits, and alternatives have been discussed and questions answered. Patient agrees to proceed with procedure.
[2025-02-02] MEDS: LACTATED RINGERS 1,000 ML 30 ML IV CONT (07:05)
[2025-02-02 07:09] LABS: Glucose Point of Care 127 mg/dl (65-105)
[2025-02-02 07:42] LABS: INR 1.1; Prothrombin Time 13.9 Seconds (11.1-14.7)
[2025-02-02 07:43] LABS: Partial Thromboplastin Time 31.5 Seconds (22.3-36.8)
--- NOTE | 2025-02-02 08:01 | P.PNAN_ITS ---
Anes - Initial Pre Proc Eval Procedure: Operation Date: 02/02/25 08:30 Proposed Procedures p Left Extracorporeal Shock Wave Lithotripsy - Anish Andrew MD s Cystoscopy with Right Stent Removal, Left Ureteral Stent Placement - Anish Andrew MD Date/Time: 02/02/25 08:01 Surgeon: Anish Andrew MD Pre Op Diagnosis: Oneal Kidney Stones Patient Data Age: 74 Gender: M Height: 1.88 m Weight: 118.1 kg Last Vital Signs Temp 36.0 C L 02/02/25 06:53 Pulse 65 02/02/25 06:53 Resp 18 02/02/25 06:53 BP 140/88 02/02/25 06:53 Pulse Ox 100 02/02/25 06:53 O2 Del Method Room Air 02/02/25 06:53 Allergies Allergy/AdvReac Type Severity Reaction Status Date / Time No Known Allergies Allergy Unknown Verified 02/02/25 07:14 Home Medications ?Medication ?Instructions ?Recorded ?Confirmed ?Type aspirin 81 mg tablet,delayed 81 mg PO DAILY 07/07/22 02/02/25 History release (Adult Low Dose Aspirin) cholecalciferol (vitamin D3) 50 50 mcg PO DAILY 07/07/22 02/02/25 History mcg (2,000 unit) capsule mecobalamin (vitamin B12) 1,000 2,000 mcg sublingual DAILY 07/07/22 02/02/25 History mcg disintegrating tablet,sublingual multivitamin (Daily Multi-Vitamin 1 tablet PO DAILY 07/07/22 02/02/25 History tablet) omega-3 fatty acids-fish oil 360 1 cap PO DAILY 07/07/22 02/02/25 History mg-1,200 mg capsule (Fish Oil) lisinopril 20 mg tablet 20 mg PO DAILY 07/28/23 02/02/25 History warfarin 5 mg tablet 5 mg PO DAILY 07/28/23 02/02/25 History amlodipine 10 mg tablet 10 mg PO DAILY #90 tabs 08/21/24 02/02/25 Rx dapagliflozin propanediol 10 mg 10 mg PO QAM #90 tabs 08/21/24 02/02/25 Rx tablet (Farxiga) fenofibrate 160 mg tablet 160 mg PO DAILY #90 tabs 08/21/24 02/02/25 Rx hydrochlorothiazide 12.5 mg tablet 12.5 mg PO DAILY #90 tabs 08/21/24 02/02/25 Rx metoprolol tartrate 50 mg tablet 75 mg PO BID 08/21/24 02/02/25 History metformin 500 mg tablet,extended 500 mg PO BID 12/13/24 02/02/25 History release 24 hr metoprolol tartrate 25 mg tablet 25 mg PO Q12H 12/13/24 02/02/25 History gabapentin 300 mg capsule 300 mg PO TID #90 caps 01/24/25 02/02/25 Rx Laboratory Tests 02/02/25 02/02/25 06:59 07:07 PT 13.9 Seconds (11.1-14.7) INR 1.1 APTT 31.5 Seconds (22.3-36.8) POC Capillary Glucose 127 H mg/dl (65-105) Patient hx anesthesia problems: none Family hx anesthesia problems: none Results Review: All pre-operative results and documents have been reviewed as part of the pre- operative evaluation. [facility] Past Medical History Medical History Chronic kidney disease Gout Screening for prostate cancer Hypothyroidism PVC (premature ventricular contraction) Paroxysmal atrial flutter Paroxysmal A-fib Colon cancer SHELL (obstructive sleep apnea) Uses CPAP machine follows with ENT- [place] sinus sleep an allergy Diabetes Dyslipidemia Arthritis Hypertension Surgical History Surgical History Total knee replacement status left 08/28/2022 Status post catheter ablation of atrial fibrillation H/O colonoscopy 01/15/22 H/O colectomy History of cholecystectomy History of hip replacement bilateral Social History Social History Social History: 11/08/24 very confident with medical forms. Smoking packs per day: 0.5 Smoking cigarettes per day: 10.0 Years smoked: 10 Smoking pack-years: 5.00 Smoking status: Former smoker Tobacco type: cigarettes Smoking end date: 02/06/10 Alcohol intake: never Substance use: never Do You Feel Safe in your Home?: Yes Lack of Transportation: No Lack of Food: Never True Current Housing: I Have Housing Concerned About Future Housing: No Difficulty Paying Gas/Electric Bills: No Difficulty Paying for Meds: No Currently Unemployed: No Education: Associate Degree Difficulty w/ Childcare or Family Care: No Living arrangements: with family Additional living arrangements comments: [place] Occupation/Education: retired Spiritual care concerns: No Agree to blood products: Yes Ivan Schaeffer Final PreProcedure Day of Procedure 02/02/25 08:01 Patient weight: obese Heart: regular rate and rhythm Lungs: clear to auscultation Airway: Mallampati scale class II Neurological: alert and oriented Last oral intake: >/= 8 hours ASA classification: III Emergent: no Anesthetic plan: proceed Anesthesia type and monitoring: general LMA and standard monitoring Results Review: All pre-operative results and documents have been reviewed as part of the pre- operative evaluation. Informed Consent: The patient's anesthetic plan and its attendant risks and benefits were discussed with the patient/family/POA. Questions were solicited and answers pro vided to the satisfaction of the patient/family/POA.
[2025-02-02] MEDS: ceFAZolin 2 GM/D5W 50 ML 2 GM/50 ML BAG IVPB (08:30)
--- NOTE | 2025-02-02 08:53 | W.PM.PROC2 ---
Procedure Note - Detailed Date of Procedure 02/02/25 Pre-op Diagnosis Left Kidney Stones Post-op Diagnosis Same Procedure Performed Cystoscopy, right ureteral stent removal, left ureteral stent placement, left ESWL Surgeon Anish Andrew MD Anesthesia General Description of Procedure patient is brought to the operative suite was prepped draped in routine sterile fashion while supine position. Flexible cystoscopy was undertaken with a 16 F flexible cystoscope. 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 Bladder mucosa is normal. The tip of the indwelling right ureteral stent is grasped and it is removed with ease. A new 4.8 F variable length stent is placed over 0.035 in glidewire and has left renal pelvis with distal coil in his bladder. We then delivered 2500 shocks using the Dornier a Lithotripter at his 2 large in his pelvis. Shocks were undertaken power setting of 1-4. Drains Yes Packing No Complications No immediate complications Condition Stable Disposition PACU
[2025-02-02] MEDS: LIDOCAINE 2% GEL UROJET 10 ML PKG MUCOUS MEM (08:54)
[2025-02-02 09:29] LABS: Glucose Point of Care 114 mg/dl (65-105)
== END 2025-02-02 11:20 | disposition home or self-care (01) ==
PROVIDERS: PCP Physician Assistant Medical; Visit Provider Urology
PROC: (CPT 50590; principal; 2025-02-02 08:30)
PROC: (CPT 52310; 2025-02-02 08:30)
DX: N20.0 Calculus of kidney (principal); N40.0 Benign prostatic hyperplasia without lower urinary tract symptoms; E03.9 Hypothyroidism, unspecified; E11.22 Type 2 diabetes mellitus with diabetic chronic kidney disease; I12.9 Hypertensive chronic kidney disease with stage 1 through stage 4 chronic kidney disease, or unspecified chronic kidney disease; N18.9 Chronic kidney disease, unspecified; E78.00 Pure hypercholesterolemia, unspecified; I49.3 Ventricular premature depolarization; I48.92 Unspecified atrial flutter; I48.0 Paroxysmal atrial fibrillation; R31.0 Gross hematuria; M19.90 Unspecified osteoarthritis, unspecified site; G47.33 Obstructive sleep apnea (adult) (pediatric); E66.9 Obesity, unspecified; Z68.33 Body mass index [BMI] 33.0-33.9, adult; Z79.82 Long term (current) use of aspirin; Z79.84 Long term (current) use of oral hypoglycemic drugs; Z79.01 Long term (current) use of anticoagulants; Z99.89 Dependence on other enabling machines and devices; Z98.890 Other specified postprocedural states; Z90.49 Acquired absence of other specified parts of digestive tract; Z87.891 Personal history of nicotine dependence; Z85.038 Personal history of other malignant neoplasm of large intestine; Z82.49 Family history of ischemic heart disease and other diseases of the circulatory system
CPT/HCPCS: 50590; 52332; 36415; 74018; 82948; 85610; 85730; C1758; C1769; C2617; J0690; J2003; J2405; J2704; J3010; J7120

== ENCOUNTER 2025-02-23 13:51 | Outpatient (CLI) | payer OTHER, SELFPAY ==
--- NOTE | ~2025-02-23 | XR_ITS ---
Supine and upright views of the abdomen Clinical history: Renal stone COMPARISON: 02/02/2025 Findings: Bowel gas pattern is nonspecific. No evidence for obstruction or free air. Left ureteral st ent in place. Multiple left renal stones are present, measuring up to 13 mm in diameter. No definite right renal stone seen. Bilateral hip arthroplasties are present. Impression: Left renal stones, as above, with left ureteral stent in place. Reviewed, dictated and finalized at location . Impression: Left renal stones, as above, with left ureteral stent in place.
--- OUTSIDE RECORDS SUMMARY | 2025-02-23 13:56 | XMS_ITS | Encounter Summary ---
Author Organization [facility] Address [address] [place] [address] Care Team Providers Care Natural Resource Technician Name Role Phone Unavailable Primary Care Provider Unavailabl e Encounter Details Date Type Department Care Team (Late st Contact Info) Description 12/06/2020 Lab Requisition [facility] DermPath Lab [address] [facility] [place] [phone] Neo Tang MD [address] [address] Social History Tobacco Use Types [...] AM CDT) Case Report Dermatopathology Report Case: [id number] Authorizing Provider: Neo Tang MD Collected: 12/05/2020 12:00 AM Ordering Location: [facility] DermPath Lab Received: 12/06/2020 06:12 AM [...] Clinical History A: SCCA vs AK. Path# [id number]. B: SCCA vs AK. Path# [id number]. 1:45 PM CDT DERMATOPATHOLOGY LABORATORY Gross Description Specimen A: Received is one formalin filled container labeled with the patient's name and designated left dorsal hand. The specimen consists of a shave biopsy measuring 7x9e6wk. Jar 0. Specimen B: Received is one formalin filled container labeled with the patient's name and designated left postauricular hairline. The specimen consists of a shave biopsy measuring 1o1l3ae. Jar 0. 1:45 PM CDT DERMATOPATHOLOGY LABORATORY [...] purposes. Billing Codes Specimen Charges Stain Charges 64508 22998 1 1 1 1:45 PM CDT DERMATOPATHOLOGY LABORATORY Embedded Images 1:45 PM CDT DERMATOPATHOLOGY LABORATORY Pathology/Cytology TISSUE SPECIMEN FROM SKIN / Unknown 12/05/2020 12/06/2020 6:12 AM CDT Miscellaneous samples (specimen) TISSUE SPECIMEN FROM SKIN / Unknown 12/05/2020 12/06/2020 6:12 AM CDT us Neo Tang MD LAB - PATHOLOGY/CYTOLOGY ORDER ESTRELLA Final Result DERMATOPATHOLOGY LABORATORY [facility] - Department of Dermatology [facility] Medicine [address] [place] [address], [address] [phone] documented in this encounter Visit Diagnoses Not on filedocumented in this encounter
--- OUTSIDE RECORDS SUMMARY | 2025-02-23 13:56 | XMS_ITS | Encounter Summary ---
Author Organization [facility] Address [address] [facility] [place] [address] Care Team Providers Care Facilities Management Executive Name Role Phone Unavailable Primary Care Provider Unavailabl e Encounter Details Date Type Department Care Team (Late st Contact Info) Description 04/11/2020 Lab Requisition [facility] DermPath Lab [address] [facility], [place] [phone] Neo Tang MD [address] [place] [address] Social History Tobacco Use Types [...] AM CDT) Case Report Dermatopathology Report Case: [id number] Authorizing Provider: Neo Tang MD Collected: 04/10/2020 12:00 AM Ordering Location: [facility] DermPath Lab Received: 04/11/2020 06:52 AM Pathologist: Debra De León MD Specimen: Skin, right lower leg 0 1:18 PM CDT DERMATOPATHOLOGY LABORATORY Final Diagnosis Specimen A. 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 Path # [id number]. 0 1:18 PM CDT DERMATOPATHOLOGY LABORATORY Gross Description Specimen A: Received is one formalin filled container labeled with the patient's name and designated right lower leg. The specimen consists of a shave biopsy measuring 7u9d0ok. Jar 0. 0 1:18 PM CDT DERMATOPATHOLOGY [...] characteristic determined by the Dermatopathology Laboratory at [facility], directed by Dr. Violetta Daniel. These tests need not be, and therefore are not, approved by the [place] Food and Drug Administration. The tests are used for clinical purposes. Billing Codes Specimen Charges Stain Charges 92236 1 0 1:18 PM CDT DERMATOPATHOLOGY LABORATORY Embedded Images 0 1:18 PM CDT DERMATOPATHOLOGY LABORATORY Pathology/Cytolog y TISSUE SPECIMEN FROM SKIN / Unknown 04/10/2020 04/11/2020 6:52 AM CDT Neo Tang MD LAB - PATHOLOGY/CYTOLOGY ORDER ESTRELLA Final Result DERMATOPATHOLOGY LABORATORY [facility] - Department of Dermatology [address], [address] [phone] documented in this encounter Visit Diagnoses Not on filedocumented in this encounter
--- OUTSIDE RECORDS SUMMARY | 2025-02-23 13:56 | XMS_ITS | Encounter Summary ---
Author Organization [facility] Address [address] [facility] [place] [address] Care Team Providers Care Director Informatics Name Role Phone Unavailable Primary Care Provider Unavailabl e Encounter Details Date Type Department Care Team (Late st Contact Info) Description 05/15/2021 Lab Requisition [facility] DermPath Lab [address] [facility] [place] [phone] Neo Tang MD [address] [place] [address] Social History Tobacco Use Types [...] AM CDT) Case Report Dermatopathology Report Case: [id number] Authorizing Provider: Neo Tang MD Collected: 05/14/2021 12:00 AM Ordering Location: [facility] Derm[facility] Lab Received: 05/15/2021 08:04 AM Pathologist: Debra De León MD Specimen: Skin, ant neck 3:16 PM CDT DERMATOPATHOLOGY LABORATORY Final Diagnosis Specimen A. 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 Path # [id number]. 3:16 PM CDT DERMATOPATHOLOGY LABORATORY Gross Description Specimen A: Received is one formalin filled container labeled with the patient's name and designated ant neck. The specimen consists of a shave biopsy measuring 0m7e8nb. Jar 0. 3:16 PM CDT DERMATOPATHOLOGY LABORATORY [...] characteristic determined by the Dermatopathology Laboratory at [facility], directed by Dr. Violetta Daniel. These tests need not be, and therefore are not, approved by the [place] Food and Drug Administration. The tests are used for clinical purposes. Billing Codes Specimen Charges Stain Charges 04365 1 3:16 PM CDT DERMATOPATHOLOGY LABORATORY Embedded Images 3:16 PM CDT DERMATOPATHOLOGY LABORATORY Pathology/Cytolog y TISSUE SPECIMEN FROM SKIN / Unknown 05/14/2021 05/15/2021 8:04 AM CDT Neo Tang MD LAB - PATHOLOGY/CYTOLOGY ORDER ESTRELLA Final Result DERMATOPATHOLOGY LABORATORY [facility] - Department of Dermatology [address], [address]rd [place] [address], [facility] [phone] documented in this encounter Visit Diagnoses Not on filedocumented in this encounter
--- OUTSIDE RECORDS SUMMARY | 2025-02-23 13:56 | XMS_ITS | Encounter Summary ---
Author Organization [facility] Address [address] [place] [address] Care Team Providers Care Commercial Counsel Name Role Phone Unavailable Primary Care Provider Unavailabl e Encounter Details Date Type Department Care Team (Late st Contact Info) Description 12/07/2024 Lab Requisition [facility] - DermPath Lab [address] [place] [phone] Pineda Chavez MD [facility] DERMATOLOGY [address] [place] [phone] Neoplasm of uncertain behavior of skin [...] AM CDT) Case Report Dermatopathology Report Case: [id number] Authorizing Provider: Pineda Chavez MD Collected: 12/07/2024 12:00 AM Ordering Location: [facility] - Received: 12/11/2024 11:32 AM DermPath Lab [...] specimen consists of a shave biopsy measuring 69a74s8 mm. Jar 0. 12:55 PM CDT DERMATOPATHOLOGY [...] characteristic determined by the Dermatopathology Laboratory at [facility], directed by Dr. Violetta Daniel. These tests need not be, and therefore are not, approved by the [place] Food and Drug Administration. The tests are used for clinical purposes. Billing Codes Specimen Charges Stain Charges 34413 1 12:55 PM CDT DERMATOPATHOLOGY LABORATORY Embedded Images 12:55 PM CDT DERMATOPATHOLOGY LABORATORY Pathology/Cytolog y TISSUE SPECIMEN FROM SKIN / Unknown 12/07/2024 12/11/2024 11:32 AM CDT us Pineda Chavez MD LAB - PATHOLOGY/CYTOLOGY YAJAIRA NEGRON Final Result DERMATOPATHOLOGY LABORATORY [facility] - Department of Dermatology [address], [address] [phone] documented in this encounter Visit Diagnoses Diagnosis Neoplasm of uncertain behavior of skin documented in this encounter
--- OUTSIDE RECORDS SUMMARY | 2025-02-23 13:56 | XMS_ITS | Encounter Summary ---
Author Organization [facility] Address [address] [facility] [place] [address] Care Team Providers Care Tractor Operator Battery Name Role Phone Unavailable Primary Care Provider Unavailabl e Encounter Details Date Type Department Care Team (Late st Contact Info) Description 08/30/2020 Lab Requisition [facility] DermPath Lab [address] [facility] [place] [phone] Neo Tang MD [address] [place] [address] Social History Tobacco Use Types [...] Diagnosis Comments DERMATOPATHOLOGY Routine 08/29/2020 3:27 AM CHECKER AND PACKER documented in this encounter Results * DERMATOPATHOLOGY (08/29/2020 3:27 AM CHECKER AND PACKER) Case Report Dermatopathology Report Case: [id number] Authorizing Provider: Neo Tang MD Collected: 08/29/2020 03:27 AM Ordering Location: [facility] DermPath Lab Received: 08/30/2020 07:26 AM Pathologist: Constanza Castro MD Specimens: A) - Skin, frontal scalp B) - Skin, crown 1:20 PM [employer]ER [employer] PACKER DERMATOPATHOLOGY LABORATORY Final Diagnosis Specimen A. SKIN, frontal scalp: HYPERPLASTIC (HYPERTROPHIC) ACTINIC KERATOSIS, LICHENOID (L57.0)= OVERLYING CUTANEOUS HORN (L85.8) Specimen B. SKIN, crown: HYPERPLASTIC (HYPERTROPHIC) ACTINIC KERATOSIS, LICHENOID (L57.0) OVERLYING CUTANEOUS HORN (L85.8) 1 1:20 PM [facility] DERMATOPATHOLOGY LABORATORY at 1320 CHECKER AND PACKER Clinical History A: SCCA vs AK. Path# [id number]. B: SCCA vs AK. Path# [id number]. 1 1:20 PM [facility] DERMATOPATHOLOGY LABORATORY Gross Description Specimen A: Received is one formalin filled container labeled with the patient's name and designated frontal scalp. The specimen consists of a shave biopsy measuring 36q96a3pd. Jar 0+. Specimen B: Received is one formalin filled container labeled with the patient's name and designated crown. The specimen consists of a shave biopsy measuring 60y35j6bw, bisected. Jar 0+. 1:20 PM [facility] DERMATOPATHOLOGY LABORATORY Microscopic Description Specimen A. [...] column of marked compact hyperkeratosis. 1:20 PM [facility] DERMATOPATHOLOGY LABORATORY Disclaimer An external and internal positive and negative controls are appropriate for the histochemical, immunohistochemical and immunofluorescence stain(s) in this case (if any), except where stated explicitly. The performance characteristics of the stain(s) cited in this report were developed and its performance characteristic determined by the Dermatopathology Laboratory at [facility], directed by Dr. Violetta Daniel. These tests need not be, and therefore are not, approved by the [place] Food and Drug Administration. The tests are used for clinical purposes. Billing Codes Specimen Charges Stain Charges 60785 01567 1 1 1 1:20 PM [facility] DERMATOPATHOLOGY LABORATORY Embedded Images 1:20 PM [facility] DERMATOPATHOLOGY LABORATORY Pathology/Cytology TISSUE SPECIMEN FROM SKIN / Unknown 08/29/2020 3:27 AM CHECKER AND PACKER 08/30/2020 7:26 AM CHECKER AND PACKER Miscellaneous samples (specimen) TISSUE SPECIMEN FROM SKIN / Unknown 08/29/2020 3:27 AM CHECKER AND PACKER 08/30/2020 7:26 AM CHECKER AND PACKER us Neo Tang MD LAB - PATHOLOGY/CYTOLOGY ORDER ESTRELLA Final Result DERMATOPATHOLOGY LABORATORY [facility] - Department of Dermatology [facility] Specialized Medicine [address] [place] [address], [address] [phone] documented in this encounter Visit Diagnoses Not on filedocumented in this encounter
--- OUTSIDE RECORDS SUMMARY | 2025-02-23 13:56 | XMS_ITS | Encounter Summary ---
Author Organization [facility] Address [address] [facility] [place] [address] Care Team Providers Care Patrol Judge Name Role Phone Unavailable Primary Care Provider Unavailabl e Encounter Details Date Type Department Care Team (Late st Contact Info) Description 05/10/2023 Lab Requisition [facility] - DermPath Lab [address] [facility] [place] [phone] Neo Tang MD [address] [place] [address] Social History Tobacco Use Types [...] AM CDT) Case Report Dermatopathology Report Case: [id number] Authorizing Provider: Neo Tang MD Collected: 05/10/2023 12:00 AM Ordering Location: [facility] DermPath Lab Received: 05/10/2023 04:27 PM Pathologist: Marian Dalal MD Specimen: Skin, left forearm 12:59 PM CDT DERMATOPATHOLOGY LABORATORY Final Diagnosis Specimen A. SKIN, left forearm: BENIGN VERRUCOUS KERATOSIS, INFLAMED (L82.1) 12:59 PM CDT DERMATOPATHOLOGY LABORATORY at 1259 CDT Clinical History SCCA vs AK. Path# [id number] 12:59 PM CDT DERMATOPATHOLOGY LABORATORY Gross Description [...] characteristic determined by the Dermatopathology Laboratory at [facility], directed by Dr. Violetta Daniel. These tests need not be, and therefore are not, approved by the [place] Food and Drug Administration. The tests are used for clinical purposes. Billing Codes Specimen Charges Stain Charges 83431 1 12:59 PM CDT DERMATOPATHOLOGY LABORATORY Embedded Images 12:59 PM CDT DERMATOPATHOLOGY LABORATORY Pathology/Cytolog y TISSUE SPECIMEN FROM SKIN / Unknown 05/10/2023 05/10/2023 4:27 PM CDT us Neo Tang MD LAB - PATHOLOGY/CYTOLOGY ORDER ESTRELLA Final Result DERMATOPATHOLOGY LABORATORY [facility] - Department of Dermatology [address], [address] [place] [address], [facility] [phone] documented in this encounter Visit Diagnoses Not on filedocumented in this encounter
--- OUTSIDE RECORDS SUMMARY | 2025-02-23 13:56 | XMS_ITS | Clinical Summary ---
Author Organization [facility] Address [address] [place] [address] Care Team Providers Care Biomedical Engineering Technician Name Role Phone Unavailable Primary Care Provider Unavailabl e Source Comments [facility],non-owned Affiliates and Associated Physician Practices is amultiple site organization consisting of ambulatory clinics and hospital sitesin [place], [place], [place] and [place]. This disclosure is being madepursuant to the Care Everywhere program and may not contain all information available regarding this patient. Last updated 18.[facility] Encounters Date Type Department Care Team Description 12/07/2024 Lab Requisition [facility] - DermPath Lab [address] [facility] [place] [phone] Pineda Chavez MD Neoplasm of uncertain behavior [...] season) 2024 DEPRESSION SCREENING 08/09/2024 INFLUENZA VACCINE (#1) 2025 HEPATITIS B VACCINE Aged Out No [...] AM CDT) Case Report Dermatopathology Report Case: [id number] Authorizing Provider: Pineda Chavez MD Collected: 12/07/2024 12:00 AM Ordering Location: [facility] - Received: 12/11/2024 [...] specimen consists of a shave biopsy measuring 06v67y9 mm. Jar 0. 12:55 PM CDT DERMATOPATHOLOGY [...] determined by the Dermatopathology Laboratory at [facility], directed by Dr. Violetta Daniel. These tests need not be, and therefore are not, approved by the [place] Food and Drug Administration. The tests are used for clinical purposes. Billing Codes Specimen Charges Stain Charges 75226 1 12:55 PM CDT DERMATOPATHOLOGY LABORATORY Embedded Images 12:55 PM CDT DERMATOPATHOLOGY LABORATORY Pathology/Cytolog y TISSUE SPECIMEN FROM SKIN / Unknown 12/07/2024 12/11/2024 11:32 AM CDT Pineda Chavez MD LAB - PATHOLOGY/CYTOLOGY YAJAIRA NEGRON Final Result DERMATOPATHOLOGY LABORATORY [facility] - Department of Dermatology [address] [phone] from Last 3 Months Insurance MEDICARE ADV PPO
--- OUTSIDE RECORDS SUMMARY | 2025-02-23 13:57 | XMS_ITS | Encounter Summary ---
Author Organization [facility] Address [address] [place] [address] Care Team Providers Care Manager Immunology Name Role Phone Neto Schaefer MD Unavailable Goyo Beavers MD Primary Care Provider [phone] Poncho Troy MD Unavailable Yovani Mendoza MD Primary Care Provider + [phone] Janee NathC Primary Care Provider [phone] Encounter Details Date Type Department Care Team (Late st Contact Info) Description 08/23/2021 MyCMinefult Message [facility] [address] [place] [phone] Michelle Knox, ANP-BC [address] [place] [address] Test results ordered by primary Goyo Beavers MD Social History Tobacco Use Types Packs/Day Years Used Date Smoking Tobacco: Former Cigarettes Q uit: 2010 Smokeless Tobacco: Never Alcohol Use Standard Drinks/Week Comments No 0 (1 standard drink = 0.6 oz pur e alcohol) Sex and Gender Information Value Date Recorded Sex Assigned at Male 08/22/2024 10:32 AM PICK UP WORKER Legal Sex Male 11:40 PM CDT Gender [...] COVID-19? No / Unsure 08/22/2021 9:15 AM PICK UP WORKER documented as of this encounter Plan of Treatment Upcoming Encounters Date Type Department Care Team (Late st Contact Info) Description 03/08/2025 11:00 AM CDT Office Visit [place] [facility] [address] [place] [phone] Michelle Knox, ANP-BC [address] [address] documented as of this encounter Visit Diagnoses Not on filedocumented in this encounter Care Teams Manager Immunology Relationship Specialty Start Date End Date Goyo Beavers MD [address] [address] PCP - General INTERNAL MEDICINE 03/09/16 07/08/22 Yovani Mendoza MD [address] [place] [address] PCP - General FAMILY PRACTICE 07/09/22 08/27/24 Janee Nath PA-C [address] [place] [address] PCP - General 08/28/24 Neto Schaefer MD [facility] [address] [place], [place] [address] Will Cafeteria Counter Attendant CARDIOVASCULAR DISEASE 02/21/16 Poncho Troy MD Three [facility]. [address] [address] EP Cafeteria Counter Attendant CARDIOVASCULAR DISEASE 03/09/16 documented as of this encounter
--- OUTSIDE RECORDS SUMMARY | 2025-02-23 13:57 | XMS_ITS | Encounter Summary ---
Author Organization [facility] Address [address] [place] [address] Care Team Providers Care Operating Room Scheduler Name Role Phone Neto Schaefer MD Unavailable Goyo Beavers MD Primary Care Provider [phone] Poncho Troy MD Unavailable Yovani Mendoza MD Primary Care Provider + [phone] Janee Nath-C Primary Care Provider [phone] Encounter Details Date Type Department Care Team (Late st Contact Info) Description 09/03/2021 MyChart Message [facility] [address] [place] [phone] Michelle Knox, ANP-BC [facility]. [address] [place] [address] Switched Pharmacy to [facility] Social History Tobacco Use Types Packs/Day Years Used Date Smoking Tobacco: Former Cigarettes Q uit: 2010 Smokeless Tobacco: Never Alcohol Use Standard Drinks/Week Comments No 0 (1 standard drink = 0.6 oz pur e alcohol) Sex and Gender Information Value Date Recorded Sex Assigned at Male 08/22/2024 10:32 AM TRAFFIC OR SYSTEM DISPATCHER Legal Sex Male 11:40 PM CDT Gender [...] COVID-19? No / Unsure 08/22/2021 9:15 AM TRAFFIC OR SYSTEM DISPATCHER documented as of this encounter Plan of Treatment Upcoming Encounters Date Type Department Care Team (Late st Contact Info) Description 03/08/2025 11:00 AM CDT Office Visit [place] [facility] [address] [place] [phone] Michelle Knox, ANP-BC [address] [address] documented as of this encounter Visit Diagnoses Not on filedocumented in this encounter Care Teams Operating Room Scheduler Relationship Specialty Start Date End Date Goyo Beavers MD [address] [address] PCP - General INTERNAL MEDICINE 03/09/16 07/08/22 Yovani Mendoza MD [address] [place] [address] PCP - General FAMILY PRACTICE 07/09/22 08/27/24 Janee Nath PA-C [address] [place] [address] PCP - General 08/28/24 Neto Schaefer MD [facility] [address] [place], [place] [address] Will Soaking Tank Worker CARDIOVASCULAR DISEASE 02/21/16 Poncho Troy MD Three [facility]. [address] [address] EP Soaking Tank Worker CARDIOVASCULAR DISEASE 03/09/16 documented as of this encounter
--- OUTSIDE RECORDS SUMMARY | 2025-02-23 13:57 | XMS_ITS | Encounter Summary ---
Author Organization [facility] Address [address] [place] [address] Care Team Providers Care Assembler Insulator Name Role Phone Neto Schaefer MD Unavailable Poncho Troy MD Unavailable Janee Nath PA-C Primary Care Provider [phone] Reason for Visit * Reason Onset Date Comments Anticoagulation 02/22/2025 protime Encounter Details Date Type Department Care Team (Latest Contact Info) Description 02/22/2025 Anti-Coag Telephone Call [facility] THREE [address] [address] Vibha Anna RN Anticoagulation (protime) Social History Tobacco Use Types Packs/Day Years Used Date Smoking Tobacco: Former Cigarettes Q uit: 2010 Smokeless Tobacco: Never Alcohol Use Standard Drinks/Week Comments No 0 (1 standard drink = 0.6 oz pur e alcohol) Sex and Gender Information Value Date Recorded Sex Assigned at Male 08/22/2024 10:32 AM ADVERTISING WRITER Legal Sex Male 11:40 PM CDT Gender Identity Not on file Sexual Orientation Not on file 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 documented in this encounter Plan of Treatment Upcoming Encounters Date Type Department Care Team (Late st Contact Info) Description 03/08/2025 11:00 AM CDT Office Visit [place] [facility] [address] [place] [phone] Michelle Knox, ANP-BC [facility]. [address] [address] documented as of this encounter Visit Diagnoses Not on filedocumented in this encounter Care Teams Assembler Insulator Relationship Specialty Start Date End Date Janee Nath, PA-C [address] [place], [place] [address] [place] [address] PCP - General 08/28/24 Neto Schaefer MD [facility]. [facility] [address] [place] [address] [place] Ankle Patch Molder CARDIOVASCULAR DISEASE 02/21/16 Poncho Troy MD [facility]. [facility] [address] [place], [place] [address] EP Ankle Patch Molder CARDIOVASCULAR DISEASE 03/09/16 documented as of this encounter
--- OUTSIDE RECORDS SUMMARY | 2025-02-23 13:57 | XMS_ITS | Encounter Summary ---
Author Organization [facility] Address [address] [place] [address] Care Team Providers Care Sawmill Or Timber Yard Worker Name Role Phone Neto Schaefer MD Unavailable Goyo Beavers MD Primary Care Provider [phone] Poncho Troy MD Unavailable Bakari Olson MD Primary Care Provider [phone] Yovani Mendoza MD Primary Care Provider [phone] Janee Nath PA-C Primary Care Provider + [phone] Encounter Details Date Type Department Care Team (Late st Contact Info) Description 02/21/2016 Abstract [facility] AT [address] [address] Janeth Cook MA Social History Tobacco Use Types Packs/Day Years Used Date Smoking Tobacco: Former Sex and Gender Information Value Date Recorded Sex Assigned at Male 08/22/2024 10:32 AM SHEEP STICKER Legal Sex Male 11:40 PM CDT Gender Identity Not on file Sexual Orientation Not on file documented as of this encounter Plan of Treatment Upcoming Encounters Date Type Department Care Team (Late st Contact Info) Description 03/08/2025 11:00 AM CDT Office Visit [facility] [phone] Michelle Knox, ANP-BC Three [facility]. [facility] [address] [place], [place] [id number] documented as of this encounter Procedures Procedure [...] on filedocumented in this encounter Care Teams Sawmill Or Timber Yard Worker Relationship Specialty Start Date End Date Goyo Beavers MD [place] [place] [facility]. [facility] [address] [place] [address] PCP - General INTERNAL MEDICINE 03/09/16 07/08/22 [place] [address] [address] [facility] [address] [place] [address] PCP - General 04/19/14 03/08/16 Yovani Mendoza MD [facility] [place] [address] PCP - General FAMILY PRACTICE 07/09/22 08/27/24 Janee Nath PA-C [address] [place] [address] [address] [place] [address] PCP - General 08/28/24 Neto Schaefer MD [address] [facility] [address] [place] [address] [place] Baggage Porter CARDIOVASCULAR DISEASE 02/21/16 Poncho Troy MD [address] [facility] [address] [place], [place] [phone] [place] Station Baggage Porter CARDIOVASCULAR DISEASE 03/09/16 documented as of this encounter
--- OUTSIDE RECORDS SUMMARY | 2025-02-23 13:57 | XMS_ITS | Encounter Summary ---
Author Organization [facility] Address [address] [place] [address] Care Team Providers Care Pest Controller Assistant Name Role Phone Neto Schaefer MD Unavailable Goyo Beavers MD Primary Care Provider [phone] Poncho Troy MD Unavailable Yovani Mendoza MD Primary Care Provider [phone] Janee Nath PA-C Primary Care Provider [phone] Encounter Details Date Type Department Care Team (Late st Contact Info) Description 11/23/2018 Abstract [facility] at [address] [address] Janeth Cook MA Social History Tobacco Use Types Packs/Day Years Used Date Smoking Tobacco: Former Cigarettes Q uit: 2010 Smokeless Tobacco: Never Alcohol Use Standard Drinks/Week Comments No 0 (1 standard drink = 0.6 oz pur e alcohol) Sex and Gender Information Value Date Recorded Sex Assigned at Male 08/22/2024 10:32 AM PLANER STONE Legal Sex Male 11:40 PM CDT Gender Identity Not on file Sexual Orientation Not on file 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 [facility] [address] [place] [address] documented as of this encounter Procedures Procedure [...] Final Result * COMPREHENSIVE METABOLIC PANEL (07/27/2019) [facility] SODIUM S/P/B 141 134 - 144 POTASSIUM [...] LABORATORY Final Result * LIPID PANEL (07/17/2019) [facility] CHOLESTEROL 190 100 - 199 HDL 35 [...] on filedocumented in this encounter Care Teams Pest Controller Assistant Relationship Specialty Start Date End Date Goyo Beavers MD [facility]. [address] [address] PCP - General INTERNAL MEDICINE 03/09/16 07/08/22 Yovani Mendoza MD [address] [place] [address] PCP - General FAMILY PRACTICE 07/09/22 08/27/24 Janee Nath PA-C [address] [place] [address] PCP - General 08/28/24 Neto Schaefer MD [facility]. [address] [address] [place] Allergist Immunologist CARDIOVASCULAR DISEASE 02/21/16 Poncho Troy MD [facility]. [place] [id number] [place] [address] [place] Allergist Immunologist CARDIOVASCULAR DISEASE 03/09/16 documented as of this encounter
--- OUTSIDE RECORDS SUMMARY | 2025-02-23 13:57 | XMS_ITS | Encounter Summary ---
Author Organization [facility] Address [address] [place] [address] Care Team Providers Care Senior Financial Accountant Name Role Phone Neto Schaefer MD Unavailable Goyo Beavers MD Primary Care Provider [phone] Poncho Troy MD Unavailable Yovani Mendoza MD Primary Care Provider [phone] Janee Nath PA-C Primary Care Provider [phone] Encounter Details Date Type Department Care Team (Late st Contact Info) Description 04/22/2018 Abstract [facility] at [address] [address] Janeth Cook MA Social History Tobacco Use Types Packs/Day Years Used Date Smoking Tobacco: Former Cigarettes Q uit: 2010 Smokeless Tobacco: Never Alcohol Use Standard Drinks/Week Comments No 0 (1 standard drink = 0.6 oz pur e alcohol) Sex and Gender Information Value Date Recorded Sex Assigned at Male 08/22/2024 10:32 AM LOCOMOTIVE SUPERVISOR Legal Sex Male 11:40 PM CDT Gender Identity Not on file Sexual Orientation Not on file 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 [facility] [address] [place] [address] documented as of this encounter Procedures Procedure [...] on filedocumented in this encounter Care Teams Senior Financial Accountant Relationship Specialty Start Date End Date Goyo Beavers MD [address] [address] PCP - General INTERNAL MEDICINE 03/09/16 07/08/22 Yovani Mendoza MD [address] [place] [id number] PCP - General FAMILY PRACTICE 07/09/22 08/27/24 Janee Nath PA-C [address] [place] [id number] PCP - General 08/28/24 Neto [facility]efer MD [facility] [address] [phone] [place] Machine Filler Shredder CARDIOVASCULAR DISEASE 02/21/16 Poncho Troy MD [facility] [address] [id number] [place] Machine Filler Shredder CARDIOVASCULAR DISEASE 03/09/16 documented as of this encounter
--- OUTSIDE RECORDS SUMMARY | 2025-02-23 13:57 | XMS_ITS | Encounter Summary ---
Author Organization [facility] Address [address] [place] [address] Care Team Providers Care Improvement Engineer Name Role Phone Neto Schaefer MD Unavailable Poncho Troy MD Unavailable Janee Nath PA-C Primary Care Provider [phone] Encounter Details Date Type Department Care Team (Late st Contact Info) Description 02/22/2025 9:40 AM CDT Hospital Encounter [facility] [address] [place], [place] [phone] Neto Schaefer MD [address] [address] Social History Tobacco Use Types Packs/Day Years Used Date Smoking Tobacco: Former Cigarettes Q uit: 2010 Smokeless Tobacco: Never Alcohol Use Standard Drinks/Week Comments No 0 (1 standard drink = 0.6 oz pur e alcohol) Sex and Gender Information Value Date Recorded Sex Assigned at Male 08/22/2024 10:32 AM COTTON AGENT Legal Sex Male 11:40 PM CDT Gender Identity Not on file Sexual Orientation Not on file 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 [facility] [address] [place] [address] documented as of this encounter Procedures Procedure Name Priority Date/Time Associated Diagnosis Comments PROTHROMBIN TIME, FINGERSTICK Routine 02/22/2025 9:42 AM CDT Paroxysmal atrial fibrillation ([facility] HHS/HCC) FDC (current) use of anticoagulants documented in this encounter Results * (ABNORMAL) PROTIME/INR, FINGERSTICK (02/22/2025 9:42 AM CDT) PROTIME WHOLE BLOOD 26.6(H) 12.0 - 14.5 SEC 02/22/2025 9:58 AM CDT [facility] INR WHOLE BLOOD 2.2(H) 0.9 - 1.1 9:58 AM CDT [facility] Comment: Recommended INR Therapeutic Goals: 2.0-3.0 Routine Therapy 2.5-3.5 Mechanical Prosthetic Valves (High Risk) TESTING PERFORMED ON POINT OF CARE VALDEZ COAGUCHECK ANALYZER. NOTE: Heparin and Low molecular weight heparins can affect results at various INR levels. If patient is currently on these medications, an alternate method of coagulation testing is strongly recommended. 02/22/2025 9:42 AM CDT us Neto Schaefer MD LABORATORY Final Result [facility] [address] [place] [address], documented in this encounter Visit Diagnoses Diagnosis Paroxysmal atrial fibrillation ([facility] HHS/HCC) Atrial fibrillation FDC (current) use of anticoagulants Long-term (current) use of anticoagulants documented in this encounter Care Teams Improvement Engineer Relationship Specialty Start Date End Date Janee Nath PA-C [address] [place] [address] [address] [place] [address] PCP - General 08/28/24 Neto Schaefer MD [address] [address] Forest Repossession Agent CARDIOVASCULAR DISEASE 02/21/16 Poncho Troy MD [address] [facility] [address] [place], [place] [id number] Repossession Agent CARDIOVASCULAR DISEASE 03/09/16 documented as of this encounter
--- OUTSIDE RECORDS SUMMARY | 2025-02-23 13:57 | XMS_ITS | Clinical Summary ---
Author Organization [facility] Address [address] [place] [address] Care Team Providers Care In Shop Service Technician Name Role Phone Neto Schaefer MD Unavailable Poncho Troy MD Unavailable Jose Kilgore PA-C Primary Care Provider [phone]- [phone] Allergies No known active allergies Medications aspirin [...] 100 mcg by mouth daily. 6 Active [place]-3 Fatty Acids (OMEGA-3 FISH OIL) 1200 MG Cap Take 1,200 mg by mouth daily. 6 Active HYDROCHLOROTHIAZ MICHAEL 12.5 MG tablet TAKE 1 TABLET BY MOUTH DAILY 90 tablet 1 9 Active Qszx-Msmfj-TLI-B oswellia-Vit D (GLUCOSAMINE CHONDROITIN + D3 OR) [...] lisinopril (PRINIVIL) 20 MG tabletIndication s:Essential hypertension Take 1 tablet (20 mg total) by mouth daily. 90 tablet 1 5 Active metoprolol tartrate (LOPRESSOR) 25 MG tabletIndication s:Essential hypertension Take 1 tablet (25 mg total) by mouth 2 (two) times daily. Take with a 50mg tab twice a day to make a total of 75mg BID 180 tablet 1 5 Active metoprolol tartrate (LOPRESSOR) 50 MG tabletIndication s:Essential hypertension Take 1 tablet (50 mg total) by mouth 2 (two) times daily. Take with 25mg tablet to equal 75mg twice a day 180 tablet 1 5 Active warfarin (COUMADIN) 5 MG tabletIndication s:Paroxysmal atrial fibrillation ([facility]/HCC HHS/HCC) NEW DOSE: Take 1/2 tablet (2.5mg total) by mouth on Tuesdays, then take 1 tablet (5mg total) all the rest. 90 tablet 5 Active Active Problems Problem Noted Date Diagnosed Date Diverticulosis 01/15/2022 Rectal polyp 01/15/2022 Internal hemorrhoid 01/15/2022 Skin tags, anus or rectum 01/15/2022 Essential hypertension 09/09/2017 PVC (premature ventricular contraction) 09/03/19 17 Dyslipidemia 09/03/2016 Coronary artery calcification seen on CT scan Paroxysmal atrial fibrillation (CMS/HCC HHS/HCC) Obstructive sleep apnea chandra stephenie with continuous positive airway pressure (CPAP) Diabetes mellitus (CMS/HCC HHS/HCC) Resolved Problems Problem Noted Date Diagnosed Date Resolved Date Coronary artery disease invo lving king salmon coronary artery of king salmon heart without angina pectoris 09/03/2016 09/07/2017 S/P ablation of atrial fibrillation 04/03/2016 09/07/2017 PAF (paroxysmal atrial fibri llation) ([facility]) 01/22/2016 09/07/2017 CAD (coronary artery disease) 09/07/2017 Encounters Date Type Department Care Team Description 02/22/2025 9:40 AM CDT Hospital Encounter [address] [address] Neto Schaefer MD 02/22/2025 Anti-Coag Telephone Call [facility], [place] [address] [place] [address] Vibha Anna RN Anticoagulation (protime) 02/22/2025 Travel 01/24/2025 Telephone [facility], [place] [address] [place] [address] Carolyn Anderson [facility] Refill Request (Lisinopril, metoprolol n warfarin) 01/19/2025 10:21 AM CDT - 01/19/2025 11:59 PM CDT Hospital Encounter [address] [address] Neto Schaefer MD Discharge Disposition: Home or Self Care (Routine Discharge) 01/19/2025 Anti-Coag Telephone Call [facility], [place] [address] [place] [address] Mireille Harding RN Anticoagulation (INR) 01/19/2025 Travel 01/05/2025 8:50 AM CDT - 01/05/2025 11:59 PM CDT Hospital Encounter [address] [place] [address] Neto Schaefer MD Discharge Disposition: Home or Self Care (Routine Discharge) 01/05/2025 Anti-Coag Telephone Call [facility], [facility] [address] [place] [address] Vibha Anna RN Anticoagulation (protime) 01/05/2025 Travel 12/29/2024 Anti-Coag Telephone Call [facility], [address] [address] Mireille Harding RN Anticoagulation 12/28/2024 Telephone [facility] [address] [address] Neto Schaefer MD Refill Request (METOPROLOL WARFARIN) 12/18/2024 Telephone [facility] [address] [address] Neto Schaefer MD Surgical Clearance (CARDIAC CLEARANCE REQUEST FROM DR. 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 Not on file Not on file Not on file Last Filed Vital Signs Vital Sign Reading Time Taken Comments Blood Pressure 130/76 08/31/2024 2:46 PM SENIOR ADMINISTRATOR SUPPORT Pulse 85 08/31/2024 2:46 PM SENIOR ADMINISTRATOR SUPPORT Temperature 36.7 C (98.1 F) 02/10/2022 3:31 PM CDT Respiratory Rate 16 01/15/2022 9:10 AM CDT Oxygen Saturation 98% 08/31/2024 2:46 PM SENIOR ADMINISTRATOR SUPPORT Inhaled Oxygen Concentration - - Weight 117.9 kg (260 lb) 08/31/2024 2:46 PM SENIOR ADMINISTRATOR SUPPORT Height 188 cm (6' 2) 08/31/2024 2:46 PM SENIOR ADMINISTRATOR SUPPORT Body Mass Index 33.38 08/31/2024 2:46 PM SENIOR ADMINISTRATOR SUPPORT Plan of Treatment Upcoming Encounters Date Type Department Care Team (Late st Contact Info) Description 03/08/2025 11:00 AM CDT Office Visit [facility] [address] [place] [phone] Michelle Knox, ANP-BC [facility]. 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 PROTHROMBIN TIME, FINGERSTICK Routine 01/19/2025 10:53 AM CDT Paroxysmal atrial fibrillation (CMS/HCC HHS/HCC) 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 PROTHROMBIN TIME, FINGERSTICK Routine 01/05/2025 8:57 AM CDT Paroxysmal atrial fibrillation (CMS/HCC HHS/HCC) alf (current) use of anticoagulants PROTHROMBIN TIME, FINGERSTICK Routine 12/01/2024 11:09 AM CDT Paroxysmal atrial fibrillation (CMS/HCC HHS/HCC) 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 CT ABD+PEL WO CON Routine 11/10/2024 4:1 4 PM CDT Hematuria, unspecified LIPID PANEL Routine 07/20/2024 9:06 AM SENIOR ADMINISTRATOR SUPPORT Hyperlipemia Type 2 diabetes mellitus without complications ([facility]/HCC HHS/HCC) Hypertension Encounter for screening for malignant neoplasm of prostate HEMOGLOBIN, GLYCOSYLATED Routine 07/20/2024 9:06 AM SENIOR ADMINISTRATOR SUPPORT Hyperlipemia Type 2 diabetes mellitus without complications (CMS/HCC HHS/HCC) Hypertension Encounter for screening for malignant neoplasm of prostate COLONOSCOPY Routine 01/15/2022 6:27 AM CDT from Last 3 Months or Most Recently Relevant to Health Maintenance Results * (ABNORMAL) PROTIME/INR, FINGERSTICK (02/22/2025 9:42 AM CDT) Only the most recent of4 resultswithin the time period is included. PROTIME WHOLE BLOOD 26.6(H) 12.0 - 14.5 SEC 02/22/2025 9:58 AM CDT [facility] INR WHOLE BLOOD 2.2(H) 0.9 - 1.1 9:58 AM CDT [facility] Comment: Recommended INR Therapeutic Goals: 2.0-3.0 Routine Therapy 2.5-3.5 Mechanical Prosthetic Valves (High Risk) TESTING PERFORMED ON POINT OF CARE VALDEZ KashGUCHECK ANALYZER. NOTE: Heparin and Low molecular weight heparins can affect results at various INR levels. If patient is currently on these medications, an alternate method of coagulation testing is strongly recommended. 02/22/2025 9:42 AM CDT us Neto Schaefer MD LABORATORY Final Result [facility] [address] [place] [address], [place] [phone] * CT ABD+PEL WO CON (11/10/2024 4:14 PM CDT) Anatomical Region Laterality Modality Abdomen Computed Tomogra phy 11/12/2024 12:2 0 PM CDT Addenda Addendum by Nick Nathan MD on 11/12/2024 12:47 PM CDT [facility] [address] [place] [address] Addendum: The renal cyst described in impression [...] 12:20 PM Narrative 11/12/2024 12:32 PM CDT [place] [id number] [facility] [place] [address] Examination: CT abdomen and pelvis without IV [...] Procedure Note Nick Nathan MD - 11/12/2024 [facility] [address] [facility] [place] [address] Examination: CT abdomen and pelvis without IV [...] By: Nick Nathan MD, 11/12/2024 12:20 PM Jose Kilgore PA-C CT Edited Res ult - Final * (ABNORMAL) HEMOGLOBIN, GLYCOSYLATED (07/20/2024 9:06 AM SENIOR ADMINISTRATOR SUPPORT) HGB A1C 5.9(H) <5.7 % 07/20/2024 4:58 PM SENIOR ADMINISTRATOR SUPPORT [facility] Comment: ADA GUIDELINES 2010 5.7 TO 6.4% INCREASED RISK OF DIABETES > OR = 6.5% CONSISTENT WITH DIABETES ESTIMATED AVG GLUCOSE 123 mg/dL 07/20/2024 4:58 PM SENIOR ADMINISTRATOR SUPPORT [facility] 07/20/2024 9:06 AM SENIOR ADMINISTRATOR SUPPORT us Yovani Mendoza MD LABORATORY Final Res ult [facility] [address] [place] [address], [place] [phone] * (ABNORMAL) LIPID PANEL (07/20/2024 9:06 AM SENIOR ADMINISTRATOR SUPPORT) CHOLESTEROL 158 <200 MG/DL 07/20/2024 11:21 AM [facility] TRIGLYCERIDES 223(H) <150 MG/DL 07/20/2024 11:21 AM [facility] HDL 39(L) >40.0 MG/DL 07/20/2024 11:21 AM [facility] LDL (CALCULATED) 74 <100 MG/DL 07/20/2024 11:21 AM [facility] NON HDL CHOLESTEROL 119 <130 MG/DL 07/20/2024 11:21 AM [facility] Comment: NOTE: WHEN THE TRIGLYCERIDES ARE >200 mg/dL, NON HDL C IS A SECONDARY TARGET OF THERAPY, WITH A GOAL 30 mg/dL HIGHER THAN THE IDENTIFIED LDL C GOAL. CHOL/HDL RATIO 4.1 0.0 - 4.5 07/20/2024 11:21 AM [facility] VLDL CALCULATION 45 5 - 55 MG/DL 07/20/2024 11:21 AM [facility] LIPID INTERPRETATION 07/20/2024 11:21 AM [facility] Comment: NIH CONCENSUS REPORT RECOMMENDATIONS: ADULT CHILD LOW RISK: CHOLESTEROL <200 <170 TRIGLYCERIDE <150 --- HDL >=60 --- LDL <100 <110 BORDERLINE: CHOLESTEROL 200-239 170-199 TRIGLYCERIDE 150-199 --- HDL 40-59 --- LDL 100-159 110-129 HIGH RISK: CHOLESTEROL >=240 >=200 TRIGLYCERIDE >=200 --- HDL <40 --- LDL >=160 >=130 07/20/2024 9:06 AM [facility] us Yovani Mendoza MD LABORATORY Final Res ult [facility] [address] [place], [place] [address] [phone] from Last 3 Months or Most Recently Relevant to Health Maintenance Insurance [employer] Advance Directives Documents on File Type Date Recorded Patient Channel Development Manager Expl anation Advance Directives and Living Will 08/04/2019 4:12 PM 10/23/18 POWER OF ATTENDANT HONOR BAR Advance Directives and Living Will 09/19/2018 12:00 AM POWER OF ATTENDANT HONOR BAR FO R HEALTH CARE Advance Directives and Living Will 08/03/2018 12:00 AM POWER OF ATTENDANT HONOR BAR FO R HEALTH CARE Advance Directives and Living Will 06/21/2018 12:00 AM POWER OF ATTENDANT HONOR BAR FO R HEALTH CARE Advance Directives and Living Will 06/21/2018 12:00 AM POWER OF ATTENDANT HONOR BAR FO R HEALTH CARE Advance Directives and Living Will 04/08/2018 12:00 AM POWER OF ATTENDANT HONOR BAR FO R HEALTH CARE Advance Directives and Living Will 04/08/2018 12:00 AM POWER OF ATTENDANT HONOR BAR FO R HEALTH CARE Advance Directives and Living Will 03/22/2018 12:00 AM POWER OF ATTENDANT HONOR BAR FO R HEALTH CARE Advance Directives and Living Will 03/22/2018 12:00 AM POWER OF ATTENDANT HONOR BAR FO R HEALTH CARE Advance Directives and Living Will 02/01/2018 12:00 AM POWER OF ATTENDANT HONOR BAR FO R HEALTH CARE Advance Directives and Living Will 02/01/2018 12:00 AM POWER OF ATTENDANT HONOR BAR FO R HEALTH CARE Advance Directives and Living Will 12/14/2017 12:00 AM POWER OF ATTENDANT HONOR BAR FO R HEALTH CARE Advance Directives and Living Will 12/14/2017 12:00 AM POWER OF ATTENDANT HONOR BAR FO R HEALTH CARE Advance Directives and Living Will 09/13/2017 12:00 AM POWER OF ATTENDANT HONOR BAR FO R HEALTH CARE Advance Directives and Living Will 09/13/2017 12:00 AM POWER OF ATTENDANT HONOR BAR FO R HEALTH CARE Advance Directives and Living Will 08/03/2017 12:00 AM POWER OF ATTENDANT HONOR BAR FO R HEALTH CARE Advance Directives and Living Will 08/03/2017 12:00 AM POWER OF ATTENDANT HONOR BAR FO R HEALTH CARE Advance Directives and Living Will 06/22/2017 12:00 AM POWER OF ATTENDANT HONOR BAR FO R HEALTH CARE Advance Directives and Living Will 06/22/2017 12:00 AM POWER OF ATTENDANT HONOR BAR FO R HEALTH CARE Advance Directives and Living Will 03/23/2017 12:00 AM POWER OF ATTENDANT HONOR BAR FO R HEALTH CARE Advance Directives and Living Will 03/23/2017 12:00 AM POWER OF ATTENDANT HONOR BAR FO R HEALTH CARE Advance Directives and Living Will 02/02/2017 12:00 AM POWER OF ATTENDANT HONOR BAR FO R HEALTH CARE Advance Directives and Living Will 02/02/2017 12:00 AM POWER OF ATTENDANT HONOR BAR FO R HEALTH CARE Advance Directives and Living Will 12/14/2016 12:00 AM POWER OF ATTENDANT HONOR BAR FO R HEALTH CARE Advance Directives and Living Will 12/14/2016 12:00 AM POWER OF ATTENDANT HONOR BAR FO R HEALTH CARE Advance Directives and Living Will 09/08/2016 12:00 AM POWER OF ATTENDANT HONOR BAR FO R HEALTH CARE Advance Directives and Living Will 09/08/2016 12:00 AM POWER OF ATTENDANT HONOR BAR FO R HEALTH CARE Advance Directives and Living Will 07/27/2016 12:00 AM POWER OF ATTENDANT HONOR BAR FO R HEALTH CARE Advance Directives and Living Will 07/27/2016 12:00 AM POWER OF ATTENDANT HONOR BAR FO R HEALTH CARE Advance Directives and Living Will 07/27/2016 12:00 AM POWER OF ATTENDANT HONOR BAR FO R HEALTH CARE Advance Directives and Living Will 07/27/2016 12:00 AM POWER OF ATTENDANT HONOR BAR FO R HEALTH CARE Advance Directives and Living Will 06/15/2016 12:00 AM POWER OF ATTENDANT HONOR BAR FO R HEALTH CARE Advance Directives and Living Will 06/15/2016 12:00 AM POWER OF ATTENDANT HONOR BAR FO R HEALTH CARE Advance Directives and Living Will 06/05/2016 12:00 AM POWER OF ATTENDANT HONOR BAR FO R HEALTH CARE Advance Directives and Living Will 06/05/2016 12:00 AM POWER OF ATTENDANT HONOR BAR FO R HEALTH CARE Care Teams In Shop Service Technician Relationship Specialty Start Date End Date Jose Kilgore PA-C [address] [place], [place] [address] [place] [address] PCP - General 08/28/24 Neto Schaefer MD [facility]. [address] [address] [place] Executive Housekeeper CARDIOVASCULAR DISEASE 02/21/16 Poncho Troy MD [facility]. [facility] [address] [place] [address] Executive Housekeeper CARDIOVASCULAR DISEASE 03/09/16
--- OUTSIDE RECORDS SUMMARY | 2025-02-23 13:57 | XMS_ITS | Encounter Summary ---
Author Organization [facility] Address [address] [place] [address] Care Team Providers Care Night Guard Name Role Phone Neto Schaefer MD Unavailable Poncho Troy MD Unavailable Janee Nath PA-C Primary Care Provider [phone] Encounter Details Date Type Department Care Team (Latest Contact Info) Description 02/22/2025 Travel Social History Tobacco Use Types Packs/Day Years Used Date Smoking Tobacco: Former Cigarettes Q uit: 2010 Smokeless Tobacco: Never Alcohol Use Standard Drinks/Week Comments No 0 (1 standard drink = 0.6 oz pur e alcohol) Sex and Gender Information Value Date Recorded Sex Assigned at Male 08/22/2024 10:32 AM 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 [facility] [address] [place] [address] documented as of this encounter Visit Diagnoses Not on filedocumented in this encounter Care Teams Night Guard Relationship Specialty Start Date End Date Janee Nath PA-C [address] [place], [place] [address] [place] [address] PCP - General 08/28/24 Neto Schaefer MD [facility]. [address] [address] [place] Emissions Inspector CARDIOVASCULAR DISEASE 02/21/16 Poncho Troy MD [facility]. [address] [id number] EP Emissions Inspector CARDIOVASCULAR DISEASE 03/09/16 documented as of this encounter
== END 2025-02-23 13:52 | disposition home or self-care (01) ==
PROVIDERS: PCP Physician Assistant Medical; Visit Provider Urology
DX: N20.0 Calculus of kidney (principal); Z96.0 Presence of urogenital implants
CPT/HCPCS: 74018

== ENCOUNTER 2025-03-22 01:05 | Day surgery (SDC) | payer OTHER, SELFPAY ==
--- NOTE | 2025-03-16 09:49 | PC.NURSE ---
Report to the Outpatient Waiting Room, entrance under the green pavilion located off [facility], at time _8:15 AM on date _03/22/25 . Planned Procedure Time: __10:15 AM .? Time changes happen often and if your time is changed the preop area will call you the afternoon before. - You and your visitor will be asked to self-screen and do not enter if you have any COVID symptoms. Please call surgeon if you need to reschedule. - A mask is optional within the hospital at this time. Patients may have clear liquids (water, carbonated beverages, clear teas, apple juice) until 3 hours prior to surgery ( 7:15 AM) with a maximum of 20 ounces. - No food from midnight until time of surgery and no smoking, or chewing tobacco (or any form of nicotine). No chewing gum, candy or mints. Take only the following medications with a SIP of water on the morning of surgery: ___AMLODIPINE,METOPROLOL,GABAPENTIN DO NOT STOP ANY OF YOUR OTHER PRESCRIPTION MEDICATIONS PRIOR TO SURGERY EXCEPT THE FOLLOWING PATIENT STATES Hold all vitamins and supplements for [address] HADDAD LAST DOSE 03/14/25 Medications to discontinue per physician ___PATIENT STATES PER DR HADDAD HOLD ASPIRIN AND WARFARIN 7 DAYS PRE OP Date to take last dose____03/14/25 Please no make-up, nail yakut, hairspray, perfume, deodorant, or body powder the day of surgery.? No jewelry (including any body piercings) or valuables the day of surgery, leave them at home.? Please take a shower or bath the night before, or the morning of, surgery with an antibacterial soap.? Wear comfortable, loose fitting clothing.? Children are encouraged to wear pajamas. - Jewelry must be removed prior to entering the operating room.? Rings and piercings that are not removed may be cut off. - The hospital will not accept responsibility for valuables.? - Please leave all valuables, including medications, at home the day of surgery. If you are going home after surgery, a licensed cdl bulk driver must drive you home.? - NO public transportation without another adult if you receive anesthesia. - We recommend that an adult stay with you for 24 hours following discharge. - We also recommend that you do not drive, make important decision, drink alcoholic beverages, or take any drugs that were not prescribed by your health care provider for at least 24 hours after your discharge time. For Pediatric surgeries, we recommend two adults accompany the child home. Follow any additional instructions given to you from your surgeon. Telephone instructions given to _PATIENT and asked if any additional questions and then verbalized understanding. Patient advised to call surgeon office or pre surgery nurse liaison [phone] if any additional questions.
[2025-03-16 10:04] VITALS: BMI 31.9
[2025-03-22] VITALS (7 sets, daily range): BP systolic 107–122; BP diastolic 63–78; PULSE 81–98; RESP 14–18; TEMP 36.6; O2SAT 98–100
--- NOTE | ~2025-03-22 | XR_ITS ---
EXAMINATION: XR retrograde pyelo w/stent BI DATE: 03/22/2025 11:03 INDICATION: Bilateral retrograde internal ureteral stenting TECHNIQUE: 41 fluoroscopic images of the abdomen and pelvis were obtained during procedure performed by Dr. Andrew. Radiologist was not present for the imaging or procedure. The amount of fluoroscopy ti me used during this procedure was 1.7 minutes. Total DAP was 2.93 mGym^2. COMPARISON: 02/23/2025 FINDINGS: [employer] image demonstrates bilateral internal ureteral stents in expected positions. Again seen are lar ge renal stones project over the lower pole the left kidney. Cholecystectomy clips in right upper jorge drant. Bilateral total hip arthroplasties. Subsequent images demonstrate contrast injected into the r ight renal collecting system with moderate right hydroureteronephrosis. The prior internal ureteral s tent is removed over a wire and subsequent image demonstrates placement of a new right internal urete ral stent in expected position with proximal loop formed the right renal pelvis and distal loop in th e bladder. Subsequent images demonstrate removal of the left internal ureteral stent over a wire and cannulation of the left ureter with contrast injection demonstrating mild left hydronephrosis. Final images demonstrate a new left intraureteral stent with loops formed in the left renal pelvis and in t he bladder. Given the presence of some residual contrast in renal collecting systems is unclear wheth er a residual stone or stone fragments in the left kidney on the final images. IMPRESSION: 1. Fluoroscopy utilized during bilateral internal ureteral stent exchanges with mild left-sided and m oderate right-sided hydroureteronephrosis. 2. Left nephrolithiasis. Unclear whether there are any residual stone or stone fragments along the fi nal image due to the presence of injected contrast. Correlate with procedure note for further detail. Reviewed, dictated and finalized at location A. IMPRESSION: 1. Fluoroscopy utilized during bilateral internal ureteral stent exchanges with mild left-sided and moderate right-sided hydroureteronephrosis. 2. Left nephrolithiasis. Unclear whether there are any residual stone or stone fragments along the final image due to the presence of injected contrast. Corre late with procedure note for further detail.
--- OUTSIDE RECORDS SUMMARY | 2025-03-22 01:07 | XMS_ITS | Encounter Summary ---
Author Organization [facility] Address [address] [place] [address] Care Team Providers Care Manager It Training Name Role Phone Unavailable Primary Care Provider Unavailabl e Encounter Details Date Type Department Care Team (Late st Contact Info) Description 04/11/2020 Lab Requisition [facility] [address] [place] [id number] Neo Tang MD [address] [address] Social History Tobacco Use Types [...] AM CDT) Case Report Dermatopathology Report Case: [id number] Authorizing Provider: Neo Tang MD Collected: 04/10/2020 12:00 AM Ordering Location: [facility] Received: 04/11/2020 06:52 AM Pathologist: Debra De León MD Specimen: Skin, right lower leg 0 1:18 PM CDT DERMATOPATHOLOGY LABORATORY Final Diagnosis Specimen A. 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 Path # [id number]. 0 1:18 PM CDT DERMATOPATHOLOGY LABORATORY Gross Description Specimen A: Received is one formalin filled container labeled with the patient's name and designated right lower leg. The specimen consists of a shave biopsy measuring [id number]. Jar 0. 0 1:18 PM CDT DERMATOPATHOLOGY [...] characteristic determined by the Dermatopathology Laboratory at [facility], directed by Dr. iVoletta Daniel. These tests need not be, and therefore are not, approved by the [place] Food and Drug Administration. The tests are used for clinical purposes. Billing Codes Specimen Charges Stain Charges 04407 1 0 1:18 PM CDT DERMATOPATHOLOGY LABORATORY Embedded Images 0 1:18 PM CDT DERMATOPATHOLOGY LABORATORY Pathology/Cytolog y TISSUE SPECIMEN FROM SKIN / Unknown 04/10/2020 04/11/2020 6:52 AM CDT Neo Tang MD LAB - PATHOLOGY/CYTOLOGY ORDER ESTRELLA Final Result DERMATOPATHOLOGY LABORATORY [facility] - Department of Dermatology [address], [address] Floor [address] [phone] documented in this encounter Visit Diagnoses Not on filedocumented in this encounter
--- OUTSIDE RECORDS SUMMARY | 2025-03-22 01:07 | XMS_ITS | Encounter Summary ---
Author Organization [facility] Address [address] [place] [address] Care Team Providers Care Physician Asst Name Role Phone Neto Schaefer MD Unavailable Goyo Beavers MD Primary Care Provider [phone] Poncho Troy MD Unavailable Yovani Mendoza MD Primary Care Provider [phone] Janee Nath PA-C Primary Care Provider [phone] Encounter Details Date Type Department Care Team (Late st Contact Info) Description 11/23/2018 Abstract [facility] at [address] [address] Janeth Cook MA Social History Tobacco Use Types Packs/Day Years Used Date Smoking Tobacco: Former Cigarettes Q uit: 2010 Smokeless Tobacco: Never Alcohol Use Standard Drinks/Week Comments No 0 (1 standard drink = 0.6 oz pur e alcohol) Sex and Gender Information Value Date Recorded Sex Assigned at Male 08/22/2024 10:32 AM RANCH HAND LIVESTOCK Legal Sex Male 11:40 PM CDT Gender Identity Not on file Sexual Orientation Not on file 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 [facility] [address] [place], [place] [id number] documented as of this encounter Procedures Procedure [...] LAB-OUTSIDE/ABSTRACTED Final Result * HEMOGLOBIN, GLYCOSYLATED (07/27/2019) [facility] HGB A1C 6.0 4.8 - 5.6 07/27/2019 us Doc [facility] Abstract LABORATORY Final Result * COMPREHENSIVE METABOLIC PANEL (07/27/2019) [facility] SODIUM S/P/B 141 134 - 144 POTASSIUM [...] LABORATORY Final Result * LIPID PANEL (07/17/2019) [facility] CHOLESTEROL 190 100 - 199 HDL 35 >39 TRIGLYCERIDES 383 0 - 149 LDL (CALCULATED) 78 0 - 99 07/17/2019 us Doc [facility] LABORATORY Final Result * PROTIME (OUTSIDE LAB) (05/22/2019) [facility] PROTIME 26.6 INR 2.8 05/22/2019 us Doc [facility] Abstract LAB-OUTSIDE/ABSTRACTED Final Result * PROTIME (OUTSIDE LAB) (02/14/2019) PROTIME 20.9 INR 2.1 02/14/2019 us Doc [facility] Abstract LAB-OUTSIDE/ABSTRACTED Final Result * PROTIME (OUTSIDE LAB) (01/17/2019) PROTIME 30.5 INR 3.1 01/17/2019 us Doc [facility] Abstract LAB-OUTSIDE/ABSTRACTED Final Result * PROTIME (OUTSIDE LAB) (11/22/2018) PROTIME 21.4 INR 2.1 11/22/2018 us Doc [facility] Abstract LAB-OUTSIDE/ABSTRACTED Final Result documented in this encounter Visit Diagnoses Not on filedocumented in this encounter Care Teams Physician Asst Relationship Specialty Start Date End Date Goyo Beavers MD [facility]. [place] [address] [place] [address] PCP - General INTERNAL MEDICINE 03/09/16 07/08/22 Yovani Mendoza MD [address] [place] [address] PCP - General FAMILY PRACTICE 07/09/22 08/27/24 Janee Nath PA-C [address] [place] [address] PCP - General 08/28/24 Neto Schaefer MD [facility]. [facility] [address] [place] [address] Butler Physician Vice President CARDIOVASCULAR DISEASE 02/21/16 Poncho Troy MD Three [facility]. [address] [address] EP Physician Vice President CARDIOVASCULAR DISEASE 03/09/16 documented as of this encounter
--- OUTSIDE RECORDS SUMMARY | 2025-03-22 01:07 | XMS_ITS | Encounter Summary ---
Author Organization [facility] Address [address] [facility] [place] [address] Care Team Providers Care Grain Mixer Name Role Phone Unavailable Primary Care Provider Unavailabl e Encounter Details Date Type Department Care Team (Late st Contact Info) Description 05/15/2021 Lab Requisition [facility] DermPath Lab [address] [facility] [place] [phone] Neo Tang MD [address] [place] [place] [address] Social History Tobacco Use Types [...] AM CDT) Case Report Dermatopathology Report Case: [id number] Authorizing Provider: Neo Tang MD Collected: 05/14/2021 12:00 AM Ordering Location: [facility] DermPath Lab Received: 05/15/2021 08:04 AM Pathologist: Debra De León MD Specimen: Skin, ant neck 3:16 PM CDT DERMATOPATHOLOGY LABORATORY Final Diagnosis Specimen A. 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 Path # [id number]. 3:16 PM CDT DERMATOPATHOLOGY LABORATORY Gross Description Specimen A: Received is one formalin filled container labeled with the patient's name and designated ant neck. The specimen consists of a shave biopsy measuring [id number]. Jar 0. 3:16 PM CDT DERMATOPATHOLOGY LABORATORY [...] by the Dermatopathology Laboratory at [facility], directed by Dr. Violetta Daniel. These tests need not be, and therefore are not, approved by the [place] Food and Drug Administration. The tests are used for clinical purposes. Billing Codes Specimen Charges Stain Charges 78256 1 3:16 PM CDT DERMATOPATHOLOGY LABORATORY Embedded Images 3:16 PM CDT DERMATOPATHOLOGY LABORATORY Pathology/Cytolog y TISSUE SPECIMEN FROM SKIN / Unknown 05/14/2021 05/15/2021 8:04 AM CDT Neo Tang MD LAB - PATHOLOGY/CYTOLOGY ORDER ESTRELLA Final Result DERMATOPATHOLOGY LABORATORY [facility] - Department of Dermatology [address] [place] [address], [facility] [phone] documented in this encounter Visit Diagnoses Not on filedocumented in this encounter
--- OUTSIDE RECORDS SUMMARY | 2025-03-22 01:07 | XMS_ITS | Clinical Summary ---
Author Organization [facility] Address [address] [place] [address] Care Team Providers Care Bulldozer Press Operator Name Role Phone Unavailable Primary Care Provider Unavailabl e Source Comments [facility],non-owned Affiliates and Associated Physician Practices is amultiple site organization consisting of ambulatory clinics and hospital sitesin [place], [place], [place] and [place]. This disclosure is being madepursuant to the Care Everywhere program and may not contain all information available regarding this patient. Last updated 18.[facility] Social History Tobacco Use Types Packs/Day Years [...] age to complete this topic Insurance MEDICARE ADV PPO
--- OUTSIDE RECORDS SUMMARY | 2025-03-22 01:07 | XMS_ITS | Encounter Summary ---
Author Organization [facility] Address [address] [place] [address] Care Team Providers Care Veneer Repairer Machine Name Role Phone Unavailable Primary Care Provider Unavailabl e Encounter Details Date Type Department Care Team (Late st Contact Info) Description 12/07/2024 Lab Requisition [facility] - DermPath Lab [address] [place] [phone] Pineda Chavez MD [facility] DERMATOLOGY [address] [place] [phone] Neoplasm of uncertain behavior of skin [...] AM CDT) Case Report Dermatopathology Report Case: [id number] Authorizing Provider: Pineda Chavez MD Collected: 12/07/2024 12:00 AM Ordering Location: [facility] Physician [facility] - Received: 12/11/2024 11:32 AM DermPath [...] specimen consists of a shave biopsy measuring [id number] mm. Jar 0. 12:55 PM CDT DERMATOPATHOLOGY [...] characteristic determined by the Dermatopathology Laboratory at [facility], directed by Dr. Violetta Daniel. These tests need not be, and therefore are not, approved by the [place] Food and Drug Administration. The tests are used for clinical purposes. Billing Codes Specimen Charges Stain Charges 45870 1 12:55 PM CDT DERMATOPATHOLOGY LABORATORY Embedded Images 12:55 PM CDT DERMATOPATHOLOGY LABORATORY Pathology/Cytolog y TISSUE SPECIMEN FROM SKIN / Unknown 12/07/2024 12/11/2024 11:32 AM CDT us Pineda Chavez MD LAB - PATHOLOGY/CYTOLOGY YAJAIRA NEGRON Final Result DERMATOPATHOLOGY LABORATORY [facility] - Department of Dermatology [address] [phone] documented in this encounter Visit Diagnoses Diagnosis Neoplasm of uncertain behavior of skin documented in this encounter
--- OUTSIDE RECORDS SUMMARY | 2025-03-22 01:07 | XMS_ITS | Encounter Summary ---
Author Organization [facility] Address [address] [place] [address] Care Team Providers Care Employment Security Officer Name Role Phone Unavailable Primary Care Provider Unavailabl e Encounter Details Date Type Department Care Team (Late st Contact Info) Description 12/06/2020 Lab Requisition [facility] DermPath Lab [address] [facility], [place] [phone] Neo Tang MD [address] [address] Social History Tobacco Use Types [...] AM CDT) Case Report Dermatopathology Report Case: [id number] Authorizing Provider: Neo Tang MD Collected: 12/05/2020 12:00 AM Ordering Location: [facility] DermPath Lab Received: 12/06/2020 06:12 AM Pathologist: [...] Clinical History A: SCCA vs AK. Path# [id number]. B: SCCA vs AK. Path# [id number]. 1:45 PM CDT DERMATOPATHOLOGY LABORATORY Gross Description Specimen A: Received is one formalin filled container labeled with the patient's name and designated left dorsal hand. The specimen consists of a shave biopsy measuring [id number]. Jar 0. Specimen B: Received is one formalin filled container labeled with the patient's name and designated left postauricular hairline. The specimen consists of a shave biopsy measuring [id number]. Jar 0. 1:45 PM CDT DERMATOPATHOLOGY LABORATORY [...] purposes. Billing Codes Specimen Charges Stain Charges 25860 04568 1 1 1 1:45 PM CDT DERMATOPATHOLOGY LABORATORY Embedded Images 1:45 PM CDT DERMATOPATHOLOGY LABORATORY Pathology/Cytology TISSUE SPECIMEN FROM SKIN / Unknown 12/05/2020 12/06/2020 6:12 AM CDT Miscellaneous samples (specimen) TISSUE SPECIMEN FROM SKIN / Unknown 12/05/2020 12/06/2020 6:12 AM CDT us Neo Tang MD LAB - PATHOLOGY/CYTOLOGY ORDER ESTRELLA Final Result DERMATOPATHOLOGY LABORATORY [facility] - Department of Dermatology [facility] Medicine [address] [place] [address], [address] Floor [address] [phone] documented in this encounter Visit Diagnoses Not on filedocumented in this encounter
--- OUTSIDE RECORDS SUMMARY | 2025-03-22 01:07 | XMS_ITS | Encounter Summary ---
Author Organization [facility] Address [address] [place] [address] Care Team Providers Care Net Software Engineer Name Role Phone Neto Schaefer MD Unavailable Poncho Troy MD Unavailable Janee Nath PA-C Primary Care Provider [phone] Encounter Details Date Type Department Care Team (Late st Contact Info) Description 03/06/2025 Results Follow-Up [facility] Emergency Room [address] [place] [address] Daija Ospina MD [address] [place] [address] CULTURE, BACTERIA, BLOOD, CULTURE, BACTERIA, BLOOD, CULTURE URINE Social History Tobacco Use Types Packs/Day Years Used Date Smoking Tobacco: Former Cigarettes Q uit: 2010 Smokeless Tobacco: Never Alcohol Use Standard Drinks/Week Comments No 0 (1 standard drink = 0.6 oz pur e alcohol) Humiliation, Afraid, Rape, and Kick questionnair e Answer Date Recorded Within the last year, have y ou been afraid of your partner or ex-partner? No 03/03/2025 Within the last year, have y ou been humiliated or emotionally abused in other ways by your partner or ex-partner? No Within the last year, have y ou been kicked, hit, slapped, or otherwise physically hurt by your partner or ex-partner? No 03/03/2025 Within the last year, have y ou been raped or forced to have any kind of sexual activity by your partner or ex-partner? No 03/03/2025 Overall Financial Resource Strain (CARDIA) Answe r Date Recorded How hard is it for you to pa y for the very basics like food, housing, medical care, and heating? Not hard at all 03/03/2025 Hunger Vital Sign Answer Date Recorded Within the past 12 months, y ou worried that your food would run out before you got the money to buy more. Never true 03/03/20 25 Within the past 12 months, t he food you bought just didn't last and you didn't have money to get more. Never true 03/03/2025 Housing Stability Vital Sign Answer Delano e Recorded In the last 12 months, was t here a time when you were not able to pay the mortgage or rent on time? No 03/03/2025 In the past 12 months, how m any times have you moved where you were living? 0 03/03/2025 At any time in the past 12 m [facility], were you homeless or living in a fci (including now)? 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 Answer Date of Assessment Author Status No 03/03/2025 6:07 AM Mili Matias RN Active * Do you have serious difficulty walking or climbing stairs? Answer Date of Assessment Author Status No 03/03/2025 6:07 AM Mili Matias RN Active * Do you have difficulty dressing or bathing? Answer Date of Assessment Author Status No 03/03/2025 6:07 AM Mili Matias RN Active * Because of a physical, mental, or emotional condition, do you have difficulty doing errands alone such as visiting a doctor's office or shopping? Answer Date of Assessment Author Status No 03/03/2025 6:07 AM Mili Matias RN Active documented as of this encounter Mental Status * Because of a physical, mental, or emotional condition, do you have serious difficulty concentrating, remembering, or making decisions? Answer Entry Date Author Status No 03/03/2025 6:07 AM Mili Matias RN Active documented in this encounter Plan of Treatment Upcoming Encounters Date Type Department Care Team (Late st Contact Info) Description 09/27/2025 10:30 AM TRAFFIC ENGINEERING DIRECTOR Office Visit [facility] [phone] Neto Schaefer MD [facility]. [address] [phone] documented as of this encounter Visit Diagnoses Not on filedocumented in this encounter Care Teams Net Software Engineer Relationship Specialty Start Date End Date Janee Nath PA-C [address] [place], [place] [address] [place] [address] PCP - General 08/28/24 Neto Schaefer MD [facility]. [facility] [address] [place], [place] [phone] [place] Security Analyst CARDIOVASCULAR DISEASE 02/21/16 Poncho Troy MD [facility]. [facility] [address] [place], [place] [id number] EP Security Analyst CARDIOVASCULAR DISEASE 03/09/16 documented as of this encounter
--- OUTSIDE RECORDS SUMMARY | 2025-03-22 01:07 | XMS_ITS | Encounter Summary ---
Author Organization [facility] Address [address] [facility] [place] [address] Care Team Providers Care Fruit Cutter Name Role Phone Unavailable Primary Care Provider Unavailabl e Encounter Details Date Type Department Care Team (Late st Contact Info) Description 05/10/2023 Lab Requisition [facility] - DermPath Lab [address] [facility] [place] [phone] Neo Tang MD [address] [facility] [place] [address] Social History Tobacco Use Types [...] AM CDT) Case Report Dermatopathology Report Case: [id number] Authorizing Provider: Neo Tang MD Collected: 05/10/2023 12:00 AM Ordering Location: [facility] Lab Received: 05/10/2023 04:27 PM Pathologist: Marian Dalal MD Specimen: Skin, left forearm 12:59 PM CDT DERMATOPATHOLOGY LABORATORY Final Diagnosis Specimen A. SKIN, left forearm: BENIGN VERRUCOUS KERATOSIS, INFLAMED (L82.1) 12:59 PM CDT DERMATOPATHOLOGY LABORATORY at 1259 CDT Clinical History SCCA vs AK. Path# [id number] 12:59 PM CDT DERMATOPATHOLOGY LABORATORY Gross Description [...] purposes. Billing Codes Specimen Charges Stain Charges 61419 1 12:59 PM CDT DERMATOPATHOLOGY LABORATORY Embedded Images 12:59 PM CDT DERMATOPATHOLOGY LABORATORY Pathology/Cytolog y TISSUE SPECIMEN FROM SKIN / Unknown 05/10/2023 05/10/2023 4:27 PM CDT us Neo Tang MD LAB - PATHOLOGY/CYTOLOGY ORDER ESTRELLA Final Result DERMATOPATHOLOGY LABORATORY [facility] - Department of Dermatology [address] [place] [address], [facility] [phone] documented in this encounter Visit Diagnoses Not on filedocumented in this encounter
--- OUTSIDE RECORDS SUMMARY | 2025-03-22 01:07 | XMS_ITS | Encounter Summary ---
Author Organization [facility] Address [address] [place] [address] Care Team Providers Care Chest Painting Leader Name Role Phone Neto Schaefer MD Unavailable Goyo Beavers MD Primary Care Provider [phone] Poncho Troy MD Unavailable Bakari Olson MD Primary Care Provider [phone] Yovani Mendoza MD Primary Care Provider [phone] Janee Nath PA-C Primary Care Provider + [phone] Encounter Details Date Type Department Care Team (Late st Contact Info) Description 02/21/2016 Abstract [facility] AT [address] [address] Janeth Cook MA Social History Tobacco Use Types Packs/Day Years Used Date Smoking Tobacco: Former Sex and Gender Information Value Date Recorded Sex Assigned at Male 08/22/2024 10:32 AM NURSE PLASTICS Legal Sex Male 11:40 PM CDT Gender Identity Not on file Sexual Orientation Not on file Travel History Travel Start Travel End [place] 02/24/2025 03/01/2025 documented as of this encounter Plan of Treatment Upcoming Encounters Date Type Department Care Team (Late st Contact Info) Description 09/27/2025 10:30 AM NURSE PLASTICS Office Visit [facility] [address] [place] [address] Neto Schaefer MD [facility]. [facility] [address] [place] [address] documented as of this encounter Procedures Procedure [...] PROTIME (OUTSIDE LAB) (10/19/2016) Pathologist [facility] PROTIME 29.4 INR 2.9 10/19/2016 us Doc [facility] Abstract LAB-OUTSIDE/ABSTRACTED Final Result * PROTIME (OUTSIDE LAB) (09/14/2016) Pathologist [facility] PROTIME 23.6 INR 2.3 09/14/2016 us Doc [facility] Abstract LAB-OUTSIDE/ABSTRACTED Final Result * LIPID PANEL (09/04/2016) Pathologist [facility] CHOLESTEROL 209 HDL 35 TRIGLYCERIDES 503 09/04/2016 us Doc [facility] Abstract LABORATORY Final Result * BASIC METABOLIC PANEL (09/04/2016) Pathologist [facility] SODIUM S/P/B 141 POTASSIUM S/P/B 4.6 CO2 22 CHLORIDE S/P/B 99 GLUCOSE 129 CALCIUM S/P/B 10 BUN 18 CREATININE S/P/B 1.22 EGFR AFR. AMER. 7- EGFR NON-AFR. AMER. 61 09/04/2016 us Doc [facility] Abstract LABORATORY Edited Resul t - Final * CBC (OUTSIDE LAB) (09/04/2016) Pathologist [facility] WBC 7.0 HGB 16.0 HCT 46.8 PLT 262 09/04/2016 us Doc [facility] Abstract LAB-OUTSIDE/ABSTRACTED Final Result * PROTIME (OUTSIDE LAB) (08/24/2016) PROTIME 32.4 INR 3.2 08/24/2016 Doc [facility] Abstract LAB-OUTSIDE/ABSTRACTED Final Result * PROTIME (OUTSIDE LAB) (07/21/2016) PROTIME 28.6 INR 2.8 07/21/2016 Doc [facility] Abstract LAB-OUTSIDE/ABSTRACTED Final Result * PROTIME (OUTSIDE LAB) (06/13/2016) PROTIME 20.0 INR 2.0 06/13/2016 [facility] LAB-OUTSIDE/ABSTRACTED Final Result * PROTIME (OUTSIDE LAB) (05/07/2016) PROTIME 25.3 INR 2.5 05/07/2016 [facility]CT[facility] Final Result * PROTIME (OUTSIDE LAB) (04/06/2016) PROTIME 23.5 INR 2.3 04/06/2016 us Neto Schaefer MD LAB-OUTSIDE/ABSTRACTED Final Res ult * PROTIME (OUTSIDE LAB) (03/09/2016) PROTIME 27.6 INR 2.7 03/09/2016 Result Alfie Schaefer MD LAB-OUTSIDE/ABSTRACTED Edited Re sult - Final * PROTIME (OUTSIDE LAB) (02/20/2016) PROTIME 37.6 INR 3.6 02/20/2016 Neto Schaefer MD LAB-OUTSIDE/ABSTRACTED Final Res ult documented in this encounter Visit Diagnoses Not on filedocumented in this encounter Care Teams Chest Painting Leader Relationship Specialty Start Date End Date Goyo Beavers MD [address] [facility] [address] [place] [address] PCP - General INTERNAL MEDICINE 03/09/16 07/08/22 [place] [address] [address] [address] PCP - General 04/19/14 03/08/16 Yovani Mendoza MD [address] [place] [address] PCP - General FAMILY PRACTICE 07/09/22 08/27/24 Janee Nath PA-C [address] [place], [place] [address] [place] [address] PCP - General 08/28/24 Neto Schaefer MD [address] [facility] [address] [place] [address] [place] Bean Picker Machine Operator CARDIOVASCULAR DISEASE 02/21/16 Poncho Troy MD [address] [facility] [address] [place], [place] [address] EP Bean Picker Machine Operator CARDIOVASCULAR DISEASE 03/09/16 documented as of this encounter
--- OUTSIDE RECORDS SUMMARY | 2025-03-22 01:07 | XMS_ITS | Encounter Summary ---
Author Organization [facility] Address [address] [place] [address] Care Team Providers Care Effervescent Salts Compounder Name Role Phone Unavailable Primary Care Provider Unavailabl e Encounter Details Date Type Department Care Team (Late st Contact Info) Description 08/30/2020 Lab Requisition [facility] DermPath Lab [address] [facility], [place] [id number] Neo Tang MD [address] [place] [address] Social History Tobacco Use Types [...] Diagnosis Comments DERMATOPATHOLOGY Routine 08/29/2020 3:27 AM TIMBER INSPECTOR documented in this encounter Results * DERMATOPATHOLOGY (08/29/2020 3:27 AM TIMBER INSPECTOR) Case Report Dermatopathology Report Case: [id number] Authorizing Provider: Neo Tang MD Collected: 08/29/2020 03:27 AM Ordering Location: [facility] DermPath Lab Received: 08/30/2020 07:26 AM Pathologist: Constanza Castro MD Specimens: A) - Skin, frontal scalp B) - Skin, crown 1:20 PM TIMBER INSPECTOR DERMATOPATHOLOGY LABORATORY Final Diagnosis Specimen A. SKIN, frontal scalp: HYPERPLASTIC (HYPERTROPHIC) ACTINIC KERATOSIS, LICHENOID (L57.0)= OVERLYING CUTANEOUS HORN (L85.8) Specimen B. SKIN, crown: HYPERPLASTIC (HYPERTROPHIC) ACTINIC KERATOSIS, LICHENOID (L57.0) OVERLYING CUTANEOUS HORN (L85.8) 1 1:20 PM [facility] DERMATOPATHOLOGY LABORATORY at 1320 TIMBER INSPECTOR Clinical History A: SCCA vs AK. Path# [id number]. B: SCCA vs AK. Path# [id number]. 1 1:20 PM [facility] DERMATOPATHOLOGY LABORATORY Gross Description Specimen A: Received is one formalin filled container labeled with the patient's name and designated frontal scalp. The specimen consists of a shave biopsy measuring [id number]. Jar 0+. Specimen B: Received is one formalin filled container labeled with the patient's name and designated crown. The specimen consists of a shave biopsy measuring [id number], bisected. Jar 0+. 1:20 PM [facility] DERMATOPATHOLOGY LABORATORY Microscopic Description Specimen [...] column of marked compact hyperkeratosis. 1:20 PM [facility] DERMATOPATHOLOGY LABORATORY Disclaimer An external and internal positive and negative controls are appropriate for the histochemical, immunohistochemical and immunofluorescence stain(s) in this case (if any), except where stated explicitly. The performance characteristics of the stain(s) cited in this report were developed and its performance characteristic determined by the Dermatopathology Laboratory at [facility], directed by Dr. Violetta Daniel. These tests need not be, and therefore are not, approved by the [place] Food and Drug Administration. The tests are used for clinical purposes. Billing Codes Specimen Charges Stain Charges 41487 34532 1 1 1 1:20 PM [facility] DERMATOPATHOLOGY LABORATORY Embedded Images 1:20 PM [facility] DERMATOPATHOLOGY [facility]ORATORY Pathology/Cytology TISSUE SPECIMEN FROM SKIN / Unknown 08/29/2020 3:27 AM TIMBER INSPECTOR 08/30/2020 7:26 AM TIMBER INSPECTOR Miscellaneous samples (specimen) TISSUE SPECIMEN FROM SKIN / Unknown 08/29/2020 3:27 AM TIMBER INSPECTOR 08/30/2020 7:26 AM TIMBER INSPECTOR us Neo Tang MD LAB - PATHOLOGY/CYTOLOGY ORDER ESTRELLA Final Result DERMATOPATHOLOGY LABORATORY [facility] - Department of Dermatology [facility] Specialized Medicine [address] [place] [address], [address] [phone] documented in this encounter Visit Diagnoses Not on filedocumented in this encounter
--- OUTSIDE RECORDS SUMMARY | 2025-03-22 01:08 | XMS_ITS | Encounter Summary ---
Author Organization [facility] Address [address] [place] [address] Care Team Providers Care Phlebotomy Instructor Name Role Phone Neto Schaefre MD Unavailable Goyo Beavers MD Primary Care Provider [phone] Poncho Troy MD Unavailable Yovani Mendoza MD Primary Care Provider [phone] Janee Nath PA-C Primary Care Provider [phone] Encounter Details Date Type Department Care Team (Late st Contact Info) Description 04/22/2018 Abstract [facility] at [address] [address] Janeth Cook MA Social History Tobacco Use Types Packs/Day Years Used Date Smoking Tobacco: Former Cigarettes Q uit: 2010 Smokeless Tobacco: Never Alcohol Use Standard Drinks/Week Comments No 0 (1 standard drink = 0.6 oz pur e alcohol) Sex and Gender Information Value Date Recorded Sex Assigned at Male 08/22/2024 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 [place], [place] [id number] documented as of this encounter Procedures Procedure [...] on filedocumented in this encounter Care Teams Phlebotomy Instructor Relationship Specialty Start Date End Date Goyo Beavers MD [address] [address] PCP - General INTERNAL MEDICINE 03/09/16 07/08/22 Yovani Mendoza MD [address] [place] [address] PCP - General FAMILY PRACTICE 07/09/22 08/27/24 Janee Nath PA-C [address] [place] [address] [place] [address] PCP - General 08/28/24 Neto Schaefer MD Three [facility] [address] [place], [place] [address] [place] CARDIOVASCULAR DISEASE 02/21/16 Poncho Troy MD [address] [facility] [address] [place], [place] [address] [place] CARDIOVASCULAR DISEASE 03/09/16 documented as of this encounter
--- OUTSIDE RECORDS SUMMARY | 2025-03-22 01:08 | XMS_ITS | Encounter Summary ---
Author Organization [facility] Address [address] [place] [address] Care Team Providers Care Psychiatry Teacher Name Role Phone Neto Schaefer MD Unavailable Goyo Beavers MD Primary Care Provider [phone] Poncho Troy MD Unavailable Yovani Mendoza MD Primary Care Provider [phone] Janee NathC Primary Care Provider [phone] Encounter Details Date Type Department Care Team (Late st Contact Info) Description 08/23/2021 MyCH[employer] Message [facility] [address] [place] [phone] Michelle Knox, ANP-BC [address] [place] [address] Test results ordered by primary Goyo Beavers MD Social History Tobacco Use Types Packs/Day Years Used Date Smoking Tobacco: Former Cigarettes Q uit: 2010 Smokeless Tobacco: Never Alcohol Use Standard Drinks/Week Comments No 0 (1 standard drink = 0.6 oz pur e alcohol) Sex and Gender Information Value Date Recorded Sex Assigned at Male 08/22/2024 10:32 AM 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 No / Unsure 08/22/2021 9:15 AM REHABILITATION TECHNICIAN documented as of this encounter Plan of Treatment Upcoming Encounters Date Type Department Care Team (Late st Contact Info) Description 09/27/2025 10:30 AM REHABILITATION TECHNICIAN Office Visit [facility] [address] [place] [phone] Neto Schaefer MD [address] [id number] documented as of this encounter Visit Diagnoses Not on filedocumented in this encounter Care Teams Psychiatry Teacher Relationship Specialty Start Date End Date Goyo Beavers MD [id number] [place], [place] [id number] PCP - General INTERNAL MEDICINE 03/09/16 07/08/22 Yovani Mendoza MD [address] [place] [address] PCP - General FAMILY PRACTICE 07/09/22 08/27/24 Janee Nath PA-C [address] [place] [address] PCP - General 08/28/24 Neto Schaefer MD [facility] [address] [place], [place] [phone] [place] Roofing Technician CARDIOVASCULAR DISEASE 02/21/16 Poncho Troy MD [address] [address] EP Roofing Technician CARDIOVASCULAR DISEASE 03/09/16 documented as of this encounter
--- OUTSIDE RECORDS SUMMARY | 2025-03-22 01:08 | XMS_ITS | Clinical Summary ---
Author Organization [facility] Address [address] [place] [address] Care Team Providers Care Recreation Engineer Name Role Phone Neto Schaefer MD Unavailable Poncho Troy MD Unavailable Janee Nath PA-C Primary Care Provider [phone] Allergies No known active allergies Medications aspirin [...] mcg by mouth daily. 04/03/20 16 Active Oxford-3 Fatty Acids (OMEGA-3 FISH OIL) 1200 MG Cap Take 1,200 mg by mouth daily. 04/03/20 16 Active HYDROCHLOROTHIAZ MICHAEL 12.5 MG tablet TAKE 1 TABLET BY MOUTH DAILY 90 tablet 1 11/05/19 19 Active Frtj-Iztna-WVU-B oswellia-Vit D (GLUCOSAMINE CHONDROITIN + D3 OR) Take 2 tablets by mouth daily. Active clindamycin 300 MG capsule For dentist appt.'s due to bilat hip replacements 11/07/19 22 Active fenofibrate 160 MG tablet Take 1 tablet (160 mg total) by mouth daily. 90 tablet 3 01/08/20 23 Active amLODIPine (NORVASC) 10 MG tablet Take 1 tablet (10 mg total) by mouth daily. 90 tablet 3 01/08/20 23 Active FARXIGA 10 MG tablet Take 1 tablet (10 mg total) by mouth daily. 08/23/19 25 Active lisinopril (PRINIVIL) 20 MG tabletIndication s:Essential hypertension Take 1 tablet (20 mg total) by mouth daily. 90 tablet 1 01/25/20 25 Active metoprolol tartrate (LOPRESSOR) 25 MG tabletIndication s:Essential hypertension Take 1 tablet (25 mg total) by mouth 2 (two) times daily. Take with a 50mg tab twice a day to make a total of 75mg BID 180 tablet 1 01/25/20 25 Active metoprolol tartrate (LOPRESSOR) 50 MG tabletIndication s:Essential hypertension Take 1 tablet (50 mg total) by mouth 2 (two) times daily. Take with 25mg tablet to equal 75mg twice a day 180 tablet 1 01/25/20 25 Active warfarin (COUMADIN) 5 MG tabletIndication s:Paroxysmal atrial fibrillation (CMS/HCC HHS/HCC) NEW DOSE: Take 1/2 tablet (2.5mg total) by mouth on Tuesdays, then take 1 tablet (5mg total) all the rest. 90 tablet 01/25/20 25 Active cefdinir (OMNICEF) 300 MG Cap capsule Take 1 capsule (300 mg total) by mouth 2 (two) times daily for 7 days. 14 capsule 03/04/20 25 025 amoxicillin (AMOXIL) 500 MG capsule Take 1 capsule (500 mg total) by mouth 3 (three) times daily for 10 days. 30 capsule 03/06/20 25 025 Active Problems Problem Noted Date Diagnosed Date Kidney stones 03/03/2025 Diverticulosis 01/15/2022 Rectal polyp 01/15/2022 Internal hemorrhoid 01/15/2022 Skin tags, anus or rectum 01/15/2022 Primary hypertension 09/09/2017 PVC (premature ventricular contraction) 09/03/19 17 Dyslipidemia 09/03/2016 Coronary artery calcification seen on CT scan Paroxysmal atrial fibrillation ([facility]) Obstructive sleep apnea chandra stephenie with continuous positive airway pressure (CPAP) Diabetes mellitus ([facility]) Resolved Problems Problem Noted Date Diagnosed Date Resolved Date Coronary artery disease invo lving ruby coronary artery of ruby heart without angina pectoris 09/03/2016 09/07/2017 S/P ablation of atrial fibrillation 04/03/2016 09/07/2017 PAF (paroxysmal atrial fibri llation) ([facility]) 01/22/2016 09/07/2017 CAD (coronary artery disease) 09/07/2017 Encounters Date Type Department Care Team Description 03/12/2025 9:15 AM CDT - 03/12/2025 11:59 PM CDT Hospital Encounter [facility] [address] [place] [id number] Ronnie nAdrew MD Discharge Disposition: Home or Self Care (Routine Discharge) 03/12/2025 Travel 03/08/2025 11:16 AM CDT - 03/08/2025 11:59 PM CDT Hospital Encounter [facility] [address] [place] [id number] Neto Schaefer MD Discharge Disposition: Home or Self Care (Routine Discharge) 03/08/2025 11:00 AM CDT Office Visit [facility] [phone] Michelle Knox, ANP-BC Atrial Fibrillation (6 month follow up) 03/08/2025 Anti-Coag Telephone Call [facility] [place] [address] [place] [address] Vibha Anna RN Anticoagulation (protime) 03/08/2025 Travel 03/06/2025 Results Follow-Up [facility] [address] [place] [address] Daija Ospina MD CULTURE, BACTERIA, BLOOD, CULTURE, BACTERIA, BLOOD, CULTURE URINE 03/03/2025 10:00 AM CDT - 03/03/2025 11:10 AM CDT Surgery [facility] [place] [address] Lisa Schmidt MD CYSTOSCOPY, BILATERAL RETROGRADE PYELOGRAM, LEFT URETEROSCOPY WITH HOLMIUM LASER LITHOTRIPSY AND STONE EXTRACTION, BILATERAL STENT PLACEMENT, اعللي CATHETER PLACEMENT 03/03/2025 9:57 AM CDT Anesthesia [place] [address] Adis Rosen MD 03/03/2025 5:35 AM CDT - 03/04/2025 4:22 PM CDT [facility] [address] [place] [address] Amy Gerber MD Lamonica, Kandace C, MD Helmholt, Jennifer, NP Discharge Disposition: Home or Self Care (Routine Discharge) 03/03/2025 Travel 03/02/2025 11:14 PM CDT - 03/03/2025 4:45 AM CDT Emergency [facility] [address] [place] [id number] Saul Alexander MD Weakness (Patient had lithotripsy done the end of December 27 and then again in February 02. Then last WednesdayFebruary 23 to have the stents removed. But last night about 16-1700 he was unable to eat and became weak. He won't lie down. He had been fine the day before. Today he couldn't get warm. They family was putting blankets in the dryer to get him warm.) Discharge Disposition: Transfer to [facility] 03/02/2025 Travel 02/22/2025 9:40 AM CDT - 02/22/2025 11:59 PM CDT Hospital Encounter [facility] [address] [place] [address] Neto Schaefer MD Discharge Disposition: Home or Self Care (Routine Discharge) 02/22/2025 Anti-Coag Telephone Call [facility], [facility] [address] [place] [address] Vibha Anna RN Anticoagulation (protime) 02/22/2025 Travel 01/24/2025 Telephone [facility] [place] [address] [place] [address] Carolyn Anderson, [facility] Refill Request (Lisinopril, metoprolol n warfarin) 01/19/2025 10:21 AM CDT - 01/19/2025 11:59 PM CDT Hospital Encounter [facility] [address] [place] [address] Neto Schaefer MD Discharge Disposition: Home or Self Care (Routine Discharge) 01/19/2025 Anti-Coag Telephone Call [facility] [place] [address] [place] [address] Mireille Harding RN Anticoagulation (INR) 01/19/2025 Travel 01/05/2025 8:50 AM CDT - 01/05/2025 11:59 PM CDT Hospital Encounter [facility] [address] [place] [phone] Neto Schaefre MD Discharge Disposition: Home or Self Care (Routine Discharge) 01/05/2025 Anti-Coag Telephone Call [facility] [place] [address] [place] [address] Vibha Anna RN Anticoagulation (protime) 01/05/2025 Travel 12/29/2024 Anti-Coag Telephone Call [facility], [facility] [address] [place] [address] Mireille Harding RN Anticoagulation 12/28/2024 Telephone [facility], [place] [address] [place] [address] Neto Schaefer MD Refill Request (METOPROLOL WARFARIN) from Last 3 Months Immunizations Immunization Administration [...] any time in the past 12 m [facility], were you homeless or living in a long-term (including now)? No 03/03/2025 Sex and Gender Information Value Date Recorded Sex Assigned at Male 08/22/2024 10:32 AM BALANCE SHEET ANALYST Legal Sex Male 11:40 PM CDT Gender Identity Not on file Sexual Orientation Not on file Occupation Industry Job Start Date Job End Date Worked in a [employer] Not on file Not on file Not on file Travel History Travel Start Travel End [place] 02/24/2025 03/01/2025 Last Filed Vital Signs Vital Sign Reading Time Taken Comments Blood Pressure 128/76 03/08/2025 10:44 AM CDT Pulse 69 03/08/2025 10:44 AM CDT Temperature 37.6 C (99.6 F) 03/04/2025 11:11 AM CDT Respiratory Rate 25 03/04/2025 11:1 1 AM CDT Oxygen Saturation 96% 03/08/2025 10: 44 AM CDT Inhaled Oxygen Concentration - - Weight 112.6 kg (248 lb 3.2 oz) 025 10:44 AM CDT Height 188 cm (6' 2) 03/08/2025 10:44 AM CDT Body Mass Index 31.87 03/08/2025 10:44 AM CDT Plan of Treatment Upcoming Encounters Date Type Department Care Team (Late st Contact Info) Description 09/27/2025 10:30 AM BALANCE SHEET ANALYST Office Visit [facility] [address] [place] [phone] Neto Schaefer MD [facility]. [address] [address] Health Maintenance Due Date Last [...] Years) Discontinued 01/15/2022, 01/15/2022 AAA SCREENING Completed 03/03/2025, 11/2024, 08/04/2019, Additional history exists Meningococcal B Vaccine Aged Out No l onger eligible based on patient's age to complete this topic Meningococcal Vaccine Aged Out No alber ton eligible based on patient's age to complete this topic RSV Immunizations Under 20 Months Aged Out No longer eligible based on patient's age to complete this topic Medical Devices Implanted Type Area Microfabrication Engineer Manager Device Identifier Shelf Expiration Date Model / Serial / Lot Stent Ureteral Gail Sci Contour Vl 6fr X 22-30cm - [id number] Implanted:Qty : 1 on 03/03/2025 by Lisa Schmidt MD at [facility] Stent Right: Ureter [employer] [id number] 03/21/2027 [id number] 60 / / [id number] Stent Ureteral Contour Vl 4.8fr X 22-30cm - [id number] Implanted:Qty : 1 on 03/03/2025 by Lisa Schmidt MD at [facility] Stent Left: Ureter [employer] [id number] 05/11/2027 [id number] 50 / / [id number] Procedures Procedure Name Priority Date/Time Associated Diagnosis Comments XR ABD KUB Routine 03/12/2025 9:31 AM CDT Bilateral kidney stones PROTHROMBIN TIME, FINGERSTICK Routine 03/08/2025 11:18 AM CDT Paroxysmal atrial fibrillation (CMS/HCC HHS/HCC) 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 POCT GLUCOSE - DOCKED DEVICE Routine 03/04/2025 11:11 AM CDT POCT GLUCOSE - DOCKED DEVICE Routine 03/04/2025 5:58 AM CDT PROTHROMBIN TIME, VENOUS Routine 03/04/2025 4:40 AM CDT BASIC METABOLIC PANEL Routine 03/04/2025 4:40 AM CDT CBC W/DIFF AUTOMATED Routine 03/04/2025 4:40 AM CDT POCT GLUCOSE - DOCKED DEVICE Routine 03/03/2025 7:31 PM CDT POCT GLUCOSE - DOCKED DEVICE Routine 03/03/2025 4:21 PM CDT ECG 12-LEAD Routine 03/03/2025 11:36 AM CDT SURG XR RETROGRD UROGRAPHY Routine 03/03/2025 11:11 AM CDT POCT GLUCOSE - DOCKED DEVICE Routine 03/03/2025 11:02 AM CDT CYSTOSCOPY 03/03/2025 9:56 AM CDT Kidney stones POCT GLUCOSE - DOCKED DEVICE Routine 03/03/2025 7:07 AM CDT BASIC METABOLIC PANEL Routine 03/03/2025 6:29 AM CDT PROTHROMBIN TIME, VENOUS Routine 03/03/2025 6:29 AM CDT CBC W/DIFF AUTOMATED Routine 03/03/2025 6:29 AM CDT CULTURE, BACTERIA, BLOOD STAT 03/03/2025 12:12 AM CDT CULTURE, BACTERIA, BLOOD STAT 03/03/2025 12:[address] ABD+PEL WO CON STAT 03/03/2025 12: 03 AM CDT LACTIC ACID W REFLEX (SEPSIS) STAT 03/02/2025 11:25 PM CDT COMPREHENSIVE METABOLIC PANEL STAT 03/02/2025 11:25 PM CDT CBC W/DIFF AUTOMATED STAT 03/02/2025 11:25 PM CDT URINE BACTERIA CULTURE STAT 03/02/2025 11:15 PM CDT HC URINALYSIS AUTO W/O MICRO STAT 03/02/2025 11:15 PM CDT PROTHROMBIN TIME, FINGERSTICK Routine 02/22/2025 9:42 AM CDT Paroxysmal atrial fibrillation (CMS/HCC HHS/HCC) assisted (current) use of anticoagulants PROTHROMBIN TIME, FINGERSTICK Routine 01/19/2025 10:53 AM CDT Paroxysmal atrial fibrillation (CMS/HCC HHS/HCC) 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 PROTHROMBIN TIME, FINGERSTICK Routine 01/05/2025 8:57 AM CDT Paroxysmal atrial fibrillation (CMS/HCC HHS/HCC) 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 LIPID PANEL Routine 07/20/2024 9:06 AM BALANCE SHEET ANALYST Hyperlipemia Type 2 diabetes mellitus without complications (CMS/HCC HHS/HCC) Hypertension Encounter for screening for malignant neoplasm of prostate HEMOGLOBIN, GLYCOSYLATED Routine 07/20/2024 9:06 AM BALANCE SHEET ANALYST Hyperlipemia Type 2 diabetes mellitus without complications (CMS/HCC HHS/HCC) Hypertension Encounter for screening for malignant neoplasm of prostate COLONOSCOPY Routine 01/15/2022 6:27 AM CDT from Last 3 Months or Most Recently Relevant to Health Maintenance Results * XR ABD KUB (03/12/2025 9:31 AM CDT) Anatomical Region Laterality Modality Abdomen Radiographic Naina ging 03/13/2025 8:11 AM CDT Impressions 03/13/2025 8:13 AM CDT IMPRESSION: 1. Multiple left renal stones measuring up to 13 mm. 2. Bilateral distal ureteral calcifications are redemonstrated, left greater than right. 3. Status post bilateral retrograde ureteral stent placement. Ordered By: RONNIE ANDREW Interpreted By: Sonali Ordoñez MD, 03/13/2025 8:11 AM Narrative 03/13/2025 8:13 [place] [address] PROCEDURE: XR ABD KUB HISTORY: BILATERAL KIDNEY STONES TECHNIQUE: Supine image(s) of the abdomen and pelvis were obtained on 03/12/2025 at 0 924 hours. COMPARISON: 2012. CT abdomen pelvis without contrast, 03/02/2025. FINDINGS: LINES OR TUBES: Bilateral ureteral stent present. LUNG BASES: Unremarkable. BOWEL GAS PATTERN: There are no abnormally dilated loops of bowel. FREE AIR: No free air is detected on this supine exam. CALCIFICATIONS/OTHER: Extensive distal left ureteral calcifications spanning approximately 6.2. There are multiple left renal stones measuring up to 13 mm. Cholecystectomy clips are present within the right upper quadrant. MUSCULOSKELETAL: Degenerative changes are seen in the visualized portions of the spine. Imaged bilateral hip arthroplasty hardware. Procedure Note Sonali Ordoñez MD - 03/13/2025 [place] [address] PROCEDURE: XR ABD KUB HISTORY: BILATERAL KIDNEY STONES TECHNIQUE: Supine image(s) of the abdomen and pelvis were obtained on03/12/2025 at 0 924 hours. COMPARISON: 2012. CT abdomen pelvis without contrast, 03/02/2025. FINDINGS: LINES OR TUBES: Bilateral ureteral stent present. LUNG BASES: Unremarkable. BOWEL GAS PATTERN: There are no abnormally dilated loops of bowel. FREE AIR: No free air is detected on this supine exam. CALCIFICATIONS/OTHER: Extensive distal left ureteral calcificationsspanning approximately 6.2. There are multiple left renal stones measuringup to 13 mm. Cholecystectomy clips are present within the right upperquadrant. MUSCULOSKELETAL: Degenerative changes are seen in the visualized portionsof the spine. Imaged bilateral hip arthroplasty hardware. IMPRESSION: 1. Multiple left renal stones measuring up to 13 mm. 2. Bilateral distal ureteral calcifications are redemonstrated, leftgreater than right. 3. Status post bilateral retrograde ureteral stent placement. Ordered By: RONNIE ANDREW Interpreted By: Sonali Ordoñez MD, 03/13/2025 8:11 AM us Ronnie Andrew MD GENERAL IMAGING Final Result * (ABNORMAL) PROTIME/INR, FINGERSTICK (03/08/2025 11:18 AM CDT) Only the most recent of4 resultswithin the time period is included. PROTIME WHOLE BLOOD 30.9(H) 12.0 - 14.5 SEC 03/08/2025 11:30 AM CDT [facility] INR WHOLE BLOOD 2.6(H) 0.9 - 1.1 11:30 AM CDT [facility] Comment: Recommended INR Therapeutic Goals: 2.0-3.0 Routine Therapy 2.5-3.5 Mechanical Prosthetic Valves (High Risk) TESTING PERFORMED ON POINT OF CARE VALDEZ COAGUCHECK ANALYZER. NOTE: Heparin and Low molecular weight heparins can affect results at various INR levels. If patient is currently on these medications, an alternate method of coagulation testing is strongly recommended. 03/08/2025 11:1 8 AM CDT us Neto Schaefer MD LABORATORY Final Result [facility] [address] [place] [address], [place] [phone] * (ABNORMAL) POCT glucose (03/04/2025 11:11 AM CDT) Only the most recent of6 resultswithin the time period is included. [facility] GLUCOSE POC 146(H) 70 - 99 mg/dL 03/04/2025 12:01 PM CDT [facility] 03/04/2025 11:1 1 AM CDT Josefa Faustin OPERATIONS SECTION MANAGER POCT ORDERABLES - DEVICE Fi nal Result [facility] [address] [place] [phone], * (ABNORMAL) PROTIME/INR, VENOUS (03/04/2025 4:40 AM CDT) Only the most recent of2 resultswithin the time period is included. [facility] PROTIME 28.1(H) 10.2 - 12.9 SEC 03/04/2025 5:40 AM CDT [facility] INR 2.5 03/04/2025 5:40 AM CDT [facility] Comment: Recommended INR Therapeutic Goals: 2.0-3.0 Routine Therapy 2.5-3.5 Mechanical Prosthetic Valves (High Risk) 03/04/2025 4:40 AM CDT Sidra Johns MD LABORATORY Final Resu lt [facility] [address] [place] [address], * (ABNORMAL) BASIC METABOLIC PANEL (03/04/2025 4:40 AM CDT) Only the most recent of2 resultswithin the time period is included. GLUCOSE 147(H) 70 - 99 MG/DL 03/04/2025 5:46 AM T [facility] BUN 27(H) 7 - 18 MG/DL 03/04/2025 5:46 AM [facility] CREATININE S/P/B 1.64(H) 0.7 - 1.3 MG/DL 03/04/2025 5:46 AM T [facility] SODIUM S/P/B 135(L) 136 - 145 MMOL/L 03/04/2025 5:46 AM T [facility] POTASSIUM S/P/B 4.3 3.5 - 5.1 MMOL/L 03/04/2025 5:46 AM [facility] CHLORIDE S/P/B 101 97 - 115 MMOL/L 03/04/2025 5:46 AM T [facility] CO2 27.6 21 - 32 MMOL/L 03/04/2025 5:46 AM [facility] CALCIUM S/P/B 9.0 8.5 - 10.1 MG/DL 03/04/2025 5:46 AM [facility] ANION GAP 6.4 2 - 10 MMOL/L 03/04/2025 5:46 AM [facility] BUN CREATININE RATIO 16.5 6 - 26 03/04/2025 5:46 AM [facility] GFR ESTIMATE 43(L) >90 ML/MIN/1.7 3 M2 03/04/2025 5:46 AM [facility] Comment: NOTE: eGFR is not calculated for patients <18 years of age or gender unknown. This is an estimated GFR calculation using the new CKD EPI creatinine equation without race and so does not require a correction factor for race. This estimated GFR should not be used for calculating drug doses. 03/04/2025 4:40 AM CDT us Lisa Schmidt MD LABORATORY Final Result [facility] [address] [place] [address], [place] [phone] * (ABNORMAL) CBC W/DIFF AUTOMATED (03/04/2025 4:40 AM CDT) Only the most recent of3 resultswithin the time period is included. WBC 10.81 4.5 - 11.0 x10'3/uL 03/04/2025 5:27 AM CDT [facility] RBC 5.22 4.70 - 6.10 x10'6/uL 03/04/2025 5:27 AM CDT [facility] HGB 15.1 14.0 - 18.0 G/DL 03/04/2025 5:27 AM CDT [facility] HCT 45.5 43.0 - 54.0 % 03/04/2025 5:27 AM CDT [facility] MCV 87.2 80.0 - 94.0 FL 03/04/2025 5:27 AM CDT [facility] MCH 28.9 27.0 - 31.0 PG 03/04/2025 5:27 AM CDT [facility] MCHC 33.2 32.0 - 36.0 G/DL 03/04/2025 5:27 AM CDT [facility] RDW 13.8 11.5 - 14.5 % 03/04/2025 5:27 AM CDT [facility] PLT 195 130 - 400 x10'3/uL 03/04/2025 5:27 AM CDT [facility] MPV 11.8 9.3 - 12.2 FL 03/04/2025 5:27 AM CDT [facility] DIFFERENTIAL TYPE AUTOMATED DIFFERENTIAL 03/04/2025 5:27 AM CDT [facility] NEUTROPHILS % 78.8 % 03/04/2025 5:27 AM T [facility] LYMPHOCYTES % 8.6 % 03/04/2025 5:27 AM T [facility] MONOCYTES % 11.7 % 03/04/2025 5:27 AM CDT [facility] EOSINOPHILS 0.1 % 03/04/2025 5:27 AM CDT [facility] BASOPHILS 0.4 % 03/04/2025 5:27 AM T [facility] IMMATURE GRANS % 0.4 % 03/04/20 5:27 AM T [facility] ABS. NEUTROPHILS 8.52(H) 1.80 - 7.70 x10'3/uL 03/04/2025 5:27 AM CDT [facility] ABS. LYMPHOCYTES 0.93(L) 1.00 - 4.80 x10'3/uL 03/04/2025 5:27 AM [facility] ABS. MONOCYTES 1.27(H) 0.30 - 0.82 x10'3/uL 03/04/2025 5:27 AM [facility] ABS. EOSINOPHILS 0.01(L) 0.04 - 0.54 x10'3/uL 03/04/2025 5:27 AM T [facility] ABS. BASOPHILS 0.04 0.01 - 0.08 x10'3/uL 03/04/2025 5:27 AM [facility] ABS. IMMATURE GRANULOCYTES 0.04 0.00 - 0.49 x10'3/uL 03/04/2025 5:27 AM [facility] 03/04/2025 4:40 AM CDT Lisa Schmidt MD LABORATORY Final Result [facility] [address] [place] [address], [place] [phone] * ECG 12 lead (03/03/2025 11:36 AM CDT) 03/03/2025 11:3 6 AM CDT Narrative 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: Ni : 1950 Requested By: ADIS ROSEN Order Number: [id number] Reading MD: Cookie Gaines Measurements Intervals [place] Rate: 133 P: 0 MT: 0 QRS: -25 QRSD: 100 T: 180 QT: 332 QTc: 494 Interpretive Statements ATRIAL FIBRILLATION WITH RAPID VENTRICULAR RESPONSE INFERIOR MYOCARDIAL INFARCTION , PROBABLY OLD [40+ ms Q WAVE AND/OR ST/T ABNORMALITY IN II/aVF] Compared to ECG 07/22/2023 11:38:00 Myocardial infarct finding now present Aberrant conduction of supraventricular beat(s) no longer present Procedure Note Cookie Gaines MD - 03/03/[address] Test Date: 2025-03-03 Pat Name: PEDRO VIRAMONTES Department: 40 Room: A317 Gender: Male 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 * SURG XR RETROGRD UROGRAPHY (03/03/2025 11:11 AM CDT) Anatomical Region Laterality Modality Abdomen Radiographic Naina ging 03/03/2025 3:21 PM CDT Impressions 03/03/2025 3:22 PM CDT impression: Intraprocedural fluoroscopy guidance provided. No radiologist present. Please see procedure report for detail. Radiation dose air kerma: 31.7 mGy; Fluoroscopy time: 2.2 minutes Referred By: SAUL ALEXANDER Interpreted By: Darion Peterson MD, 03/03/2025 3:21 PM Narrative 03/03/2025 3:22 PM CDT [place] [id number] Exam: Surgical XR retrograde urography Findings and Procedure Note Darion Peterson MD - 03/03/2025 [place] [address] Exam: Surgical XR retrograde urography Findings and impression: Intraprocedural fluoroscopy guidance provided. No radiologist present.Please see procedure report for detail. Radiation dose air kerma: 31.7 mGy; Fluoroscopy time: 2.2 minutes Referred By: SAUL ALEXANDER Interpreted By: Darion Peterson MD, 03/03/2025 3:21 PM Lisa Schmidt MD IMAGES ONLY Final Result * CULTURE, BACTERIA, BLOOD (03/03/2025 12:12 AM CDT) Only the most recent of2 resultswithin the time period is included. SPEC DESCRIPTION BLOOD 03/02/2025 11:16 PM CDT [facility] SPECIAL REQUESTS NO SPECIAL REQUEST 03/02/2025 11:16 PM CDT [facility] CULTURE RESULT NO GROWTH 5 DAYS 03/08/2025 10:26 AM CDT [facility] BLOOD SPECIMEN OBTAINED FOR BLOOD CULTURE / Unknown 03/03/2025 12:12 AM CDT 03/03/2025 1:02 AM CDT Saul Alexander MD MICROBIOLOGY - GENERAL ORD ERABLES Final Result [facility] [address] [place] [address], [place] [phone] [facility] [address] [place] [address], [place] [phone] * CT ABD+PEL WO CON (03/03/2025 12:03 AM CDT) Anatomical Region Laterality Modality Abdomen Computed Tomogra phy 03/03/2025 12:0 8 AM CDT Impressions 03/03/2025 12:20 AM CDT Impression: 1. Multiple bilateral obstructing ureteral stones described in detail above. 2. Additional chronic nonemergent findings detailed above. Referred By: Interpreted By: Orestes Vallejo MD, 03/03/2025 12:08 AM Narrative 03/03/2025 12:20 AM CDT [facility] [address] [place] [address] Examination: CT abdomen and pelvis without IV contrast. Clinical Information: Left abdominal and flank pain. Recent lithotripsy. Comparison: CT abdomen and pelvis 11/10/2024 Technique: IV contrast: None Oral contrast: None. Technical comments: Standard technique. Dose reduction: This CT exam was performed using one or more of the following dose reduction techniques: Automated exposure control, adjustment of the mA and/or kV according to patient size, and/or use of iterative reconstruction technique. Findings: LOWER CHEST The visualized lung bases demonstrate mild peripheral interstitial thickening. Pattern compatible with fibrosis, unchanged. Coronary calcifications. UPPER ABDOMEN Liver and bile ducts: Normal in size and contour. No biliary dilatation. Gallbladder: Cholecystectomy. Pancreas: Negative. Spleen: Negative. RETROPERITONEUM Adrenals: Negative. Kidneys: Curvilinear obstructing stone or conglomerate of stones in the distal left ureter spanning across the ureterovesicular junction measuring up to 4.8 cm in total length and 0.8 cm in width on coronal image 108. There is moderate left hydroureteronephrosis. Additional large nonobstructing left renal stone conglomerate measuring up to 2.1 cm. There is an obstructing stone in the mid right ureter measuring 1.1 cm in length and 0.6 cm in width. A second stone is in the right ureterovesicular junction measuring 1.2 cm in length and and 0.5 cm in width. Minimal right hydronephrosis. Complex left renal cyst measures 2.4 cm, stable. Multiple simple right renal cysts. Lymph nodes: No lymphadenopathy in the abdomen or pelvis. BOWEL AND PERITONEUM Bowel: Normal in caliber and wall thickness. Free air or fluid: None. VASCULATURE The abdominal aorta and main branches are unremarkable. PELVIS Otherwise probably visualized due to metallic artifact. BONES/SOFT TISSUES Bilateral total hip arthroplasty. Procedure Note Orestes Vallejo, - 03/03/2025 [facility] [address] [place] [address] Examination: CT abdomen and pelvis without IV contrast. Clinical Information: Left abdominal and flank pain. Recentlithotripsy. Comparison: CT abdomen and pelvis 11/10/2024 Technique: IV contrast: None Oral contrast: None. Technical comments: Standard technique. Dose reduction: This CT exam was performed using one or more of thefollowing dose reduction techniques: Automated exposure control,adjustment of the mA and/or kV according to patient size, and/or use ofiterative reconstruction technique. Findings: LOWER CHEST The visualized lung bases demonstrate mild peripheral interstitialthickening. Pattern compatible with fibrosis, unchanged. Coronarycalcifications. UPPER ABDOMEN Liver and bile ducts: Normal in size and contour. No biliary dilatation. Gallbladder: Cholecystectomy. Pancreas: Negative. Spleen: Negative. RETROPERITONEUM Adrenals: Negative. Kidneys: Curvilinear obstructing stone or conglomerate of stones in thedistal left ureter spanning across the ureterovesicular junction measuringup to 4.8 cm in total length and 0.8 cm in width on coronal image 108.There is moderate left hydroureteronephrosis. Additional largenonobstructing left renal stone conglomerate measuring up to 2.1 cm. There is an obstructing stone in the mid right ureter measuring 1.1 cm inlength and 0.6 cm in width. A second stone is in the rightureterovesicular junction measuring 1.2 cm in length and and 0.5 cm inwidth. Minimal right hydronephrosis. Complex left renal cyst measures 2.4 cm, stable. Multiple simple rightrenal cysts. Lymph nodes: No lymphadenopathy in the abdomen or pelvis. BOWEL AND PERITONEUM Bowel: Normal in caliber and wall thickness. Free air or fluid: None. VASCULATURE The abdominal aorta and main branches are unremarkable. PELVIS Otherwise probably visualized due to metallic artifact. BONES/SOFT TISSUES Bilateral total hip arthroplasty. Impression: 1. Multiple bilateral obstructing ureteral stones described in detailabove. 2. Additional chronic nonemergent findings detailed above. Referred By: Interpreted By: Orestes Vallejo MD, 03/03/2025 12:08 AM us Saul Alexander MD CT Final Resu lt * LACTIC ACID W REFLEX (SEPSIS) (03/02/2025 11:25 PM CDT) LACTIC ACID VENOUS 1.5 0.4 - 2.0 MMOL/L 03/03/2025 12:01 AM CDT [facility] 03/02/2025 11:2 5 PM CDT Saul Alexander MD LABORATORY Final Resu lt [facility] [address] [place] [address], [place] [phone] * (ABNORMAL) COMPREHENSIVE METABOLIC PANEL (03/02/2025 11:25 PM CDT) GLUCOSE 141(H) 70 - 99 MG/DL 03/03/2025 12:20 AM CDT [facility] BUN 26(H) 7 - 18 MG/DL 03/03/2025 12:20 AM CDT [facility] CREATININE S/P/B 1.75(H) 0.7 - 1.3 MG/DL 03/03/2025 12:20 AM CDT [facility] SODIUM S/P/B 129(L) 136 - 145 MMOL/L 03/03/2025 12:20 AM CDT [facility] POTASSIUM S/P/B 3.7 3.5 - 5.1 MMOL/L 03/03/2025 12:20 AM CDT [facility] CHLORIDE S/P/B 91(L) 100 - 108 MMOL/L 03/03/2025 12:20 AM CDT [facility] CO2 26.0 21 - 32 MMOL/L 03/03/2025 12:20 AM CDT [facility] CALCIUM S/P/B 9.0 8.5 - 10.1 MG/DL 03/03/2025 12:20 AM [facility] BILIRUBIN TOTAL S/P/B 2.4(H) 0.2 - 1.2 MG/DL 03/03/2025 12:20 AM [facility] Comment: THIS ASSAY IS NOT RECOMMENDED FOR PATIENTS UNDERGOING TREATMENT WITH ELTROMBOPAG DUE TO THE POTENTIAL FOR FALSELY ELEVATED RESULTS. TOTAL PROTEIN S/P/B 7.3 6.4 - 8.2 G/DL 03/03/2025 12:20 AM [facility] ALBUMIN S/P/B 3.5 3.4 - 5.0 G/DL 03/03/2025 12:20 AM [facility] AST 16 15 - 37 U/L 03/03/2025 12:20 AM [facility] ALT 15(L) 16 - 60 U/L 03/03/2025 12:20 AM [facility] ALKALINE PHOSPHATASE S/P/B 44(L) 50 - 136 U/L 03/03/2025 12:20 AM [facility] ANION GAP 12.0 5 - 15 MMOL/L 03/03/2025 12:20 AM [facility] BUN CREATININE RATIO 14.9 6 - 26 03/03/2025 12:20 AM [facility] A/G RATIO 0.9(L) 1.0 - 2.0 RATIO 03/03/2025 12:20 AM [facility] GFR ESTIMATE 40(L) >90 ML/MIN/1.7 3 M2 03/03/2025 12:20 AM [facility] Comment: NOTE: eGFR is not calculated for patients <18 years of age. This is an estimated GFR calculation using the new CKD EPI creatinine equation without race and so does not require a correction factor for race. This estimated GFR should not be used for calculating drug doses. 03/02/2025 11:2 5 PM CDT us Saul Alexander MD LABORATORY Final Resu lt [facility] [address] [place] [address], [place] [phone] * (ABNORMAL) URINALYSIS (03/02/2025 11:15 PM CDT) COLOR (U) YELLOW 03/02/2025 11:47 PM CDT [facility] TRANSPARENCY CLEAR 03/02/2025 11:47 PM CDT [facility] SPECIFIC GRAVITY (U) 1.010 1.002 - 1.030 03/02/2025 11:47 PM CDT [facility] U PH 6.0 4.5 - 8.0 03/02/2025 11:47 PM CDT [facility] LEUKOCYTES (U) NEGATIVE NEGATIVE 03/02/2025 11:47 PM CDT [facility] NITRITES NEGATIVE NEGATIVE 03/02/2025 11:47 PM CDT [facility] PROTEIN RANDOM (U) 1+(A) NEGATIVE 03/02/2025 11:47 PM CDT [facility] GLUCOSE (U) 4+(A) NEGATIVE 03/02/2025 11:47 PM CDT [facility] KETONES MG/DL (U) NEGATIVE NEGATIVE 03/02/2025 11:47 PM CDT [facility] UROBILINOGEN NORMAL NORMAL EU/DL 03/02/2025 11:47 PM CDT [facility] BILIRUBIN (U) NEGATIVE NEGATIVE 03/02/2025 11:47 PM CDT [facility] BLOOD (U) 2+(A) NEGATIVE 03/02/2025 11:47 PM CDT [facility] WBC/HPF 5-10 /HPF 03/02/2025 11:47 PM CDT [facility] RBC/HPF 5-10 /HPF 03/02/2025 11:47 PM CDT [facility] EPI/HPF 0-5 /HPF 03/02/2025 11:47 PM CDT [facility] BACTERIA (U) 3+ /HPF 03/02/2025 11:47 PM CDT [facility] URINE SPECIMEN OBTAINED BY CLEAN CATCH PROCEDURE / Unknown 03/02/2025 11:15 PM CDT Saul Alexander MD URINE ORDERABLES Final Res ult [facility] [address] [place] [address], * (ABNORMAL) CULTURE URINE (03/02/2025 11:15 PM CDT) SPEC DESCRIPTION URINE CLEAN CATCH 03/02/2025 11:34 PM CDT [facility] SPECIAL REQUESTS NO SPECIAL REQUEST 03/02/2025 11:34 PM CDT [facility] CULTURE RESULT >100,000 COL/ML ENTEROCOCCU S SPECIES (A) 03/05/2025 7:56 AM CDT [facility] URINE SPECIMEN OBTAINED BY CLEAN CATCH PROCEDURE / Unknown 03/02/2025 11:15 PM CDT 03/02/2025 11:34 PM CDT Narrative Organism Antibiotic Method Susceptibility Enterococcus species AMPICILLIN LOUIE (VITEK) <=2: Sensitive Enterococcus species NITROFURANTOIN LOUIE (VITEK) <=16: Sensitive Enterococcus species GENT. SYNERGY SCREEN LOUIE (VITEK) Sensitive Enterococcus species PENICILLIN G LOUIE (VITEK) 2: Sensitive Saul Alexander MD MICROBIOLOGY - GENERAL ORD ERABLES Final Result [facility] [address] [place] [address], [place] [phone] [facility] [address] [place] [address], [place] [phone] * (ABNORMAL) HEMOGLOBIN, GLYCOSYLATED (07/20/2024 9:06 AM BALANCE SHEET ANALYST) HGB A1C 5.9(H) <5.7 % 07/20/2024 4:58 PM BALANCE SHEET ANALYST [facility] Comment: ADA GUIDELINES 2010 5.7 TO 6.4% INCREASED RISK OF DIABETES > OR = 6.5% CONSISTENT WITH DIABETES ESTIMATED AVG GLUCOSE 123 mg/dL 07/20/2024 4:58 PM BALANCE SHEET ANALYST [facility] 07/20/2024 9:06 AM BALANCE SHEET ANALYST Yovani Mendoza MD LABORATORY Final Res ult [facility] [address] [place] [address], [place] [phone] * (ABNORMAL) LIPID PANEL (07/20/2024 9:06 AM BALANCE SHEET ANALYST) CHOLESTEROL 158 <200 MG/DL 07/20/2024 11:21 AM BALANCE SHEET ANALYST [facility] TRIGLYCERIDES 223(H) <150 MG/DL 07/20/2024 11:21 AM BALANCE SHEET ANALYST [facility] HDL 39(L) >40.0 MG/DL 07/20/2024 11:21 AM BALANCE SHEET ANALYST [facility] LDL (CALCULATED) 74 <100 MG/DL 07/20/2024 11:21 AM BALANCE SHEET ANALYST [facility] NON HDL CHOLESTEROL 119 <130 MG/DL 07/20/2024 11:21 AM [facility] Comment: NOTE: WHEN THE TRIGLYCERIDES ARE >200 mg/dL, NON HDL C IS A SECONDARY TARGET OF THERAPY, WITH A GOAL 30 mg/dL HIGHER THAN THE IDENTIFIED LDL C GOAL. CHOL/HDL RATIO 4.1 0.0 - 4.5 07/20/2024 11:21 AM BALANCE SHEET ANALYST [facility] VLDL CALCULATION 45 5 - 55 MG/DL 07/20/2024 11:21 AM [facility] LIPID INTERPRETATION 07/20/2024 11:21 AM [facility] Comment: NIH CONCENSUS REPORT RECOMMENDATIONS: ADULT CHILD LOW RISK: CHOLESTEROL <200 <170 TRIGLYCERIDE <150 --- HDL >=60 --- LDL <100 <110 BORDERLINE: CHOLESTEROL 200-239 170-199 TRIGLYCERIDE 150-199 --- HDL 40-59 --- LDL 100-159 110-129 HIGH RISK: CHOLESTEROL >=240 >=200 TRIGLYCERIDE >=200 --- HDL <40 --- LDL >=160 >=130 07/20/2024 9:06 AM BALANCE SHEET ANALYST Yovani Mendoza MD LABORATORY Final Res ult [facility] [address] [place] [address], from Last 3 Months or Most Recently Relevant to Health Maintenance Insurance [employer] Advance Directives Documents on File Type Date Recorded 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 Advance Directives and Living Will 08/04/2019 4:12 PM 10/23/18 POWER OF DEMO COORDINATOR Advance Directives and Living Will 09/19/2018 12:00 AM POWER OF DEMO COORDINATOR FO R HEALTH CARE Advance Directives and Living Will 08/03/2018 12:00 AM POWER OF DEMO COORDINATOR FO R HEALTH CARE Advance Directives and Living Will 06/21/2018 12:00 AM POWER OF DEMO COORDINATOR FO R HEALTH CARE Advance Directives and Living Will 06/21/2018 12:00 AM POWER OF DEMO COORDINATOR FO R HEALTH CARE Advance Directives and Living Will 04/08/2018 12:00 AM POWER OF DEMO COORDINATOR FO R HEALTH CARE Advance Directives and Living Will 04/08/2018 12:00 AM POWER OF DEMO COORDINATOR FO R HEALTH CARE Advance Directives and Living Will 03/22/2018 12:00 AM POWER OF DEMO COORDINATOR FO R HEALTH CARE Advance Directives and Living Will 03/22/2018 12:00 AM POWER OF DEMO COORDINATOR FO R HEALTH CARE Advance Directives and Living Will 02/01/2018 12:00 AM POWER OF DEMO COORDINATOR FO R HEALTH CARE Advance Directives and Living Will 02/01/2018 12:00 AM POWER OF DEMO COORDINATOR FO R HEALTH CARE Advance Directives and Living Will 12/14/2017 12:00 AM POWER OF DEMO COORDINATOR FO R HEALTH CARE Advance Directives and Living Will 12/14/2017 12:00 AM POWER OF DEMO COORDINATOR FO R HEALTH CARE Advance Directives and Living Will 09/13/2017 12:00 AM POWER OF DEMO COORDINATOR FO R HEALTH CARE Advance Directives and Living Will 09/13/2017 12:00 AM POWER OF DEMO COORDINATOR FO R HEALTH CARE Advance Directives and Living Will 08/03/2017 12:00 AM POWER OF DEMO COORDINATOR FO R HEALTH CARE Advance Directives and Living Will 08/03/2017 12:00 AM POWER OF DEMO COORDINATOR FO R HEALTH CARE Advance Directives and Living Will 06/22/2017 12:00 AM POWER OF DEMO COORDINATOR FO R HEALTH CARE Advance Directives and Living Will 06/22/2017 12:00 AM POWER OF DEMO COORDINATOR FO R HEALTH CARE Advance Directives and Living Will 03/23/2017 12:00 AM POWER OF DEMO COORDINATOR FO R HEALTH CARE Advance Directives and Living Will 03/23/2017 12:00 AM POWER OF DEMO COORDINATOR FO R HEALTH CARE Advance Directives and Living Will 02/02/2017 12:00 AM POWER OF DEMO COORDINATOR FO R HEALTH CARE Advance Directives and Living Will 02/02/2017 12:00 AM POWER OF DEMO COORDINATOR FO R HEALTH CARE Advance Directives and Living Will 12/14/2016 12:00 AM POWER OF DEMO COORDINATOR FO R HEALTH CARE Advance Directives and Living Will 12/14/2016 12:00 AM POWER OF DEMO COORDINATOR FO R HEALTH CARE Advance Directives and Living Will 09/08/2016 12:00 AM POWER OF DEMO COORDINATOR FO R HEALTH CARE Advance Directives and Living Will 09/08/2016 12:00 AM POWER OF DEMO COORDINATOR FO R HEALTH CARE Advance Directives and Living Will 07/27/2016 12:00 AM POWER OF DEMO COORDINATOR FO R HEALTH CARE Advance Directives and Living Will 07/27/2016 12:00 AM POWER OF DEMO COORDINATOR FO R HEALTH CARE Advance Directives and Living Will 07/27/2016 12:00 AM POWER OF DEMO COORDINATOR FO R HEALTH CARE Advance Directives and Living Will 07/27/2016 12:00 AM POWER OF DEMO COORDINATOR FO R HEALTH CARE Advance Directives and Living Will 06/15/2016 12:00 AM POWER OF DEMO COORDINATOR FO R HEALTH CARE Advance Directives and Living Will 06/15/2016 12:00 AM POWER OF DEMO COORDINATOR FO R HEALTH CARE Advance Directives and Living Will 06/05/2016 12:00 AM POWER OF DEMO COORDINATOR FO R HEALTH CARE Advance Directives and Living Will 06/05/2016 12:00 AM POWER OF DEMO COORDINATOR FO R HEALTH CARE * Full Code (Latest Code Status on File) Date Activated Date Inactivated Comments 03/03/2025 5:45 AM 03/04/2025 6:30 PM Care Teams Recreation Engineer Relationship Specialty Start Date End Date Janee Nath PA-C [address] [place] [address] PCP - General 08/28/24 Neto Schaefer MD [address] [phone] [place] Envelope Cutter CARDIOVASCULAR DISEASE 02/21/16 Poncho Troy MD [address] [phone] Envelope Cutter CARDIOVASCULAR DISEASE 03/09/16
--- OUTSIDE RECORDS SUMMARY | 2025-03-22 01:08 | XMS_ITS | Encounter Summary ---
Author Organization [facility] Address [address] [place] [address] Care Team Providers Care Account Executive Healthcare Name Role Phone Neto Schaefer MD Unavailable Goyo Beavers MD Primary Care Provider [phone] Poncho Troy MD Unavailable Yovani Mendoza MD Primary Care Provider [phone] Janee Nath-C Primary Care Provider [phone] Encounter Details Date Type Department Care Team (Late st Contact Info) Description 09/03/[address] [facility] [address] [place] [phone] Michelle Knox, ANP-BC [facility]. 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 No / Unsure 08/22/2021 9:15 AM TRANSACTION MANAGER documented as of this encounter Plan of Treatment Upcoming Encounters Date Type Department Care Team (Late st Contact Info) Description 09/27/2025 10:30 AM TRANSACTION MANAGER Office Visit [place] [facility] [address] [place] [phone] Neto Schaefer MD [id number] [place], [place] [phone] documented as of this encounter Visit Diagnoses Not on filedocumented in this encounter Care Teams Account Executive Healthcare Relationship Specialty Start Date End Date Goyo Beavers MD [facility] [address] [place], [place] [phone] PCP - General INTERNAL MEDICINE 03/09/16 07/08/22 Yovani Mendoza MD [address] [place] [id number] PCP - General FAMILY PRACTICE 07/09/22 08/27/24 Janee Nath PA-C [address] [place] [address] PCP - General 08/28/24 Neto Schaefer MD [facility] [address] [place], [place] [phone] [place] Traffic Supervisor CARDIOVASCULAR DISEASE 02/21/16 Poncho Troy MD [address] [address] [place] Traffic Supervisor CARDIOVASCULAR DISEASE 03/09/16 documented as of this encounter
--- NOTE | 2025-03-22 06:23 | WPDHPUPDATE1 ---
History and Physical Update Update Date/Time: 03/22/25 06:23 History and Physical has been reviewed, including an updated exam of the patient. There are NO changes in the patient's condition. Risks, benefits, and alternatives have been discussed and questions answered. Patient agrees to proceed with procedure.
--- NOTE | 2025-03-22 07:29 | WPDANESEPPF ---
Anes - Initial Pre Proc Eval Procedure: Operation Date: 03/22/25 10:15 Proposed Procedures p Cystoscopy, Bilateral Ureteroscopy, Holmium Laser Lithotripsy, Bilateral Stone Extraction, Possible Bilateral Retrograde Pyelogram, Bilateral Stent Placement - Anish Andrew MD Date/Time: 03/22/25 07:29 Surgeon: Anish Andrew MD Pre Op Diagnosis: Oneal Kidney Stones with Patient Data Age: 74 Gender: M Height: 1.88 m Weight: 112.95 kg Allergies Allergy/AdvReac Type Severity Reaction Status Date / Time No Known Allergies Allergy Unknown Verified 03/16/25 09:48 Home Medications ?Medication ?Instructions ?Recorded ?Confirmed ?Type aspirin 81 mg tablet,delayed 81 mg PO DAILY 07/07/22 03/16/25 History release (Adult Low Dose Aspirin) cholecalciferol (vitamin D3) 50 50 mcg PO DAILY 07/07/22 03/16/25 History mcg (2,000 unit) capsule mecobalamin (vitamin B12) 1,000 2,000 mcg sublingual DAILY 07/07/22 03/16/25 History mcg disintegrating tablet,sublingual multivitamin (Daily Multi-Vitamin 1 tablet PO DAILY 07/07/22 03/16/25 History tablet) omega-3 fatty acids-fish oil 360 1 cap PO DAILY 07/07/22 03/16/25 History mg-1,200 mg capsule (Fish Oil) lisinopril 20 mg tablet 20 mg PO DAILY 07/28/23 03/16/25 History warfarin 5 mg tablet 5 mg PO DAILY 07/28/23 03/16/25 History dapagliflozin propanediol 10 mg 10 mg PO QAM #90 tabs 08/21/24 03/16/25 Rx tablet (Farxiga) metoprolol tartrate 50 mg tablet 75 mg PO BID 08/21/24 03/16/25 History metformin 500 mg tablet,extended 500 mg PO BID 12/13/24 03/16/25 History release 24 hr metoprolol tartrate 25 mg tablet 25 mg PO Q12H 12/13/24 03/16/25 History gabapentin 300 mg capsule 300 mg PO TID #90 caps 01/24/25 03/16/25 Rx amlodipine 10 mg tablet 10 mg PO DAILY #90 tabs 02/02/25 03/16/25 Rx fenofibrate 160 mg tablet 160 mg PO DAILY #90 tabs 02/02/25 03/16/25 Rx hydrochlorothiazide 12.5 mg tablet 12.5 mg PO DAILY #90 tabs 02/02/25 03/16/25 Rx hydrocodone 5 mg-acetaminophen 325 1 - 2 tablet PO Q6H PRN pain #20 02/02/25 03/16/25 Rx mg tablet tabs Patient hx anesthesia problems: none Family hx anesthesia problems: none Results Review: All pre-operative results and documents have been reviewed as part of the pre-operative evaluation. [facility] Past Medical History Medical History Chronic kidney disease Gout Screening for prostate cancer Hypothyroidism PVC (premature ventricular contraction) Paroxysmal atrial flutter Paroxysmal A-fib Colon cancer SHELL (obstructive sleep apnea) Uses CPAP machine follows with ENT- [place] sinus sleep an allergy Diabetes Dyslipidemia Arthritis Hypertension Surgical History Surgical History (Updated 02/16/25 @ 11:25 by Janee Nath PA-C) History of lithotripsy left and right Total knee replacement status left 08/28/2022 Status post catheter ablation of atrial fibrillation H/O colonoscopy 01/15/22 H/O colectomy History of cholecystectomy History of hip replacement bilateral Social History Social History Social History: 02/09/25 very confident with medical forms. Smoking packs per day: 1 Smoking cigarettes per day: 20.0 Years smoked: 25 Smoking pack-years: 25.00 Smoking status: Former smoker Tobacco type: cigarettes Smoking end date: 08/09/09 Alcohol intake: never Substance use: never Do You Feel Safe in your Home?: Yes Lack of Transportation: No Lack of Food: Never True Current Housing: I Have Housing Concerned About Future Housing: No Difficulty Paying Gas/Electric Bills: No Difficulty Paying for Meds: No Currently Unemployed: No Education: Associate Degree Difficulty w/ Childcare or Family Care: No Living arrangements: with family Additional living arrangements comments: [place] Occupation/Education: retired Spiritual care concerns: No Agree to blood products: Yes Anes - Eval Final PreProcedure Day of Procedure 03/22/25 07:29 Patient weight: obese Heart: regular rate and rhythm Lungs: clear to auscultation Airway: Mallampati scale class II Neurological: alert and oriented Last oral intake: >/= 8 hours ASA classification: III Emergent: no Anesthetic plan: proceed Anesthesia type and monitoring: general LMA and standard monitoring Results Review: All pre-operative results and documents have been reviewed as part of the pre-operative evaluation. Informed Consent: The patient's anesthetic plan and its attendant risks and benefits were discussed with the patient/family/POA. Questions were solicited and answers provided to the satisfaction of the patient/family/POA.
[2025-03-22] MEDS: LACTATED RINGERS 1,000 ML 30 ML IV CONT (08:46)
[2025-03-22 09:10] LABS: INR 1.1; Prothrombin Time 14.7 Seconds (11.1-14.7)
[2025-03-22 09:11] LABS: Partial Thromboplastin Time 33.8 Seconds (22.3-36.8)
[2025-03-22] MEDS: ceFAZolin 2 GM in SODIUM CHLORIDE 0.9% IV 50 ML 100 ML IVPB (09:18)
[2025-03-22] MEDS: LIDOCAINE 2% GEL UROJET 10 ML PKG MUCOUS MEM (09:36)
--- NOTE | 2025-03-22 10:19 | S_PTH ---
PATIENT: Rene Viramontes LOC: [facility] U#:[id number] AGE/SX: 74/M ROOM: RE03/22/[address]: Anish Andrew MD : [id number] BED: DIS: 03/22/2025 SPEC #: [id number] RECD: 03/22/25 13:24 STATUS: ZEE REQ #: [id number] BALJINDER: 03/22/25 10:[address]: Anish Andrew DEPT: [facility] Surgical RECD BY: Pati Hayden ENTERED: 03/22/25 13:25 SP TYPE: Surgical OTHR DR: Jaene Nath PA-C Tissues: A - Stone Procedures: Gross Exam Level 1 Crystalline Analysis
--- NOTE | 2025-03-22 11:18 | W.PM.PROC2 ---
Procedure Note - Detailed Date of Procedure 03/22/25 Pre-op Diagnosis Bilateral ureteral [place]str[place] Post-op Diagnosis Same Procedure Performed Cystoscopy, bilateral ureteral stent removal, bilateral ureteroscopy with laser lithotripsy, stone extraction, bilateral retrograde pyelography and bilateral ureteral stent replacement Surgeon Anish Andrew MD Anesthesia General Description of Procedure Patient is brought the operative suite was prepped draped in routine sterile fashion while in dorsal lithotomy position after the uneventful induction of a general LMA anesthetic. Cystoscopy was undertaken with a 19 F rigid cystoscope. I 1st grasped the right ureteral stent and passed a 0.035 in glidewire into the right renal pelvis. Distal ureter was dilated with an 8 F 10 F dilator and ureteroscopy was undertaken with a semi-rigid ureteral scope. There was 1 moderate-sized stone which I used a 200 micron laser fiber to break and all pieces were extracted with a 1.9 F disposable stone basket. Repeat ureteroscopy and retrograde pyelography identified no additional right ureteral or collecting system stones. It was a bit of a different story on the left side. I grasped the stent and placed a 0.035 in glidewire. Distal ureteroscopy revealed countless small ureteral stones all of which were extracted with a rigid ureteral scope and 1.9 F basket. I fractured a couple ease fragments with this a Brandt laser fiber. Having cleared the distal ureter I performed proximal ureteroscopy with 7.5 F flexible ureteral scope. There were a few remaining stone fragments in a mid pole calyx which I dusted using the Brandt laser fiber. On the right side I replaced a 4.8 F ureteral stent and on the left of 6 F stent. Scopes and wires removed he was taken recovery room good condition Drains Yes Packing No Pathology Yes
== END 2025-03-22 12:55 | disposition home or self-care (01) ==
PROVIDERS: Anesthesiology; PCP Physician Assistant Medical; Visit Provider Urology
PROC: (CPT 52352; principal; 2025-03-22 10:15)
DX: N20.1 Calculus of ureter (principal); E03.9 Hypothyroidism, unspecified; E11.22 Type 2 diabetes mellitus with diabetic chronic kidney disease; I12.9 Hypertensive chronic kidney disease with stage 1 through stage 4 chronic kidney disease, or unspecified chronic kidney disease; N18.9 Chronic kidney disease, unspecified; E78.00 Pure hypercholesterolemia, unspecified; I49.3 Ventricular premature depolarization; I48.0 Paroxysmal atrial fibrillation; I48.92 Unspecified atrial flutter; M19.90 Unspecified osteoarthritis, unspecified site; G47.33 Obstructive sleep apnea (adult) (pediatric); E66.9 Obesity, unspecified; Z68.32 Body mass index [BMI] 32.0-32.9, adult; Z79.84 Long term (current) use of oral hypoglycemic drugs; Z79.01 Long term (current) use of anticoagulants; Z79.82 Long term (current) use of aspirin; Z79.891 Long term (current) use of opiate analgesic; Z99.89 Dependence on other enabling machines and devices; Z98.890 Other specified postprocedural states; Z90.49 Acquired absence of other specified parts of digestive tract; Z87.891 Personal history of nicotine dependence; Z85.038 Personal history of other malignant neoplasm of large intestine; Z82.49 Family history of ischemic heart disease and other diseases of the circulatory system
CPT/HCPCS: 52356; 36415; 74420; 82365; 82948; 85610; 85730; 88300; J0690; C1769; C1894; C2617; J1100; J2405; J2704; J7120; Q9966